=== PATIENT | female | born 1950 | race Caucasian/White ===

== ENCOUNTER → 2019-04-18 11:53 | Outpatient (BNVA) | payer MEDICARE, MEDICAID, SELFPAY | PROVIDERS: Family Provider Nurse Practitioner; PCP Nurse Practitioner; Visit Provider Anesthesiology | DX: M51.36 Other intervertebral disc degeneration, lumbar region (principal); M47.819 Spondylosis without myelopathy or radiculopathy, site unspecified; Z79.891 Long term (current) use of opiate analgesic | CPT/HCPCS: 99213; 99214 ==

== ENCOUNTER → 2019-05-02 08:37 | Outpatient (BNVA) | payer MEDICARE, MEDICAID, SELFPAY | PROVIDERS: Family Provider Nurse Practitioner; PCP Nurse Practitioner; Visit Provider Nurse Practitioner | DX: Z00.00 Encounter for general adult medical examination without abnormal findings (principal) | CPT/HCPCS: 80053; 80061; 82306; 84443; 85025 ==

== ENCOUNTER 2019-07-04 08:40 | Emergency (ER) | payer MEDICARE, MEDICAID, SELFPAY ==
[2019-07-04 08:55] VITALS: BP 110/71; PULSE 99; RESP 16; TEMP 36.7; O2SAT 100; BMI 30.5
[2019-07-04 09:08] VITALS: RESP 18; O2SAT 97
--- NOTE | 2019-07-04 09:09 | PC.NURSE ---
Pt states she wasn't able to get into her doctor's office, so they told her she needs to come into the ER or urgent care.
--- NOTE | 2019-07-04 09:22 | ED_ITS ---
HPI - Neuro Symptoms/Deficit General: Chief Complaint: Neuro Symptoms/Deficit Stated Complaint: HANDS/LEGS NUMB Time Seen by Provider: 07/04/19 08:57 History of Present Illness: HPI Narrative: 68 yo female presents emergency room with bilateral arm numbness that began this morning she is complaining of not being able to feel her arms her feet are having a numb tingling sensation in them. She states repeatedly she has to have ice on her forehead at all times or she will pass out. She is very focused on this. She denies nausea vomiting diarrhea no recent head injury or falls denies any other illness. Review of systems is negative she not had any recent febrile illness cough or shortness of breath. She specifically denies any urinary retention or fecal incontinence. She does mention she has had neck and low back problems in the past. Associated symptoms: Deny chest pain, malaise, nausea or vomiting Review of Systems Const: Denies: fever, chills, body aches, change in appetite, fatigue or malaise ENMT: Denies: throat pain, ear pain, nasal discharge or nasal congestion Card: Denies: chest pain, edema, shortness of breath on exertion or shortness of breath when lying down Resp: Denies: shortness of breath, productive cough or non-productive cough GI: Denies: abdominal pain, nausea, vomiting, vomiting blood, coffee grounds in vomit, diarrhea, constipation, bloating, blood in stool or black tarry stool : Denies: flank pain, difficulty urinating, painful urination, urinary frequency or urinary urgency Skin/Breast: Denies: rash or itching Psych: Reports: anxiety PFSH ED PFSH: Medical History (Updated 07/04/19 @ 11:14 by Faheem Rodríguez DO) Acute pain of left knee Anxiety Chronic sinusitis COPD (chronic obstructive pulmonary disease) DDD (degenerative disc disease), lumbar Dementia Depression Encounter for long-term opiate analgesic use Facet joint disease GERD (gastroesophageal reflux disease) Hyperlipidemia Hypertension Hypothyroidism Insomnia Lumbar foraminal stenosis Other intervertebral disc degeneration, lumbar region Pain in right hip Social History Smoking and tobacco status: never smoked Second hand smoke exposure: No Alcohol intake: never History of recent travel: No Physical Exam Const: GENERAL APPEARANCE: cooperative ORIENTATION/CONSCIOUSNESS: Yes awake, Yes oriented to person, Yes oriented to place and Yes oriented to time HENMT: COMMON NORMALS: normocephalic, head/scalp atraumatic, hearing grossly normal bilaterally, external ears normal, EAC's normal, TM's normal bilaterally, nasal mucous membranes and turbinates normal, moist oral mucous membranes and oropharynx normal HEAD & SCALP: normocephalic and atraumatic NOSE: nasal mucous membranes and turbinates normal EXTERNAL EAR: Yes external ears normal EXTERNAL AUDITORY CANAL: EAC's normal TYMPANIC MEMBRANE: TM's normal bilaterally Eye: COMMON NORMALS: PERRL, EOMs intact bilaterally, conjunctivae normal and no scleral icterus CONJUNCTIVA: Yes conjunctivae normal PUPIL: Yes PERRL Neck/C-Spine: COMMON NORMALS: full ROM, no lymphadenopathy, supple and no JVD Lymph: LYMPHATIC: no lymphadenopathy noted and no lymphedema noted Resp: COMMON NORMALS: normal respiratory effort, no retractions, no use of accessory muscles and clear to auscultation bilaterally AUSCULTATION: clear to auscultation bilaterally Cardio: COMMON NORMALS: no JVD, regular rate, regular rhythm and no murmurs RATE: regular rate RHYTHM: regular rhythm GI: COMMON NORMALS: soft to palpation and no hepatosplenomegaly AUSCULTATION: Yes normoactive bowel sounds PALPATION: Yes soft, No tender, No guarding and Yes no hepatosplenomegaly Extremity: COMMON NORMALS: normal to inspection, normal capillary refill, no clubbing, cyanosis or edema, no calf tenderness and no pedal edema Neuro: SENSORIUM/ORIENTATION: Yes oriented to person, Yes oriented to place and Yes oriented to time Psych: COMMON NORMALS: mental status grossly normal ATTITUDE: Yes other (Anxious) MOOD & AFFECT: Yes anxious Skin: COMMON NORMALS: no rashes or lesions noted GENERAL SKIN EXAM: no rashes or lesions noted Course Vital Signs: Vital signs: Vital Signs Temperature 98.0 F 07/04/19 08:55 Pulse Rate 84 07/04/19 11:43 Respiratory Rate 16 07/04/19 11:43 Blood Pressure 130/76 07/04/19 11:43 Pulse Oximetry 95 07/04/19 11:43 MDM - Neuro Symptoms/Deficit MDM Narrative: Medical decision making narrative: CT neck and low back are unremarkable there is no evidence of nerve impingement. ABG show hyperventilation. At the time we completed this imaging patient was much better all of her symptoms had revolved resolved reviewed the findings with her. Lab Data: Labs: Lab Results 07/04/19 07/04/19 07/04/19 Range/Units 10:02 10:49 10:49 WBC 5.9 (4.0-10.0) 10^3/ uL RBC 2.49 L (4.1-5.3) 10^6/u L Hgb 10.4 L (11.5-15.3) g/dL Hct 30.5 L (37.0-47.0) % MCV 122.5 H (81-99) fL MCH 41.8 H (28.0-34.0) pg MCHC 34.1 (30.0-36.0) g/dL RDW 13.4 (12.1-15.1) % Plt Count 166 (130-400) 10^3/c mm MPV 10.6 H (7.4-10.4) fL Neut % (Auto) 63.6 % Lymph % (Auto) 30.4 % Harper % (Auto) 4.4 % Eos % (Auto) 1.0 % Baso % (Auto) 0.3 % Neut # (Auto) 3.7 (1.8-7.7) 10^3/u L Lymph # (Auto) 1.8 (0.8-4.8) 10^3/u L Harper # (Auto) 0.3 (0.2-0.9) 10^3/u L Eos # (Auto) 0.1 (0.0-0.8) 10^3/u L Baso # (Auto) 0.0 (0.0-0.1) 10^3/u L Nucleated RBC % (a uto) 0 % Nucleated RBCs # 0.0 /100WBC Specimen Type Art Sample Site Lr ABG pH 7.51 H (7.35-7.45) ABG pCO2 30.7 L (35-45) mmHg ABG pO2 90.9 (80.0-100.0) mmH g ABG HCO3 24.2 (22-26) mmol/L ABG O2 Saturation 96.7 ABG Base Excess 1.6 (-2.0-2.0) mmol/ L Shade Test Yes A-a O2 Gradient 18.3 H (5-10) mmHg Hematocrit 34.7 L (37-47) % Hgb O2 Saturation 96.3 (95-100) % Carboxyhemoglobin 0.1 L (0.4-20.1) %THgb Methemoglobin 0.3 L (0.4-1.5) % Total Hemoglobin 11.3 L (12-16) g/dL Sodium 143.0 141 (131-143) mmol/L Potassium 3.7 3.9 (3.5-5.0) mmol/L Glucose 121.0 H 126 H (70-115) mg/dL Ionized Calcium 1.2 (1.1-1.4) mmol/L O2 Delivery Device Ra FiO2 21.0 % Specimen Drawn By Nabde [employer] Technical Assistant ID Nabde Chloride 105 (98-107) mmol/L Carbon Dioxide 26 (22-29) mmol/L Anion Gap 13.9 (5-19) BUN 21 (8-23) mg/dL Creatinine 1.0 H (0.5-0.9) mg/dL GFR Calculation 55.5 L (90-130) mL/min Calculated Osmolal ity 290 (285-295) mOsm/k g Calcium 8.8 (8.5-10.5) mg/dL Total Bilirubin 1.6 H (0.15-1.2) mg/dL AST 24 (0-32) U/L ALT 28 (0-33) U/L Alkaline Phosphata se 71 (35-105) IU/L Total Protein 7.2 (6.6-8.7) g/dL Albumin 4.0 (3.5-5.2) g/dL Globulin 3.2 (1.3-4.6) g/dL Urine Color (Yellow) Urine Appearance (CLEAR) Urine pH (5-7) Ur Specific Gravit y (1.005-1.030) Urine Protein (Negative) Urine Glucose (UA) (Normal) Urine Ketones (Negative) Urine Blood (Negative) Urine Nitrate (Negative) Urine Bilirubin (NEGATIVE) Urine Urobilinogen (Negative) mg/dL Ur Leukocyte Bethany ase (Negative) Urine RBC (0-2) /hpf Urine WBC (0-5) /hpf Ur Squamous Epith Cells (0-5) Amorphous Sediment Urine Bacteria (NONE) Urine Mucus Salicylates < 0.3 L (3-10) mg/dL Urine Opiates Scre en (Negative) ng/mL Acetaminophen < 5.0 L (10-30) ug/mL Ur Barbiturates Sc reen (Negative) ng/mL Ur Phencyclidine S crn (Negative) ng/mL Ur Amphetamines Sc reen (Negative) ng/mL U Benzodiazepines Scrn (Negative) ng/mL Urine Cocaine Scre en (Negative) ng/mL U Marijuana (THC) Screen (Negative) ng/mL Ethyl Alcohol < 10 (0-10) mg/dL 07/04/19 07/04/19 Range/Units 11:03 11:03 WBC (4.0-10.0) 10^3/ uL RBC (4.1-5.3) 10^6/u L Hgb (11.5-15.3) g/dL Hct (37.0-47.0) % MCV (81-99) fL MCH (28.0-34.0) pg MCHC (30.0-36.0) g/dL RDW (12.1-15.1) % Plt Count (130-400) 10^3/c mm MPV (7.4-10.4) fL Neut % (Auto) % Lymph % (Auto) % Harper % (Auto) % Eos % (Auto) % Baso % (Auto) % Neut # (Auto) (1.8-7.7) 10^3/u L Lymph # (Auto) (0.8-4.8) 10^3/u L Harper # (Auto) (0.2-0.9) 10^3/u L Eos # (Auto) (0.0-0.8) 10^3/u L Baso # (Auto) (0.0-0.1) 10^3/u L Nucleated RBC % (a uto) % Nucleated RBCs # /100WBC Specimen Type Sample Site ABG pH (7.35-7.45) ABG pCO2 (35-45) mmHg ABG pO2 (80.0-100.0) mmH g ABG HCO3 (22-26) mmol/L ABG O2 Saturation ABG Base Excess (-2.0-2.0) mmol/ L Shade Test A-a O2 Gradient (5-10) mmHg Hematocrit (37-47) % Hgb O2 Saturation (95-100) % Carboxyhemoglobin (0.4-20.1) %THgb Methemoglobin (0.4-1.5) % Total Hemoglobin (12-16) g/dL Sodium (131-143) mmol/L Potassium (3.5-5.0) mmol/L Glucose (70-115) mg/dL Ionized Calcium (1.1-1.4) mmol/L O2 Delivery Device FiO2 % Specimen Drawn By [employer] Technical Assistant ID Chloride (98-107) mmol/L Carbon Dioxide (22-29) mmol/L Anion Gap (5-19) BUN (8-23) mg/dL Creatinine (0.5-0.9) mg/dL GFR Calculation (90-130) mL/min Calculated Osmolal ity (285-295) mOsm/k g Calcium (8.5-10.5) mg/dL Total Bilirubin (0.15-1.2) mg/dL AST (0-32) U/L ALT (0-33) U/L Alkaline Phosphata se (35-105) IU/L Total Protein (6.6-8.7) g/dL Albumin (3.5-5.2) g/dL Globulin (1.3-4.6) g/dL Urine Color Yellow (Yellow) Urine Appearance Cloudy (CLEAR) Urine pH 5 (5-7) Ur Specific Gravit y 1.025 (1.005-1.030) Urine Protein 1+ H (Negative) Urine Glucose (UA) Norm (Normal) Urine Ketones 1+ H (Negative) Urine Blood Neg (Negative) Urine Nitrate Negative (Negative) Urine Bilirubin 1+ H (NEGATIVE) Urine Urobilinogen 4 H (Negative) mg/dL Ur Leukocyte Bethany ase 2+ H (Negative) Urine RBC None (0-2) /hpf Urine WBC 15-25 H (0-5) /hpf Ur Squamous Epith Cells 0-4 H (0-5) Amorphous Sediment 1+ Urine Bacteria 2+ H (NONE) Urine Mucus Trace Salicylates (3-10) mg/dL Urine Opiates Scre en Negative (Negative) ng/mL Acetaminophen (10-30) ug/mL Ur Barbiturates Sc reen Negative (Negative) ng/mL Ur Phencyclidine S crn Negative (Negative) ng/mL Ur Amphetamines Sc reen Negative (Negative) ng/mL U Benzodiazepines Scrn Negative (Negative) ng/mL Urine Cocaine Scre en Negative (Negative) ng/mL U Marijuana (THC) Screen Negative (Negative) ng/mL Ethyl Alcohol (0-10) mg/dL Discharge Plan Discharge Patient Disposition: Home, Self-Care Clinical Impression: Acute hyperventilation, Anxiety Condition: Stable Prescriptions: New hydroxyzine HCl 10 mg tablet 10 mg PO Q6H PRN (Reason: anxiety) Qty: 10 RF: 0 No Action levothyroxine 50 mcg capsule 50 mcg PO DAILY Qty: 30 RF: 11 fluticasone propionate [Allergy Relief (fluticasone)] 50 mcg/actuation s pray,suspension 2 spray INTRANASAL DAILY RF: 0 buspirone 7.5 mg tablet 7.5 mg PO BID PRN (Reason: Anxiety) RF: 0 cetirizine [Allergy Relief (cetirizine)] 10 mg tablet 10 mg PO DAILY PRN (Reason: Allergy Symptoms) RF: 0 hydrochlorothiazide 25 mg tablet 25 mg PO DAILY RF: 0 naproxen 500 mg tablet 500 mg PO BID PRN (Reason: Pain) RF: 0 Symbicort 160-4.5 mcg/actuation HFA aerosol inhaler 2 puff INHALATION Q12H RF: 0 nystatin 100,000 unit/gram cream 1 applic TOPICAL BID RF: 0 albuterol sulfate [Ventolin HFA] 90 mcg/actuation HFA aerosol inhaler 1 inh INHALATION QID PRN (Reason: Shortness Of Breath) RF: 0 albuterol sulfate 2.5 mg /3 mL (0.083 %) solution for nebulization 2.5 mg INHALATION BID RF: 0 oxycodone-acetaminophen [Percocet] 5-325 mg tablet 1 tab PO TID PRN (Reason: pain) 30 Days Qty: 90 RF: 0 triamcinolone acetonide 0.1 % cream 1 applic TOPICAL DAILY Qty: 30 RF: 0 atorvastatin 20 mg tablet 20 mg PO DAILY RF: 0 ergocalciferol (vitamin D2) 1,250 mcg (50,000 unit) capsule 1,250 mcg PO Q7D RF: 0 lactulose 20 gram/30 mL solution 20 gm PO BID PRN (Reason: Constipation) RF: 0 meclizine 12.5 mg Tablet 12.5 mg PO BID PRN (Reason: Dizziness) RF: 0 Referrals: Boswell,Kristie, RESPITE PROVIDER [Primary Care Provider] - Discharge Diet: Usual diet Discharge Activity: Increase activity as tolerated Patient Instructions: Hyperventilation (ED) Discharge Date/Time: 07/04/19 11:44 Coding Level of Care Code ED Grain Oilseed Or Pasture Grower for Ashia Vega
--- NOTE | 2019-07-04 10:12 | CT_ITS ---
WS: [id number] CT cervical spin wo con* [id number] REASON FOR EXAM: neck pain IV CONTRAST ADMINISTERED: None. TOTAL EXAM DLP: 684.[address] scans at [facility] use at least one of these dose optimization techniques: automat ed exposure control; mA and/or kV adjustment per patient size (includes targeted exams where dose is matched to clinical indication); or iterative reconstruction. FINDINGS: Craniocervical junction anatomy normal no bulging changes or stenosis. C1-C2: Normal vertebral alignment exiting foramina normal no disc bulge or herniation. C2-C3. Exiting foramina normal. No disc bulge or herniation. No central spinal stenosis. C3-C4: Normal vertebral alignment. Exiting foramina normal. No disc bulge or herniation. No spinal st enosis. C4-C5: Normal vertebral alignment. Exiting foramina normal. No disc bulge or herniation. No spinal st enosis. C5-C6: Normal vertebral alignment. Exiting foramina normal. No disc bulge or herniation. No spinal st enosis. C6-C7: Central disc bulge findings. Left-sided mild to moderate exiting foraminal stenosis. No centra l spinal canal stenosis. C7-T1: Normal vertebral alignment. Exiting foramina normal. No disc bulge or herniation. Small ossicles off the vertebral bodies C4-5, C5-[address]/CT cervical spin wo con* [id number] IMPRESSION: Normal CT cervical spine
--- NOTE | 2019-07-04 10:12 | CT_ITS ---
WS: [id number] CT lumbar spine wo con* [id number] REASON FOR EXAM: lumbar back pain IV CONTRAST ADMINISTERED: none TOTAL EXAM DLP: 2291.[address] scans at [facility] use at least one of these dose optimization techniques: automat ed exposure control; mA and/or kV adjustment per patient size (includes targeted exams where dose is matched to clinical indication); or iterative reconstruction. FINDINGS: Lumbar curve convex to the left side. No definite compression changes. Retrolisthesis L1-L2 L2-3, L3-4. T12-L1: Comparison to previous exam the protrusion of the disc is not well seen today at this level. Mild narrowing of the exiting foramina on the left. L1-L2: Exiting foramina on the left narrowed moderate mild retrolisthesis. Schmorl's node present. L2-L3: Disc herniation through the foraminal area laterally. Exiting foramina on the right appear to be normal. L3-L4: Right sided hard disc material paracentral extends to the foraminal area but not through the f oramen. Retrolisthesis is seen with spurring off the posterior body of L3. L4-L5: Mild central disc bulge. Exiting foramina normal. No spinal stenosis. L5-S1: Normal vertebral alignment. Exiting foramina normal. No disc bulge or herniation. No spinal st enosis. Visualized bony pelvis appear to be normal. T12-L1: There is mild disc bulge changes no compressibility today. L2-L3 lateral disc herniation to the left. CT/CT lumbar spine wo con* [id number] IMPRESSION: Mild lumbar scoliosis convex to the left L3-L4 mild central disc bulge or disc material extends. There is again noted ef facement of the subarticular recesses bilaterally. Retrolisthesis with spurring off the posterior body of L3.
[2019-07-04 10:17] LABS: ABG PCO2 30.7 mmHg (35-45); ABG PH Result 7.51 (7.35-7.45); HCO3 ABG 24.2 mmol/L (22-26); PO2 ABG 90.9 mmHg (80.0-100.0)
[2019-07-04 10:18] LABS: Base Excess ABG 1.6 mmol/L (-2.0-2.0); Oxygen Saturation ABG 96.7
[2019-07-04 10:19] LABS: Blood Gas Allen Test YES; Blood Gas Sample Site LR; Oxygen Device RA; Potassium Level - ABG 3.7 mmol/L (3.5-5.0)
[2019-07-04 10:20] LABS: Alveolar-Arterial Oxygen Gradi 18.3 mmHg (5-10); Ionized Calcium Level - ABG 1.2 mmol/L (1.1-1.4)
[2019-07-04 10:21] LABS: Arterial Blood Gas Hematocrit 34.7 % (37-47); Blood Gas Sample Type ART; Carboxyhemoglobin 0.1 %THgb (0.4-20.1); HGB O2 Sat 96.3 % (95-100); Methemoglobin 0.3 % (0.4-1.5); Total Hemoglobin 11.3 g/dL (12-16)
[2019-07-04 10:51] VITALS: O2SAT 96
[2019-07-04 10:58] LABS: Basophils % 0.3 %; Eosinophils # 0.1 10^3/uL (0.0-0.8); Hematocrit 30.5 % (37.0-47.0); Hemoglobin 10.4 g/dL (11.5-15.3); Lymphocytes # 1.8 10^3/uL (0.8-4.8); Lymphocytes % 30.4 %; Mean Corpuscular HGB Conc 34.1 g/dL (30.0-36.0); Mean Corpuscular Hemoglobin 41.8 pg (28.0-34.0); Mean Corpuscular Volume 122.5 fL (81-99); Mean Platelet Volume 10.6 fL (7.4-10.4); Monocytes # 0.3 10^3/uL (0.2-0.9); Monocytes % 4.4 %; Neutrophils # 3.7 10^3/uL (1.8-7.7); Neutrophils % 63.6 %; Nucleated Red Blood Cells % 0 %; Platelet Count 166 10^3/cmm (130-400); Red Blood Count 2.49 10^6/uL (4.1-5.3); Red Cell Distribution Width 13.4 % (12.1-15.1); White Blood Count 5.9 10^3/uL (4.0-10.0)
[2019-07-04 11:16] LABS: Alanine Aminotransferase 28 U/L (0-33); Alkaline Phosphatase 71 IU/L (35-105); Anion Gap 13.9 (5-19); Aspartate Amino Transferase 24 U/L (0-32); Blood Urea Nitrogen 21 mg/dL (8-23); Calcium 8.8 mg/dL (8.5-10.5); Carbon Dioxide 26 mmol/L (22-29); Chloride 105 mmol/L (98-107); Creatinine Clr Calc Pharmacy 63.1974; Globulin 3.2 g/dL (1.3-4.6); Glomerular Filtration Rate 55.5 mL/min (90-130); Glucose 126 mg/dL (65-115); Osmolality Calculated 290 mOsm/kg (285-295); Potassium 3.9 mmol/L (3.5-5.1); Sodium 141 mmol/L (136-145); Total Bilirubin 1.6 mg/dL (0.15-1.2); Total Protein 7.2 g/dL (6.6-8.7)
[2019-07-04] MEDS: LORazepam 2 mg/mL INJ 1 mL 1 MG IVP (11:24)
[2019-07-04 11:41] LABS: Blood Urine Neg (Negative); Glucose Urine UA Norm (Normal); Ketones Urine 1+ (Negative); Protein Urine 1+ (Negative); Specific Gravity, Urine 1.025 (1.005-1.030); Urine Appearance Cloudy (CLEAR); Urine Color Yellow (Yellow); pH Urine 5 (5-7)
[2019-07-04 11:42] LABS: Add Urine Microscopic? YES; Bilirubin Urine 1+ (NEGATIVE); Leukocyte Esterase Urine 2+ (Negative); Nitrate Urine Negative (Negative); Urobilinogen Urine 4 mg/dL (Negative)
[2019-07-04 11:43] VITALS: BP 130/76; PULSE 84; RESP 16; O2SAT 95
[2019-07-04 11:44] LABS: Acetaminophen < 5.0 ug/mL (10-30); Alcohol Level < 10 mg/dL (0-10); Salicylate < 0.3 mg/dL (3-10)
[2019-07-04 11:46] LABS: Amphetamines Screen Urine Negative (Negative); Barbiturates Screen Urine Negative (Negative); Benzodiazepines Screen Urine Negative (Negative); Cocaine Screen Urine Negative (Negative); Opiate Screen Urine Negative (Negative); PCP Screen Urine Negative (Negative); THC Screen Urine Negative (Negative)
[2019-07-04 11:47] LABS: Squamous Epithelial Cell Urine 0-4 (0-5); WBC Urine 15-25 /hpf (0-5)
[2019-07-04 11:49] LABS: Add Urine Culture? Yes; Amorphous Sediment Urine 1+; Bacteria Urine 2+; Mucus Urine TRACE
== END 2019-07-04 11:44 | disposition home or self-care (01) ==
PROVIDERS: Emergency Provider Family Medicine; PCP Nurse Practitioner
DX: R06.4 Hyperventilation (principal); F41.9 Anxiety disorder, unspecified; J44.9 Chronic obstructive pulmonary disease, unspecified; F03.90 Unspecified dementia, unspecified severity, without behavioral disturbance, psychotic disturbance, mood disturbance, and anxiety; E78.5 Hyperlipidemia, unspecified; I10 Essential (primary) hypertension; E03.9 Hypothyroidism, unspecified; Z79.899 Other long term (current) drug therapy
CPT/HCPCS: 12345; 36600; 72125; 72131; 80051; 80053; 80306; 80307; 81001; 82810; 83986; 85025; 87086; 96374; 96375; 99283; A9270; J2060

== ENCOUNTER 2019-07-25 19:45 | Emergency (ER) | payer MEDICARE, MEDICAID, SELFPAY ==
[2019-07-25 19:47] VITALS: BP 146/91; PULSE 82; RESP 18; TEMP 36.6; O2SAT 99; BMI 32.8
--- NOTE | 2019-07-25 19:56 | XRR_ITS ---
PROCEDURE INFORMATION: Exam: XR Chest, 1 View Exam date and time: 07/25/2019 8:51 PM Age: 68 years old Clinical indication: Injury or trauma; Initial encounter; Blunt trauma (contusions or hematomas); Patient HX: Fall 3 days ago; Additional info: Cp TECHNIQUE: Imaging protocol: XR of the chest Views: 1 view. COMPARISON: [place] Chest 1 [place] [id number] 04/02/2018 7:43 PM FINDINGS: Lungs: Evaluation of the lung graham is limited by overpenetration. Chronic granulomatous disease. Pleural space: No pleural effusion. Heart/Mediastinum: No cardiomegaly. Bones/joints: Degenerative change. XR/XR chest 1V portable [id number] IMPRESSION: Evaluation of the lung graham is limited by overpenetration. No gross evidence for acute airspace or pleural disease.
--- NOTE | 2019-07-25 20:01 | W.ED.CHESTPA ---
HPI - Chest Pain General: Chief Complaint: Chest Pain Stated Complaint: HYPOTENSION Time Seen by Provider: 07/25/19 19:59 Source: patient Mode of arrival: ambulatory Limitations: no limitations History of Present Illness: HPI narrative: Patient comes in today with complaints of inability to stand without low back pain and right hip pain. Patient reports about 3 days ago she was getting up from the toilet and fell. Patient reports that occasionally she falls and this is not abnormal for her over the last 3 days she has been unable to stand without the assistance of a walker which is new for her and she has had increase in her back and right hip pain. Patient appears well. Patient appears in no pain at rest. Review of Systems General: Reports: 10 or more systems reviewed and unremarkable except in HPI and below Musc: Reports: back pain and joint pain (rt hip) [facility] PFSH: Medical History (Updated 07/25/19 @ 21:13 by DEYVI Garcia) Acute pain of left knee Anxiety Chronic sinusitis COPD (chronic obstructive pulmonary disease) DDD (degenerative disc disease), lumbar Dementia Depression Encounter for long-term opiate analgesic use Facet joint disease GERD (gastroesophageal reflux disease) Hyperlipidemia Hypertension Hypothyroidism Insomnia Lumbar foraminal stenosis Other intervertebral disc degeneration, lumbar region Pain in right hip Surgical History History of surgery on upper extremity Family History Mother Hypertension Father Hypertension Social History Smoking and tobacco status: never smoked Second hand smoke exposure: No Alcohol intake: never History of recent travel: No Physical Exam Const: COMMON NORMALS: no acute distress and patient oriented x3 GENERAL APPEARANCE: cooperative HENMT: COMMON NORMALS: normocephalic, TM's normal bilaterally and Normal external nose present HEAD & SCALP: normal to inspection and normocephalic NOSE: Normal external nose present TYMPANIC MEMBRANE: TM's normal bilaterally MOUTH: Normal oral and palatal mucosa present THROAT: posterior oropharynx normal Eye: GENERAL EYE: appearance normal, both eyes and all related structures Neck/C-Spine: COMMON NORMALS: full ROM Lymph: LYMPHATIC: no lymphadenopathy noted Chest: COMMONS NORMALS: normal inspection of the chest Resp: COMMON NORMALS: normal respiratory effort EFFORT & INSPECTION: Yes able to speak in complete sentences Cardio: COMMON NORMALS: regular rate and regular rhythm RATE: regular rate RHYTHM: regular rhythm GI: COMMON NORMALS: non-tender : COMMON NORMALS: Yes no CVA tenderness BLADDER/KIDNEY EXAM: Yes no CVA tenderness Back/Pelvis: COMMON NORMALS: no CVA tenderness and thoracic and lumbar spine normal to inspection Extremity: NARRATIVE EXTREMITY EXAM: Right anterior thigh and hip pain on palpation. Neuro: COMMON NORMALS: patient oriented x3 and moves all extremities Psych: COMMON NORMALS: mental status grossly normal and cooperative Skin: COMMON NORMALS: no rashes or lesions noted GENERAL SKIN EXAM: no rashes or lesions noted Course Vital Signs: Vital signs: Vital Signs Temperature 97.8 F 07/25/19 19:47 Pulse Rate 84 07/25/19 20:34 Respiratory Rate 18 07/25/19 19:47 Blood Pressure 125/72 07/25/19 20:34 Pulse Oximetry 99 07/25/19 19:47 MDM - Chest Pain MDM Narrative: Medical decision making narrative: Patient comes in for a fall approximately 3 days ago and low back pain and right hip pain. Patient states that she is wait and get into a pain specialist due to the fall and increased back pain but did not think that she could wait, and was concerned for injury. On exam we note a contusion to the right thigh. Respirations are even lungs are clear to auscultation. Skin is warm and dry. X-ray of the pelvis and right hip noted no acute fracture. X-ray of the low back noted no acute fracture. Laboratory values noted a urinary tract infection with significant white blood cell count. Hemoglobin hematocrit was down on 10.4-8.7 but seems to been declining over the last year. Reviewed with Dr. Nicholas who thought that it was probably due to the contusion on the patient's thigh. Remainder of the labs were unremarkable. Patient does appear to have some macrocytic anemia that is chronic for her. Patient has been unable to see her primary care due to her clinicians illness. I reviewed the anemia with patient recommended that she follow-up with hematology for further evaluation she agreed to the plan and case management will assist with the appointment. Patient will take antibiotics for urinary tract infection and follow-up with urgent care or other primary care provider for recheck of urine in 1 week. Patient reports understanding of care plan and need for follow-up or return to the ER for worsening symptoms. Lab Data: Labs: Lab Results 07/25/19 07/25/19 07/25/19 Range/Units 20:03 20:03 20:03 WBC 3.7 L (4.0-10.0) 10^3/ uL RBC 2.04 L (4.1-5.3) 10^6/u L Hgb 8.7 L (11.5-15.3) g/dL Hct 25.0 L (37.0-47.0) % MCV 122.5 H (81-99) fL MCH 42.6 H (28.0-34.0) pg MCHC 34.8 (30.0-36.0) g/dL RDW 13.2 (12.1-15.1) % Plt Count 114 L (130-400) 10^3/c mm MPV 12.1 H (7.4-10.4) fL Neut % (Auto) 47.9 % Lymph % (Auto) 46.0 % Potter % (Auto) 4.1 % Eos % (Auto) 1.4 % Baso % (Auto) 0.3 % Neut # (Auto) 1.8 (1.8-7.7) 10^3/u L Lymph # (Auto) 1.7 (0.8-4.8) 10^3/u L Potter # (Auto) 0.2 (0.2-0.9) 10^3/u L Eos # (Auto) 0.1 (0.0-0.8) 10^3/u L Baso # (Auto) 0.0 (0.0-0.1) 10^3/u L Nucleated RBC % (a uto) 0 % Nucleated RBCs # 0.0 /100WBC Sodium 140 (136-145) mmol/L Potassium 3.8 (3.5-5.1) mmol/L Chloride 106 (98-107) mmol/L Carbon Dioxide 24 (22-29) mmol/L Anion Gap 13.8 (5-19) BUN 18 (8-23) mg/dL Creatinine 0.9 (0.5-0.9) mg/dL GFR Calculation 62.6 L (90-130) mL/min Glucose 116 H (65-115) mg/dL Calculated Osmolal ity 287 (285-295) mOsm/k g Calcium 8.6 (8.5-10.5) mg/dL Total Bilirubin 1.6 H (0.15-1.2) mg/dL AST 23 (0-32) U/L ALT 23 (0-33) U/L Alkaline Phosphata se 55 (35-105) IU/L Troponin T Baselin e 8 (0-10) ng/mL Total Protein 6.2 L (6.6-8.7) g/dL Albumin 3.9 (3.5-5.2) g/dL Globulin 2.3 (1.3-4.6) g/dL Urine Color (Yellow) Urine Appearance (CLEAR) Urine pH (5-7) Ur Specific Gravit y (1.005-1.030) Urine Protein (Negative) Urine Glucose (UA) (Normal) Urine Ketones (Negative) Urine Blood (Negative) Urine Nitrate (Negative) Urine Bilirubin (NEGATIVE) Urine Urobilinogen (Negative) mg/dL Ur Leukocyte Bethany ase (Negative) Urine RBC (0-2) /hpf Urine WBC (0-5) /hpf Ur Squamous Epith Cells (0-5) Urine Bacteria (NONE) Urine Mucus 07/25/19 Range/Units 20:40 WBC (4.0-10.0) 10^3/ uL RBC (4.1-5.3) 10^6/u L Hgb (11.5-15.3) g/dL Hct (37.0-47.0) % MCV (81-99) fL MCH (28.0-34.0) pg MCHC (30.0-36.0) g/dL RDW (12.1-15.1) % Plt Count (130-400) 10^3/c mm MPV (7.4-10.4) fL Neut % (Auto) % Lymph % (Auto) % Potter % (Auto) % Eos % (Auto) % Baso % (Auto) % Neut # (Auto) (1.8-7.7) 10^3/u L Lymph # (Auto) (0.8-4.8) 10^3/u L Potter # (Auto) (0.2-0.9) 10^3/u L Eos # (Auto) (0.0-0.8) 10^3/u L Baso # (Auto) (0.0-0.1) 10^3/u L Nucleated RBC % (a uto) % Nucleated RBCs # /100WBC Sodium (136-145) mmol/L Potassium (3.5-5.1) mmol/L Chloride (98-107) mmol/L Carbon Dioxide (22-29) mmol/L Anion Gap (5-19) BUN (8-23) mg/dL Creatinine (0.5-0.9) mg/dL GFR Calculation (90-130) mL/min Glucose (65-115) mg/dL Calculated Osmolal ity (285-295) mOsm/k g Calcium (8.5-10.5) mg/dL Total Bilirubin (0.15-1.2) mg/dL AST (0-32) U/L ALT (0-33) U/L Alkaline Phosphata se (35-105) IU/L Troponin T Baselin e (0-10) ng/mL Total Protein (6.6-8.7) g/dL Albumin (3.5-5.2) g/dL Globulin (1.3-4.6) g/dL Urine Color Dark yellow (Yellow) Urine Appearance Sl cloudy A (CLEAR) Urine pH 5 (5-7) Ur Specific Gravit y 1.025 (1.005-1.030) Urine Protein Neg (Negative) Urine Glucose (UA) Norm (Normal) Urine Ketones 1+ H (Negative) Urine Blood Neg (Negative) Urine Nitrate Negative (Negative) Urine Bilirubin 1+ H (NEGATIVE) Urine Urobilinogen 4 H (Negative) mg/dL Ur Leukocyte Bethany ase 2+ H (Negative) Urine RBC 0-4 H (0-2) /hpf Urine WBC 55-80 H (0-5) /hpf Ur Squamous Epith Cells 0-4 H (0-5) Urine Bacteria 2+ H (NONE) Urine Mucus 2+ EKG Data^: EKG 1: Attestation: I personally reviewed and interpreted this EKG as follows: (2013, sinus rhythm 77 bpm regular, no ectopy, no ST elevation) Discharge Plan Discharge Patient Disposition: Home, Self-Care Clinical Impression: Acute UTI Contusion of right anterior thigh Qualifiers: Encounter type: initial encounter Qualified Code(s): S70.11XA - Contusion of right thigh, initial encounter Anemia Qualifiers: Anemia type: unspecified type Qualified Code(s): D64.9 - Anemia, unspecified Condition: Stable Prescriptions: New cephalexin 500 mg capsule 500 mg PO BID 7 Days Qty: 14 RF: 0 vitamin B complex Tablet 1 tab PO DAILY Qty: 30 RF: 0 No Action levothyroxine 50 mcg capsule 50 mcg PO DAILY Qty: 30 RF: 11 fluticasone propionate [Allergy Relief (fluticasone)] 50 mcg/actuation spray,suspension 2 spray INTRANASAL DAILY RF: 0 buspirone 7.5 mg tablet 7.5 mg PO BID PRN (Reason: Anxiety) RF: 0 cetirizine [Allergy Relief (cetirizine)] 10 mg tablet 10 mg PO DAILY PRN (Reason: Allergy Symptoms) RF: 0 hydrochlorothiazide 25 mg tablet 25 mg PO DAILY RF: 0 naproxen 500 mg tablet 500 mg PO BID PRN (Reason: Pain) RF: 0 Symbicort 160-4.5 mcg/actuation HFA aerosol inhaler 2 puff INHALATION Q12H RF: 0 nystatin 100,000 unit/gram cream 1 applic TOPICAL BID RF: 0 albuterol sulfate [Ventolin HFA] 90 mcg/actuation HFA aerosol inhaler 1 inh INHALATION QID PRN (Reason: Shortness Of Breath) RF: 0 albuterol sulfate 2.5 mg /3 mL (0.083 %) solution for nebulization 2.5 mg INHALATION BID RF: 0 ibuprofen 600 mg tablet 600 mg PO TID RF: 0 oxycodone-acetaminophen [Percocet] 5-325 mg tablet 1 tab PO TID PRN (Reason: pain) 30 Days Qty: 90 RF: 0 oxycodone-acetaminophen [Percocet] 5-325 mg tablet 1 tab PO TID PRN (Reason: pain) 30 Days Qty: 90 RF: 0 triamcinolone acetonide 0.1 % cream 1 applic TOPICAL DAILY Qty: 30 RF: 0 hydroxyzine HCl 10 mg tablet 10 mg PO Q6H PRN (Reason: anxiety) 15 Days Qty: 30 RF: 0 atorvastatin 20 mg tablet 20 mg PO DAILY RF: 0 ergocalciferol (vitamin D2) 1,250 mcg (50,000 unit) capsule 1,250 mcg PO Q7D RF: 0 lactulose 20 gram/30 mL solution 20 gm PO BID PRN (Reason: Constipation) RF: 0 meclizine 12.5 mg Tablet 12.5 mg PO BID PRN (Reason: Dizziness) RF: 0 Discharge Orders: Discharge Order (Routine); Ordered 07/25/19 Ordered By: Boni Sanchez Referrals: Kristie Boswell FNP [Primary Care Provider] - Discharge Diet: Usual diet Discharge Activity: Increase activity as tolerated Patient Instructions: Urinary Tract Infection in Women (ED) Activity Restrictions/Additional Instructions: Drink plenty of fluids. Healthy diet and activity as tolerated. Take medications as directed. Follow-up with primary care in 1 week. Case management will contact you in regards to follow-up with [facility] for further evaluation of anemia. Return to the ER for worsening symptoms or new concerns. Coding Level of Care Code ED Tax Compliance Representative for [facility]ia Fwd Exam Comprehensive
[2019-07-25 20:07] LABS: Basophils % 0.3 %; Eosinophils # 0.1 10^3/uL (0.0-0.8); Eosinophils % 1.4 %; Hemoglobin 8.7 g/dL (11.5-15.3); Lymphocytes # 1.7 10^3/uL (0.8-4.8); Mean Corpuscular HGB Conc 34.8 g/dL (30.0-36.0); Mean Corpuscular Hemoglobin 42.6 pg (28.0-34.0); Mean Corpuscular Volume 122.5 fL (81-99); Mean Platelet Volume 12.1 fL (7.4-10.4); Monocytes # 0.2 10^3/uL (0.2-0.9); Monocytes % 4.1 %; Neutrophils # 1.8 10^3/uL (1.8-7.7); Neutrophils % 47.9 %; Nucleated Red Blood Cells % 0 %; Platelet Count 114 10^3/cmm (130-400); Red Blood Count 2.04 10^6/uL (4.1-5.3); Red Cell Distribution Width 13.2 % (12.1-15.1); White Blood Count 3.7 10^3/uL (4.0-10.0)
--- NOTE | 2019-07-25 20:09 | XRR_ITS ---
PROCEDURE INFORMATION: Exam: XR Right Hip with Pelvis when Performed Exam date and time: 07/25/2019 8:51 PM Age: 68 years old Clinical indication: Injury or trauma; Fall; Initial encounter; Blunt trauma (contusions or hematomas); Right; Hip TECHNIQUE: Imaging protocol: XR Right hip with pelvis when performed. Views: 1 view. COMPARISON: CR Hip 2-3v RIGHT wwo Pelv* [id number] 10/10/2016 7:37 PM FINDINGS: Bones/joints: No acute bony injury or malalignment. Degenerative change and osteitis pubis. Soft tissues: Skin folds. Vasculature: Subcentimeter pelvic calcifications, presumably vascular in etiology. XR/XR hip RT 2-3V wo/w pel* [id number] IMPRESSION: No acute bony injury or malalignment.
--- NOTE | 2019-07-25 20:10 | XRR_ITS ---
PROCEDURE INFORMATION: Exam: XR Lumbosacral Spine, 2 or 3 Views Exam date and time: 07/25/2019 8:51 PM Age: 68 years old Clinical indication: Injury or trauma; Initial encounter; Blunt trauma (contusions or hematomas); Patient HX: Fall 3 days ago TECHNIQUE: Imaging protocol: XR of the lumbosacral spine, 2 or 3 views. COMPARISON: CR Myelogram Lumbar Spine [id number] 03/23/2017 8:46 AM FINDINGS: Vertebrae: No acute bony injury in the lumbar spine. Mild retrolisthesis of L3 on L4. Degenerative change. Gastrointestinal tract: Nondilated air-filled loops of small bowel and prominent stool. Soft tissues: Unremarkable as visualized. XR/XR lumbar spine 2-3V* [id number] IMPRESSION: No acute bony injury in the lumbar spine.
[2019-07-25 20:26] LABS: Alanine Aminotransferase 23 U/L (0-33); Albumin Level 3.9 g/dL (3.5-5.2); Alkaline Phosphatase 55 IU/L (35-105); Anion Gap 13.8 (5-19); Aspartate Amino Transferase 23 U/L (0-32); Blood Urea Nitrogen 18 mg/dL (8-23); Calcium 8.6 mg/dL (8.5-10.5); Carbon Dioxide 24 mmol/L (22-29); Chloride 106 mmol/L (98-107); Globulin 2.3 g/dL (1.3-4.6); Glomerular Filtration Rate 62.6 mL/min (90-130); Glucose 116 mg/dL (65-115); Osmolality Calculated 287 mOsm/kg (285-295); Potassium 3.8 mmol/L (3.5-5.1); Sodium 140 mmol/L (136-145); Total Bilirubin 1.6 mg/dL (0.15-1.2); Total Protein 6.2 g/dL (6.6-8.7)
[2019-07-25 20:28] LABS: Troponin(5th) Baseline 8 ng/mL (0-10)
[2019-07-25 20:32] LABS: Slide Review Slide Review Perform
[2019-07-25 20:34] VITALS: BP 124/87; BP 125/72; BP 127/95; PULSE 84; PULSE 85; PULSE 86
[2019-07-25] MEDS: sodium chloride 0.9% 500 ML IV (20:46)
[2019-07-25 20:51] LABS: Add Urine Microscopic? YES; Bilirubin Urine 1+ (NEGATIVE); Blood Urine Neg (Negative); Glucose Urine UA Norm (Normal); Ketones Urine 1+ (Negative); Leukocyte Esterase Urine 2+ (Negative); Nitrate Urine Negative (Negative); Protein Urine Neg (Negative); Specific Gravity, Urine 1.025 (1.005-1.030); Urine Color Dark Yellow (Yellow); Urobilinogen Urine 4 mg/dL (Negative); pH Urine 5 (5-7)
[2019-07-25 20:57] LABS: Add Urine Culture? Yes; Bacteria Urine 2+; Mucus Urine 2+; RBC Urine 0-4 /hpf (0-2); Squamous Epithelial Cell Urine 0-4 (0-5); WBC Urine 55-80 /hpf (0-5)
[2019-07-25] MEDS: cefTRIAXone 1,000 MG in sodium chloride 0.9% (plus) 50 ML 100 MG IV (21:28)
[2019-07-25] MEDS: cyanocobalamin 1,000 mcg/mL SDV 1000 MCG IM (21:36)
[2019-07-25 21:45] VITALS: BP 142/74; PULSE 72; RESP 18; O2SAT 98
--- NOTE | 2019-07-25 21:56 | ECG_ITS ---
Measurements Intervals [place] Rate: 77 P: -23 OK: 146 QRS: 8 QRSD: 75 T: 5 QT: 370 QTc: 420 SINUS RHYTHM LOW QRS VOLTAGE IN PRECORDIAL LEADS [QRS DEFLECTION < 1.0 mV IN CHEST LEADS] NONSPECIFIC T-WAVE ABNORMALITY Compared to ECG 04/22/2017 06:39:50 Low QRS voltage now present T-wave abnormality still present Electronically Signed On 07-26-2019 8:17:01 CDT by Renard Liang M.D. [email or web address]
--- NOTE | 2019-07-29 15:25 | DCPLANNER ---
litigation manager had message to refer patient to hematology for a follow up appointment. litigation manager called the assessment coordinator at the [facility], Robina Roach, and gave clinic patients information. litigation manager was told that patients information would be printed and reviewed.
--- NOTE | 2019-08-13 15:42 | DCPLANNER ---
Patient had a follow up appointment scheduled for 08.08.[address] Ware, patient did attend the appointment.
== END 2019-07-25 21:47 | disposition home or self-care (01) ==
PROVIDERS: Emergency Medicine; Emergency Provider Nurse Practitioner Family; PCP Nurse Practitioner
DX: N39.0 Urinary tract infection, site not specified (principal); D64.9 Anemia, unspecified; S70.11XA Contusion of right thigh, initial encounter; W18.39XA Other fall on same level, initial encounter; J44.9 Chronic obstructive pulmonary disease, unspecified; F03.90 Unspecified dementia, unspecified severity, without behavioral disturbance, psychotic disturbance, mood disturbance, and anxiety; E78.5 Hyperlipidemia, unspecified; I10 Essential (primary) hypertension
CPT/HCPCS: 12345; 71045; 72100; 73502; 80053; 81001; 84484; 85025; 87077; 87086; 87186; 93005; 96365; 96372; 99283; 99284; J0696; J3411; J3420; J7040

== ENCOUNTER 2019-08-01 15:26 | Emergency (ER) | payer MEDICARE, MEDICAID, SELFPAY ==
[2019-08-01] VITALS (7 sets, daily range): BP systolic 137–172; BP diastolic 65–102; PULSE 64–77; RESP 16–18; TEMP 36.5–36.8; O2SAT 96–99; BMI 31.3
[2019-08-01 16:15] LABS: Add Urine Microscopic? NO
[2019-08-01 16:18] LABS: Bilirubin Urine Neg (NEGATIVE); Blood Urine Neg (Negative); Glucose Urine UA Norm (Normal); Ketones Urine Negative (Negative); Leukocyte Esterase Urine Negative (Negative); Nitrate Urine Negative (Negative); Protein Urine Neg (Negative); Urine Appearance Clear (CLEAR); Urine Color Amber (Yellow); Urobilinogen Urine 4 mg/dL (Negative); pH Urine 5 (5-7)
--- NOTE | 2019-08-01 16:18 | ECG_ITS ---
Measurements Intervals [place] Rate: 65 P: 7 LA: 156 QRS: 9 QRSD: 84 T: 21 QT: 401 QTc: 417 SINUS RHYTHM WITH SINUS ARRHYTHMIA ST DEVIATION AND MODERATE T-WAVE ABNORMALITY, CONSIDER LATERAL ISCHEMIA [-0.1+ mV mV T WAVE IN I/aVL/V5/V6] Compared to ECG 07/25/2019 20:13:52 Possible ischemia now present T-wave abnormality still present Electronically Signed On 08-02-2019 8:05:24 CDT by Jemma Aldrich M.D. [email or web address]
--- NOTE | 2019-08-01 16:18 | XRR_ITS ---
PROCEDURE INFORMATION: Exam: XR Chest, 1 View Exam date and time: 08/01/2019 4:48 PM Age: 68 years old Clinical indication: Pain; Other: Epigastric; Additional info: Epigastric pain TECHNIQUE: Imaging protocol: XR of the chest Views: 1 view. COMPARISON: CR XR chest 1V portable [id number] 07/25/2019 8:40 PM FINDINGS: Lungs: Unremarkable. No consolidation. Calcified granulomas are noted. Pleural space: Unremarkable. No pleural effusion. No pneumothorax. Heart/Mediastinum: Unremarkable. No cardiomegaly. Bones/joints: No acute abnormality. XR/XR chest 1V portable [id number] IMPRESSION: No acute findings. Unchanged exam.
--- NOTE | 2019-08-01 16:19 | ED_ITS ---
Documented by User: Georgiana Holloway MD 08/02/19 06:29 HPI - Abdominal Pain General: Chief Complaint: Abdominal Pain Stated Complaint: ABDOMINAL PAIN Time Seen by Provider: 08/01/19 15:58 History of Present Illness: HPI narrative: This patient is a 68-year-old female presenting with sudden onset of epigastric pain and pressure about 2 hours ago. She and her were riding in the car when the pain started. She says it tightens up and she is afraid that it might be her heart. She denies shortness of breath, vomiting, cough, constipation or diarrhea. She is currently being treated for a urinary tract infection and is feeling better from that. She tells me that about 8 days ago she was here and seen for a syncopal episode where she collapsed and injured her right leg. She states she cannot walk because of the bruise on her leg. She denies any history of prior episodes of pain similar to this. She has never had a heart attack. She has had CHF. She sees the pain clinic for chronic back pain and describes numbness in both legs which is chronic. MD elicited complaint: abdominal pain Pertinent past history: other (CHF, morbid obesity) Onset (ago): hour(s) (2) Severity: severe Quality: fullness and sharp Radiation: epigastric Associated Symptoms: Reports syncope (Last week, was seen here for that); Denies chills, fever(s), nausea and vomiting Review of Systems General: Reports: 10 or more systems reviewed and unremarkable except in HPI and below Const: Denies: fever(s), chills, fatigue or malaise Eyes: Denies: change in vision ENMT: Denies: odynophagia Card: Reports: syncope (Last week, was seen here for that); Denies: chest pain or swelling of feet/ankles Resp: Denies: dyspnea, productive cough or non-productive cough GI: Reports: abdominal pain; Denies: nausea or vomiting : Denies: flank pain or difficulty voiding Musc: Reports: back pain (Chronic); Denies: neck pain Skin/Breast: Denies: rash Neuro: Reports: numbness in extremities and difficulty walking; Denies: headache(s) or weakness in extremities Crow/Lymph: Denies: easy bruising or easy bleeding PFS ED PFSH: Medical History Acute pain of left knee Anxiety Chronic sinusitis COPD (chronic obstructive pulmonary disease) DDD (degenerative disc disease), lumbar Dementia Depression Encounter for long-term opiate analgesic use Facet joint disease GERD (gastroesophageal reflux disease) Hyperlipidemia Hypertension Hypothyroidism Insomnia Lumbar foraminal stenosis Other intervertebral disc degeneration, lumbar region Pain in right hip Surgical History History of surgery on upper extremity Family History Mother Hypertension Father Hypertension Social History Smoking and tobacco status: never smoked Second hand smoke exposure: No Alcohol intake: never History of recent travel: No Physical Exam Const: COMMON NORMALS: no acute distress, patient oriented x3, no limitations and alert GENERAL APPEARANCE: cooperative and comfortable NUTRITIONAL APPEARANCE: obese morbidly obese HENMT: HEAD & SCALP: normal to inspection FACE & SINUS: normal facial exam Eye: GENERAL EYE: appearance normal, both eyes and all related structures Neck/C-Spine: COMMON NORMALS: supple, no meningeal signs and no JVD Chest: COMMONS NORMALS: normal inspection of the chest Resp: COMMON NORMALS: normal respiratory effort, No use of accessory muscles and clear to auscultation bilaterally AUSCULTATION: clear to auscultation bilaterally Cardio: COMMON NORMALS: no JVD, regular rate, regular rhythm and No murmurs present (Cardio) RATE: regular rate RHYTHM: regular rhythm GI: COMMON NORMALS: Normal to inspection, nondistended, normoactive bowel sounds present and Soft to palpation INSPECTION: Yes normal to inspection AUSCULTATION: Yes normoactive bowel sounds PALPATION: Yes Soft to palpation and Yes Tenderness to palpation present (GI) Details: other (Epigastric) Back/Pelvis: COMMON NORMALS: thoracic and lumbar spine normal to inspection Extremity: RIGHT LOWER EXTREMITY: Yes upper leg (Ecchymosis right medial thigh) Neuro: COMMON NORMALS: patient oriented x3, moves all extremities, no focal motor deficits and no sensory deficits noted SENSORIUM/ORIENTATION: Yes alert MENINGEAL SIGNS: Yes no meningeal signs SENSORY EXAM: Yes extremities (Patient says she chronically has no feeling in either leg. Related to her back pain) Psych: COMMON NORMALS: mental status grossly normal, cooperative and normal affect Skin: COMMON NORMALS: no rashes or lesions noted and turgor normal GENERAL SKIN EXAM: no rashes or lesions noted and turgor normal Course Vital Signs: Vital signs: Vital Signs Temperature 97.7 F 08/01/19 20:49 Pulse Rate 77 08/01/19 20:59 Respiratory Rate 18 08/01/19 20:59 Blood Pressure 137/65 08/01/19 20:59 Pulse Oximetry 99 08/01/19 20:59 MDM - Abdominal Pain Lab Data: Labs: Lab Results 08/01/19 08/01/19 08/01/19 Range/Units 15:48 16:35 16:35 WBC 7.5 (4.0-10.0) 10^3/ uL RBC 2.40 L (4.1-5.3) 10^6/u L Hgb 9.4 L (11.5-15.3) g/dL Hct 28.3 L (37.0-47.0) % MCV 117.9 H (81-99) fL MCH 39.2 H (28.0-34.0) pg MCHC 33.2 (30.0-36.0) g/dL RDW 14.8 (12.1-15.1) % Plt Count 274 (130-400) 10^3/c mm MPV 10.2 (7.4-10.4) fL Neut % (Auto) 62.6 % Lymph % (Auto) 25.5 % Branch % (Auto) 9.8 % Eos % (Auto) 1.7 % Baso % (Auto) 0.1 % Neut # (Auto) 4.7 (1.8-7.7) 10^3/u L Lymph # (Auto) 1.9 (0.8-4.8) 10^3/u L Branch # (Auto) 0.7 (0.2-0.9) 10^3/u L Eos # (Auto) 0.1 (0.0-0.8) 10^3/u L Baso # (Auto) 0.0 (0.0-0.1) 10^3/u L Nucleated RBC % (a uto) 0 % Nucleated RBCs # 0.0 /100WBC Sodium 141 (136-145) mmol/L Potassium 3.3 L (3.5-5.1) mmol/L Chloride 107 (98-107) mmol/L Carbon Dioxide 21 L (22-29) mmol/L Anion Gap 16.3 (5-19) BUN 10 (8-23) mg/dL Creatinine 1.0 H (0.5-0.9) mg/dL GFR Calculation 55.5 L (90-130) mL/min Glucose 136 H (65-115) mg/dL Calculated Osmolal ity 290 (285-295) mOsm/k g Lactate (0.5-2.2) mmol/L Calcium 8.2 L (8.5-10.5) mg/dL Total Bilirubin 0.9 (0.15-1.2) mg/dL AST 13 (0-32) U/L ALT 12 (0-33) U/L Alkaline Phosphata se 61 (35-105) IU/L Troponin T Baselin e (0-10) ng/L Troponin T 120 Min [place] (0-10) ng/L Delta Troponin T (0-10) ABS# Total Protein 5.8 L (6.6-8.7) g/dL Albumin 3.9 (3.5-5.2) g/dL Globulin 1.9 (1.3-4.6) g/dL Lipase 16 (13-60) U/L Urine Color Marilynn (Yellow) Urine Appearance Clear (CLEAR) Urine pH 5 (5-7) Ur Specific Gravit y 1.020 (1.005-1.030) Urine Protein Neg (Negative) Urine Glucose (UA) Norm (Normal) Urine Ketones Negative (Negative) Urine Blood Neg (Negative) Urine Nitrate Negative (Negative) Urine Bilirubin Neg (NEGATIVE) Urine Urobilinogen 4 H (Negative) mg/dL Ur Leukocyte Bethany ase Negative (Negative) 08/01/19 08/01/19 08/01/19 Range/Units 16:35 16:35 19:08 WBC (4.0-10.0) 10^3/ uL RBC (4.1-5.3) 10^6/u L Hgb (11.5-15.3) g/dL Hct (37.0-47.0) % MCV (81-99) fL MCH (28.0-34.0) pg MCHC (30.0-36.0) g/dL RDW (12.1-15.1) % Plt Count (130-400) 10^3/c mm MPV (7.4-10.4) fL Neut % (Auto) % Lymph % (Auto) % Branch % (Auto) % Eos % (Auto) % Baso % (Auto) % Neut # (Auto) (1.8-7.7) 10^3/u L Lymph # (Auto) (0.8-4.8) 10^3/u L Branch # (Auto) (0.2-0.9) 10^3/u L Eos # (Auto) (0.0-0.8) 10^3/u L Baso # (Auto) (0.0-0.1) 10^3/u L Nucleated RBC % (a uto) % Nucleated RBCs # /100WBC Sodium (136-145) mmol/L Potassium (3.5-5.1) mmol/L Chloride (98-107) mmol/L Carbon Dioxide (22-29) mmol/L Anion Gap (5-19) BUN (8-23) mg/dL Creatinine (0.5-0.9) mg/dL GFR Calculation (90-130) mL/min Glucose (65-115) mg/dL Calculated Osmolal ity (285-295) mOsm/k g Lactate 2.6 H (0.5-2.2) mmol/L Calcium (8.5-10.5) mg/dL Total Bilirubin (0.15-1.2) mg/dL AST (0-32) U/L ALT (0-33) U/L Alkaline Phosphata se (35-105) IU/L Troponin T Baselin e 8 (0-10) ng/L Troponin T 120 Min [place] 9.16 (0-10) ng/L Delta Troponin T 1.16 (0-10) ABS# Total Protein (6.6-8.7) g/dL Albumin (3.5-5.2) g/dL Globulin (1.3-4.6) g/dL Lipase (13-60) U/L Urine Color (Yellow) Urine Appearance (CLEAR) Urine pH (5-7) Ur Specific Gravit y (1.005-1.030) Urine Protein (Negative) Urine Glucose (UA) (Normal) Urine Ketones (Negative) Urine Blood (Negative) Urine Nitrate (Negative) Urine Bilirubin (NEGATIVE) Urine Urobilinogen (Negative) mg/dL Ur Leukocyte Bethany ase (Negative) Discharge Plan Discharge Patient Disposition: Home, Self-Care Clinical Impression: Left kidney mass Abdominal pain Qualifiers: Abdominal location: left upper quadrant Qualified Code(s): R10.12 - Left upper quadrant pain Condition: Stable Prescriptions: New tramadol 50 mg tablet 50 mg PO Q8H PRN (Reason: pain) Qty: 20 RF: 0 No Action levothyroxine 50 mcg capsule 50 mcg PO DAILY Qty: 30 RF: 11 fluticasone propionate [Allergy Relief (fluticasone)] 50 mcg/actuation spray,suspension 2 spray INTRANASAL DAILY RF: 0 buspirone 7.5 mg tablet 7.5 mg PO BID PRN (Reason: Anxiety) RF: 0 cetirizine [Allergy Relief (cetirizine)] 10 mg tablet 10 mg PO DAILY PRN (Reason: Allergy Symptoms) RF: 0 hydrochlorothiazide 25 mg tablet 25 mg PO DAILY RF: 0 naproxen 500 mg tablet 500 mg PO BID PRN (Reason: Pain) RF: 0 Symbicort 160-4.5 mcg/actuation HFA aerosol inhaler 2 puff INHALATION Q12H RF: 0 nystatin 100,000 unit/gram cream 1 applic TOPICAL BID RF: 0 albuterol sulfate 2.5 mg /3 mL (0.083 %) solution for nebulization 2.5 mg INHALATION BID RF: 0 ibuprofen 600 mg tablet 600 mg PO TID RF: 0 oxycodone-acetaminophen [Percocet] 5-325 mg tablet 1 tab PO TID PRN (Reason: pain) 30 Days Qty: 90 RF: 0 oxycodone-acetaminophen [Percocet] 5-325 mg tablet 1 tab PO TID PRN (Reason: pain) 30 Days Qty: 90 RF: 0 triamcinolone acetonide 0.1 % cream 1 applic TOPICAL DAILY Qty: 30 RF: 0 hydroxyzine HCl 10 mg tablet 10 mg PO Q6H PRN (Reason: anxiety) 15 Days Qty: 30 RF: 0 albuterol sulfate [Ventolin HFA] 90 mcg/actuation HFA aerosol inhaler See Rx Instructions .ROUTE .COMPLEX Qty: 36 RF: 0 atorvastatin 20 mg tablet 20 mg PO DAILY RF: 0 ergocalciferol (vitamin D2) 1,250 mcg (50,000 unit) capsule 1,250 mcg PO Q7D RF: 0 lactulose 20 gram/30 mL solution 20 gm PO BID PRN (Reason: Constipation) RF: 0 meclizine 12.5 mg Tablet 12.5 mg PO BID PRN (Reason: Dizziness) RF: 0 vitamin B complex Tablet 1 tab PO DAILY Qty: 30 RF: 0 Discharge Orders: Discharge Order (Routine); Ordered 08/01/19 Ordered By: Sri Nicholas Referrals: Kristie Boswell FNP [Primary Care Provider] - Rich Ware MD [Hospitalist] - 1-3 days Discharge Diet: Advance as tolerated Discharge Activity: Resume usual activity Patient Instructions: Abdominal Pain (ED) Discharge Date/Time: 08/01/19 21:24 Coding Level of Care Code ED [facility] Attendant for Chg Fwd Exam Comprehensive Documented by User: Sri Nicholas MD 08/01/19 21:29 HPI - Abdominal Pain General: Chief Complaint: Abdominal Pain Stated Complaint: ABDOMINAL PAIN Time Seen by Provider: 08/01/19 15:58 [facility] ED PFSH: Medical History Acute pain of left knee Anxiety Chronic sinusitis COPD (chronic obstructive pulmonary disease) DDD (degenerative disc disease), lumbar Dementia Depression Encounter for long-term opiate analgesic use Facet joint disease GERD (gastroesophageal reflux disease) Hyperlipidemia Hypertension Hypothyroidism Insomnia Lumbar foraminal stenosis Other intervertebral disc degeneration, lumbar region Pain in right hip Surgical History History of surgery on upper extremity Family History Mother Hypertension Father Hypertension Social History Smoking and tobacco status: never smoked Second hand smoke exposure: No Alcohol intake: never History of recent travel: No Course Vital Signs: Vital signs: Vital Signs Temperature 97.7 F 08/01/19 20:49 Pulse Rate 77 08/01/19 20:59 Respiratory Rate 18 08/01/19 20:59 Blood Pressure 137/65 08/01/19 20:59 Pulse Oximetry 99 08/01/19 20:59 MDM - Abdominal Pain MDM Narrative: Medical decision making narrative: Patient presents here with abdominal chest pain. Patient did find a kidney mass on CT scan no other acute findings were found. Patient has no pulmonary embolism and troponins are normal. Patient is stable for discharge will place her on pain meds and she is to follow-up with Dr. Ware. She is return if worsening. Lab Data: Labs: Lab Results 08/01/19 08/01/19 08/01/19 Range/Units 15:48 16:35 16:35 WBC 7.5 (4.0-10.0) 10^3/ uL RBC 2.40 L (4.1-5.3) 10^6/u L Hgb 9.4 L (11.5-15.3) g/dL Hct 28.3 L (37.0-47.0) % MCV 117.9 H (81-99) fL MCH 39.2 H (28.0-34.0) pg MCHC 33.2 (30.0-36.0) g/dL RDW 14.8 (12.1-15.1) % Plt Count 274 (130-400) 10^3/c mm MPV 10.2 (7.4-10.4) fL Neut % (Auto) 62.6 % Lymph % (Auto) 25.5 % Branch % (Auto) 9.8 % Eos % (Auto) 1.7 % Baso % (Auto) 0.1 % Neut # (Auto) 4.7 (1.8-7.7) 10^3/u L Lymph # (Auto) 1.9 (0.8-4.8) 10^3/u L Branch # (Auto) 0.7 (0.2-0.9) 10^3/u L Eos # (Auto) 0.1 (0.0-0.8) 10^3/u L Baso # (Auto) 0.0 (0.0-0.1) 10^3/u L Nucleated RBC % (a uto) 0 % Nucleated RBCs # 0.0 /100WBC Sodium 141 (136-145) mmol/L Potassium 3.3 L (3.5-5.1) mmol/L Chloride 107 (98-107) mmol/L Carbon Dioxide 21 L (22-29) mmol/L Anion Gap 16.3 (5-19) BUN 10 (8-23) mg/dL Creatinine 1.0 H (0.5-0.9) mg/dL GFR Calculation 55.5 L (90-130) mL/min Glucose 136 H (65-115) mg/dL Calculated Osmolal ity 290 (285-295) mOsm/k g Lactate (0.5-2.2) mmol/L Calcium 8.2 L (8.5-10.5) mg/dL Total Bilirubin 0.9 (0.15-1.2) mg/dL AST 13 (0-32) U/L ALT 12 (0-33) U/L Alkaline Phosphata se 61 (35-105) IU/L Troponin T Baselin e (0-10) ng/L Troponin T 120 Min [place] (0-10) ng/L Delta Troponin T (0-10) ABS# Total Protein 5.8 L (6.6-8.7) g/dL Albumin 3.9 (3.5-5.2) g/dL Globulin 1.9 (1.3-4.6) g/dL Lipase 16 (13-60) U/L Urine Color Marilynn (Yellow) Urine Appearance Clear (CLEAR) Urine pH 5 (5-7) Ur Specific Gravit y 1.020 (1.005-1.030) Urine Protein Neg (Negative) Urine Glucose (UA) Norm (Normal) Urine Ketones Negative (Negative) Urine Blood Neg (Negative) Urine Nitrate Negative (Negative) Urine Bilirubin Neg (NEGATIVE) Urine Urobilinogen 4 H (Negative) mg/dL Ur Leukocyte Bethany ase Negative (Negative) 08/01/19 08/01/19 08/01/19 Range/Units 16:35 16:35 19:08 WBC (4.0-10.0) 10^3/ uL RBC (4.1-5.3) 10^6/u L Hgb (11.5-15.3) g/dL Hct (37.0-47.0) % MCV (81-99) fL MCH (28.0-34.0) pg MCHC (30.0-36.0) g/dL RDW (12.1-15.1) % Plt Count (130-400) 10^3/c mm MPV (7.4-10.4) fL Neut % (Auto) % Lymph % (Auto) % Branch % (Auto) % Eos % (Auto) % Baso % (Auto) % Neut # (Auto) (1.8-7.7) 10^3/u L Lymph # (Auto) (0.8-4.8) 10^3/u L Branch # (Auto) (0.2-0.9) 10^3/u L Eos # (Auto) (0.0-0.8) 10^3/u L Baso # (Auto) (0.0-0.1) 10^3/u L Nucleated RBC % (a uto) % Nucleated RBCs # /100WBC Sodium (136-145) mmol/L Potassium (3.5-5.1) mmol/L Chloride (98-107) mmol/L Carbon Dioxide (22-29) mmol/L Anion Gap (5-19) BUN (8-23) mg/dL Creatinine (0.5-0.9) mg/dL GFR Calculation (90-130) mL/min Glucose (65-115) mg/dL Calculated Osmolal ity (285-295) mOsm/k g Lactate 2.6 H (0.5-2.2) mmol/L Calcium (8.5-10.5) mg/dL Total Bilirubin (0.15-1.2) mg/dL AST (0-32) U/L ALT (0-33) U/L Alkaline Phosphata se (35-105) IU/L Troponin T Baselin e 8 (0-10) ng/L Troponin T 120 Min [place] 9.16 (0-10) ng/L Delta Troponin T 1.16 (0-10) ABS# Total Protein (6.6-8.7) g/dL Albumin (3.5-5.2) g/dL Globulin (1.3-4.6) g/dL Lipase (13-60) U/L Urine Color (Yellow) Urine Appearance (CLEAR) Urine pH (5-7) Ur Specific Gravit y (1.005-1.030) Urine Protein (Negative) Urine Glucose (UA) (Normal) Urine Ketones (Negative) Urine Blood (Negative) Urine Nitrate (Negative) Urine Bilirubin (NEGATIVE) Urine Urobilinogen (Negative) mg/dL Ur Leukocyte Bethany ase (Negative) Imaging Data ^: CT Chest: Radiologist's impression: [address] [address] [address] Scan Report Signed Patient: Georgiana Mayo Unit #: [id number] : 1950 Age/Sex: 68 / F ADM Date: 08/01/19 Loc: ER Room/Bed: Attending Dr: Ordering Provider/Ordering MD: Georgiana Holloway MD Date of Service: 08/01/19 Procedure(s): CT chest abd pel w con* Accession Number(s): [id number] Report Number: [id number] PROCEDURE INFORMATION: Exam: CT Chest With Contrast Exam date and time: 08/01/2019 6:15 PM Age: 68 years old Clinical indication: Abdominal pain; Epigastric; Prior surgery; Surgery type: Bladder; Additional info: Epigastric pain TECHNIQUE: Imaging protocol: Computed tomography of the chest with intravenous contrast. Radiation optimization: All CT scans at this facility use at least one of these dose optimization techniques: automated exposure control; mA and/or kV adjustment per patient size (includes targeted exams where dose is matched to clinical indication); or iterative reconstruction. Contrast material: VISI; Contrast volume: 95 ml; Contrast route: LT FOREARM; COMPARISON: CT chest wo con [id number] 03/28/2013 8:52 AM RADIATION DOSE METRICS: Total DLP: 2142.74 mGy-cm FINDINGS: Thyroid: The thyroid gland is heterogeneous with several calcifications. There is a 1.3 cm heterogeneous nodule lower right thyroid lobe. This is not definitely visualized on the prior exam mostly due to technique. Lungs: There is subpleural atelectasis of the dependent portions of the lungs. There are soft tissue density pulmonary nodules including a 7.5 mm nodule right lower lobe image 49 that previously measured 6 mm. There is a subpleural 7 mm nodule right lower lobe image 51. Previously this nodule measured 5 mm. Pleural space: Unremarkable. No pneumothorax. No pleural effusion. Heart: Unremarkable. No cardiomegaly. No pericardial effusion. Mediastinum: A small hiatal hernia is present. Aorta: Unremarkable. No aortic aneurysm. Lymph nodes: Unremarkable. No enlarged lymph nodes. Bones/joints: Unremarkable. No acute fracture. Soft tissues: Unremarkable. Other findings: There are calcified granulomas. No new pulmonary nodule. Old granulomatous changes. IMPRESSION: 1. 1.3 cm heterogeneous nodule lower right thyroid lobe. No follow-up is necessary. 2. Enlarging right basilar pulmonary nodules. These of increased compared to the prior exam of March 28, 2013. No new pulmonary nodules. The lungs are otherwise clear. COMMENTS: Consistent with the [employer]'s Incidental Findings Committee white paper (J Am Padmini Radiol 2015): In patients aged 35 years and older with an incidental thyroid nodule equal to or greater than 1.[address], MRI or extrathyroidal US, further evaluation with dedicated thyroid US is recommended for patients with normal life expectancy and without comorbidities. For smaller nodules without suspicious features, no further evaluation or follow up is recommended. PROCEDURE INFORMATION: Exam: CT Abdomen And Pelvis With Contrast Exam date and time: 08/01/2019 6:15 PM Age: 68 years old Clinical indication: Abdominal pain; Epigastric; Prior surgery; Surgery type: Bladder; Additional info: Epigastric pain TECHNIQUE: Imaging protocol: Computed tomography of the abdomen and pelvis with intravenous contrast. Radiation optimization: All CT scans at this facility use at least one of these dose optimization techniques: automated exposure control; mA and/or kV adjustment per patient size (includes targeted exams where dose is matched to clinical indication); or iterative reconstruction. Contrast material: VISI; Contrast volume: 95 ml; Contrast route: LT FOREARM; COMPARISON: CT chest con [id number] 03/28/2013 8:52 AM RADIATION DOSE METRICS: Total DLP: 2142.74 mGy-cm FINDINGS: Liver: Unremarkable.No mass. Gallbladder and bile ducts: Normal. No calcified stones. No ductal dilation. Pancreas: Normal. No ductal dilation. Spleen: There is a probable subcentimeter hemangioma in the spleen. Adrenals: Normal. No mass. Kidneys and ureters: There is a 1.5 cm mildly hyperdense exophytic nodule upper pole left kidney this increase in the prior exam where it measured 1 cm. Hounsfield unit measurement is 39 and this is not a cyst by CT criteria. There is no evidence of hydronephrosis. There is no evidence of renal calcifications. There is an exophytic simple cyst lower pole left kidney measuring 1.5 cm in size Stomach and bowel: There is no evidence of intestinal perforation or obstruction. Mild diverticulosis is present in the distal colon. There is no evidence of colitis/diverticulitis. The stomach is collapsed but otherwise unremarkable in appearance. Appendix: A normal appendix is identified. Intraperitoneal space: Unremarkable. No free air. No significant fluid collection. Vasculature: Unremarkable.No abdominal aortic aneurysm. Lymph nodes: Unremarkable.No enlarged lymph nodes. Bladder: Unremarkable as visualized. Reproductive: Unremarkable as visualized. Bones/joints: Osteopenia and moderate degenerative changes in the spine are noted. Soft tissues: There is a fat-containing umbilical hernia. CT/CT chest abd pel w con* IMPRESSION: 1. Enlarging indeterminate lesion upper pole left kidney.Recommend MR without and with contrast or CT without and with contrast. MR is preferred for masses under 1.5 cm. Also identified is a complex cyst lower pole left kidney. 2. No bowel thickening or inflammatory changes. No obstructing calculi or hydronephrosis. No acute abnormality in the abdomen or pelvis. EKG Data ^: EKG 1: Attestation: I personally reviewed and interpreted this EKG as follows: EKG interpretation date: 08/01/19 EKG interpretation time: 18:21 Interpretation: nsr hr [address] changes qrs 76 qtc 415 Discharge Plan Discharge Patient Disposition: Home, Self-Care Clinical Impression: Left kidney mass Abdominal pain Qualifiers: Abdominal location: left upper quadrant Qualified Code(s): R10.12 - Left upper quadrant pain Condition: Stable Prescriptions: New tramadol 50 mg tablet 50 mg PO Q8H PRN (Reason: pain) Qty: 20 RF: 0 No Action levothyroxine 50 mcg capsule 50 mcg PO DAILY Qty: 30 RF: 11 fluticasone propionate [Allergy Relief (fluticasone)] 50 mcg/actuation spray,suspension 2 spray INTRANASAL DAILY RF: 0 buspirone 7.5 mg tablet 7.5 mg PO BID PRN (Reason: Anxiety) RF: 0 cetirizine [Allergy Relief (cetirizine)] 10 mg tablet 10 mg PO DAILY PRN (Reason: Allergy Symptoms) RF: 0 hydrochlorothiazide 25 mg tablet 25 mg PO DAILY RF: 0 naproxen 500 mg tablet 500 mg PO BID PRN (Reason: Pain) RF: 0 Symbicort 160-4.5 mcg/actuation HFA aerosol inhaler 2 puff INHALATION Q12H RF: 0 nystatin 100,000 unit/gram cream 1 applic TOPICAL BID RF: 0 albuterol sulfate 2.5 mg /3 mL (0.083 %) solution for nebulization 2.5 mg INHALATION BID RF: 0 ibuprofen 600 mg tablet 600 mg PO TID RF: 0 oxycodone-acetaminophen [Percocet] 5-325 mg tablet 1 tab PO TID PRN (Reason: pain) 30 Days Qty: 90 RF: 0 oxycodone-acetaminophen [Percocet] 5-325 mg tablet 1 tab PO TID PRN (Reason: pain) 30 Days Qty: 90 RF: 0 triamcinolone acetonide 0.1 % cream 1 applic TOPICAL DAILY Qty: 30 RF: 0 hydroxyzine HCl 10 mg tablet 10 mg PO Q6H PRN (Reason: anxiety) 15 Days Qty: 30 RF: 0 albuterol sulfate [Ventolin HFA] 90 mcg/actuation HFA aerosol inhaler See Rx Instructions .ROUTE .COMPLEX Qty: 36 RF: 0 atorvastatin 20 mg tablet 20 mg PO DAILY RF: 0 ergocalciferol (vitamin D2) 1,250 mcg (50,000 unit) capsule 1,250 mcg PO Q7D RF: 0 lactulose 20 gram/30 mL solution 20 gm PO BID PRN (Reason: Constipation) RF: 0 meclizine 12.5 mg Tablet 12.5 mg PO BID PRN (Reason: Dizziness) RF: 0 vitamin B complex Tablet 1 tab PO DAILY Qty: 30 RF: 0 Discharge Orders: Discharge Order (Routine); Ordered 08/01/19 Ordered By: Sri Nicholas Referrals: Kristie Boswell FNP [Primary Care Provider] - Rich Ware MD [Hospitalist] - 1-3 days Discharge Diet: Advance as tolerated Discharge Activity: Resume usual activity Patient Instructions: Abdominal Pain (ED) Discharge Date/Time: 08/01/19 21:24 Coding Level of Care Code ED [facility] Attendant for Chg Fwd Exam Comprehensive
[2019-08-01 16:46] LABS: Basophils % 0.1 %; Eosinophils # 0.1 10^3/uL (0.0-0.8); Eosinophils % 1.7 %; Hematocrit 28.3 % (37.0-47.0); Hemoglobin 9.4 g/dL (11.5-15.3); Lymphocytes # 1.9 10^3/uL (0.8-4.8); Lymphocytes % 25.5 %; Mean Corpuscular HGB Conc 33.2 g/dL (30.0-36.0); Mean Corpuscular Hemoglobin 39.2 pg (28.0-34.0); Mean Corpuscular Volume 117.9 fL (81-99); Mean Platelet Volume 10.2 fL (7.4-10.4); Monocytes # 0.7 10^3/uL (0.2-0.9); Monocytes % 9.8 %; Neutrophils # 4.7 10^3/uL (1.8-7.7); Neutrophils % 62.6 %; Nucleated Red Blood Cells % 0 %; Platelet Count 274 10^3/cmm (130-400); Red Cell Distribution Width 14.8 % (12.1-15.1); White Blood Count 7.5 10^3/uL (4.0-10.0)
[2019-08-01 17:47] LABS: Lactate (Lactic Acid level) 2.6 mmol/L (0.5-2.2); Troponin(5th) Baseline 8 ng/L (0-10)
[2019-08-01 17:48] LABS: Alanine Aminotransferase 12 U/L (0-33); Albumin Level 3.9 g/dL (3.5-5.2); Alkaline Phosphatase 61 IU/L (35-105); Anion Gap 16.3 (5-19); Aspartate Amino Transferase 13 U/L (0-32); Blood Urea Nitrogen 10 mg/dL (8-23); Calcium 8.2 mg/dL (8.5-10.5); Carbon Dioxide 21 mmol/L (22-29); Chloride 107 mmol/L (98-107); Globulin 1.9 g/dL (1.3-4.6); Glomerular Filtration Rate 55.5 mL/min (90-130); Glucose 136 mg/dL (65-115); Lipase 16 U/L (13-60); Osmolality Calculated 290 mOsm/kg (285-295); Potassium 3.3 mmol/L (3.5-5.1); Sodium 141 mmol/L (136-145); Total Bilirubin 0.9 mg/dL (0.15-1.2); Total Protein 5.8 g/dL (6.6-8.7)
--- NOTE | 2019-08-01 17:56 | CTR_ITS ---
PROCEDURE INFORMATION: Exam: CT Chest With Contrast Exam date and time: 08/01/2019 6:15 PM Age: 68 years old Clinical indication: Abdominal pain; Epigastric; Prior surgery; Surgery type: Bladder; Additional info: Epigastric pain TECHNIQUE: Imaging protocol: Computed tomography of the chest with intravenous contrast. Radiation optimization: All CT scans at this facility use at least one of these dose optimization techniques: automated exposure control; mA and/or kV adjustment per patient size (includes targeted exams where dose is matched to clinical indication); or iterative reconstruction. Contrast material: VISI; Contrast volume: 95 ml; Contrast route: LT FOREARM; COMPARISON: CT chest wo con [id number] 03/28/2013 8:52 AM RADIATION DOSE METRICS: Total DLP: 2142.74 mGy-cm FINDINGS: Thyroid: The thyroid gland is heterogeneous with several calcifications. There is a 1.3 cm heterogeneous nodule lower right thyroid lobe. This is not definitely visualized on the prior exam mostly due to technique. Lungs: There is subpleural atelectasis of the dependent portions of the lungs. There are soft tissue density pulmonary nodules including a 7.5 mm nodule right lower lobe image 49 that previously measured 6 mm. There is a subpleural 7 mm nodule right lower lobe image 51. Previously this nodule measured 5 mm. Pleural space: Unremarkable. No pneumothorax. No pleural effusion. Heart: Unremarkable. No cardiomegaly. No pericardial effusion. Mediastinum: A small hiatal hernia is present. Aorta: Unremarkable. No aortic aneurysm. Lymph nodes: Unremarkable. No enlarged lymph nodes. Bones/joints: Unremarkable. No acute fracture. Soft tissues: Unremarkable. Other findings: There are calcified granulomas. No new pulmonary nodule. Old granulomatous changes. IMPRESSION: 1. 1.3 cm heterogeneous nodule lower right thyroid lobe. No follow-up is necessary. 2. Enlarging right basilar pulmonary nodules. These of increased compared to the prior exam of March 28, 2013. No new pulmonary nodules. The lungs are otherwise clear. COMMENTS: Consistent with the [employer]'s Incidental Findings Committee white paper (J Am Padmini Radiol 2015): In patients aged 35 years and older with an incidental thyroid nodule equal to or greater than 1.[address], MRI or extrathyroidal US, further evaluation with dedicated thyroid US is recommended for patients with normal life expectancy and without comorbidities. For smaller nodules without suspicious features, no further evaluation or follow up is recommended. PROCEDURE INFORMATION: Exam: CT Abdomen And Pelvis With Contrast Exam date and time: 08/01/2019 6:15 PM Age: 68 years old Clinical indication: Abdominal pain; Epigastric; Prior surgery; Surgery type: Bladder; Additional info: Epigastric pain TECHNIQUE: Imaging protocol: Computed tomography of the abdomen and pelvis with intravenous contrast. Radiation optimization: All CT scans at this facility use at least one of these dose optimization techniques: automated exposure control; mA and/or kV adjustment per patient size (includes targeted exams where dose is matched to clinical indication); or iterative reconstruction. Contrast material: VISI; Contrast volume: 95 ml; Contrast route: LT FOREARM; COMPARISON: CT chest wo con [id number] 03/28/2013 8:52 AM RADIATION DOSE METRICS: Total DLP: 2142.74 mGy-cm FINDINGS: Liver: Unremarkable.No mass. Gallbladder and bile ducts: Normal. No calcified stones. No ductal dilation. Pancreas: Normal. No ductal dilation. Spleen: There is a probable subcentimeter hemangioma in the spleen. Adrenals: Normal. No mass. Kidneys and ureters: There is a 1.5 cm mildly hyperdense exophytic nodule upper pole left kidney this increase in the prior exam where it measured 1 cm. Hounsfield unit measurement is 39 and this is not a cyst by CT criteria. There is no evidence of hydronephrosis. There is no evidence of renal calcifications. There is an exophytic simple cyst lower pole left kidney measuring 1.5 cm in size Stomach and bowel: There is no evidence of intestinal perforation or obstruction. Mild diverticulosis is present in the distal colon. There is no evidence of colitis/diverticulitis. The stomach is collapsed but otherwise unremarkable in appearance. Appendix: A normal appendix is identified. Intraperitoneal space: Unremarkable. No free air. No significant fluid collection. Vasculature: Unremarkable.No abdominal aortic aneurysm. Lymph nodes: Unremarkable.No enlarged lymph nodes. Bladder: Unremarkable as visualized. Reproductive: Unremarkable as visualized. Bones/joints: Osteopenia and moderate degenerative changes in the spine are noted. Soft tissues: There is a fat-containing umbilical hernia. CT/CT chest abd pel w con* IMPRESSION: 1. Enlarging indeterminate lesion upper pole left kidney.Recommend MR without and with contrast or CT without and with contrast. MR is preferred for masses under 1.5 cm. Also identified is a complex cyst lower pole left kidney. 2. No bowel thickening or inflammatory changes. No obstructing calculi or hydronephrosis. No acute abnormality in the abdomen or pelvis. Radiation Dose CTDIVOL = (mGy): DLP = 2142.74~2142.74 (mGy-cm)
[2019-08-01] MEDS: cefTRIAXone 2,000 MG in sodium chloride 0.9% (plus) 50 ML 100 MG IV (18:11)
--- NOTE | 2019-08-01 18:18 | ECG_ITS ---
Measurements Intervals [place] Rate: 62 P: -10 [place]: 162 QRS: 11 QRSD: 76 T: -48 QT: 409 QTc: [address] DEVIATION AND MODERATE T-WAVE ABNORMALITY, CONSIDER LATERAL ISCHEMIA [-0.1+ mV T WAVE IN I/aVL/V5/V6] ST DEVIATION AND MODERATE T-WAVE ABNORMALITY, CONSIDER INFERIOR ISCHEMIA [-0.1+ mV T WAVE IN II/aVF] Compared to ECG 07/25/2019 20:13:52 Possible ischemia now present T-wave abnormality still present Electronically Signed On 08-02-2019 8:09:34 CDT by Jemma Aldrich M.D. [email or web address]
--- NOTE | 2019-08-01 18:18 | PC.NURSE ---
EKG done at 1815 and shown to ER doctor
[2019-08-01] MEDS: iodixanol 320 mg/mL 100mL Btl 95 ML IV (18:42)
[2019-08-01] MEDS: azithromycin 500 MG in sodium chloride 0.9% 250 ML 250 MG IV (19:12)
[2019-08-01 19:43] LABS: Troponin 5 2HR 9.16 ng/L (0-10); Troponin 5 2HR Delta 1.16 ABS# (0-10)
[2019-08-01] MEDS: HYDROmorphone 1 mg/mL INJ 1 mL IVP (20:28)
--- NOTE | 2019-08-04 11:09 | DCPLANNER ---
vascular manager had message to schedule a follow up appointment for patient with Dr. Ware for a kidney mass. vascular manager called Robina Roach documentation coordinator for oncology. Referral was given and follow up will be scheduled.
--- NOTE | 2019-08-13 15:43 | DCPLANNER ---
Patient had a follow up appointment scheduled for 08.08.[address] Ware, patient did attend the appointment.
== END 2019-08-01 21:24 | disposition home or self-care (01) ==
PROVIDERS: Emergency Medicine; Emergency Provider Emergency Medicine; PCP Nurse Practitioner
DX: N28.89 Other specified disorders of kidney and ureter (principal); R10.12 Left upper quadrant pain; J44.9 Chronic obstructive pulmonary disease, unspecified; F03.90 Unspecified dementia, unspecified severity, without behavioral disturbance, psychotic disturbance, mood disturbance, and anxiety; E78.5 Hyperlipidemia, unspecified; I10 Essential (primary) hypertension
CPT/HCPCS: 12345; 36415; 71045; 71260; 74177; 80053; 81003; 83605; 83690; 84484; 85025; 93005; 96365; 96367; 96375; 99283; 99284; J0456; J0696; J1170; J7050; Q9967

== ENCOUNTER 2019-08-08 09:11 | Outpatient (CLI) | payer MEDICARE, MEDICAID, SELFPAY ==
[2019-08-08 11:51] LABS: Basophils # 0.1 10^3/uL (0.0-0.1); Basophils % 0.8 %; Eosinophils # 0.1 10^3/uL (0.0-0.8); Eosinophils % 1.5 %; Hematocrit 34.1 % (37.0-47.0); Lymphocytes # 1.8 10^3/uL (0.8-4.8); Lymphocytes % 21.1 %; Mean Corpuscular HGB Conc 32.3 g/dL (30.0-36.0); Mean Corpuscular Hemoglobin 35.4 pg (28.0-34.0); Mean Corpuscular Volume 109.6 fL (81-99); Monocytes # 0.5 10^3/uL (0.2-0.9); Monocytes % 6.2 %; Nucleated Red Blood Cells % 0 %; Platelet Count 513 10^3/cmm (130-400); Red Blood Count 3.11 10^6/uL (4.1-5.3); Red Cell Distribution Width 18.2 % (12.1-15.1); White Blood Count 8.6 10^3/uL (4.0-10.0)
[2019-08-08 11:53] LABS: LAB Peripheral Smear Sent for Review
[2019-08-08 12:29] LABS: Folate Level 7.1 ng/mL (4.8-37.3)
[2019-08-08 12:36] LABS: Erythrocyte Sedimentation Rate 26 mm/hr (0-15); Homocysteine 41.09
[2019-08-08 12:37] LABS: Alanine Aminotransferase 13 U/L (0-33); Albumin Level 3.6 g/dL (3.5-5.2); Alkaline Phosphatase 69 IU/L (35-105); Anion Gap 16.2 (5-19); Aspartate Amino Transferase 16 U/L (0-32); Blood Urea Nitrogen 5 mg/dL (8-23); Carbon Dioxide 25 mmol/L (22-29); Chloride 101 mmol/L (98-107); Ferritin 165 ng/mL (15-150); Globulin 3.3 g/dL (1.3-4.6); Glomerular Filtration Rate 83.7 mL/min (90-130); Glucose 136 mg/dL (65-115); Iron 62 ug/dL (37-145); Lactate Dehydrogenase 236 U/L (135-214); Osmolality Calculated 286 mOsm/kg (285-295); Potassium 3.2 mmol/L (3.5-5.1); Sodium 139 mmol/L (136-145); Total Bilirubin 1.4 mg/dL (0.15-1.2); Total Iron Binding Capacity 206 mcg/dl; Total Protein 6.9 g/dL (6.6-8.7); Unsaturated Iron Binding 144 ug/dL (112-347)
[2019-08-08 12:52] LABS: Vitamin B12 613 pg/mL (232-1245)
[2019-08-09 08:16] LABS: PROTEIN, TOTAL 6.3 g/dL (6.1-8.1)
--- NOTE | 2019-08-09 14:00 | ONC CON_ITS ---
Dr. Ware New Patient Note Patient: Georgiana Mayo Unit #: [id number]: 1950 Dicatated By: Rich Ware M.D.Date of Visit: Aug 08, 2019 Onc MED New Patient/Consult Referring Physician: Marlena Blankenship Chief Complaint: Anemia. History of Present Illness: This is a 68 year-old woman with moderately severe anemia. 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 She also carries a diagnosis of COPD, though she is a non-smoker and in the past she has had normal pulmonary function studies. Her records also indicate a history of congestive heart failure, though there does not appear to be any supporting documentation of it. On 07/04/2019 she was seen in the emergency room with numbness/tingling in both arms and feet. She was given a diagnosis of anxiety with acute hyperventilation. Her laboratory studies at that time showed a mild anemia with hemoglobin 10.4 g and hematocrit 30.5%. The red cell indices were significantly macrocytic with MCV 122 and MCH 41. The white blood cell count was normal at 5900 and the platelet count was normal at 166,000. Her CT of the cervical spine was unrevealing. CT of the lumbar spine showed mild to moderate degenerative changes with a mild central disc bulge at L3-L4. There was retrolisthesis with spurring off the the posterior body of L3. There was no spnal canal stenosis reported. She was then seen in the emergency room again on 07/25/2019 complaining that she was unable to stand without having pain in the low back and right hip. Xrays of the lumbar spine and right hip were unrevealing. CBC showed further decline in the hemoglobin to 8.7 g with hematocrit 25%. The WBC was mildly decreased at 3,700. Platelet count was also mildly decreased at 114,000. She had further evaluation with contrast-enhanced CT scans of the chest, abdomen, and pelvis on 08/01/2019. The chest reported a 1.3 cm heterogeneous nodule in the lower right thyroid lobe. Also noted was a 7.5 mm right lower lobe pulmonary nodule, increased from 6 mm on the previous study from 2013. A subpleural 7 mm right lower lobe nodule had previously measured 5 mm. There were no new pulmonary nodules noted and there was no mediastinal or hilar adenopathy noted. The abdomen/pelvis showed a 1.5 cm mildly hyperdense exophytic nodule involving the upper pole of the left kidney, increased from 1 cm on the prior study. A simple cyst in the lower pole left kidney measured 1.5 cm. There was evidence of osteopenia with moderate degenerative changes in the spine. There were no other significant findings in the abdomen or pelvis. Her repeat CBC at that time showed hemoglobin 9.4 g with white blood cell count 7500 and platelet count 274,000. Comprehensive metabolic profile was unremarkable except for slightly low potassium at 3.3 mmol/L. She indicates that she is not doing well. She continues to have weakness in her legs and she has not been able to walk without being assisted. She is having to use walker or wheelchair at home. She reports having numbness/tingling in her arms and legs. Her ECOG score is 3. She has good appetite, but she has had significant weight loss, in the range of 25 pounds. She does not have fever or night sweats. She sometimes has a cough up old phlegm, but that has been going on for a long time. She has had episodes when she has trouble breathing. She complains of having a discomfort in her upper abdomen which puts pressure on her chest. She does not complain of nausea, she says she is not having heartburn or acid reflux. She has chronic constipation. She has frequent urination. She has chronic back pain, but that these seem to be managed adequately with her medication. She does not complain of headache. She has some orthostatic lightheadedness. She sometimes feels like passing out. She has chronic anxiety. She denies having depression. She also has chronic insomnia. Past Medical History: Her medical history includes chronic anxiety, chronic insomnia, chronic obstructive pulmonary disease, congestive heart failure, degenerative disease of the spine, depression, gastroesophageal reflux disease, hyperlipidemia, hypertension, and hypothyroidism. Past Surgical History: Her surgical/procedural history includes lipoma excision in 2016 and D&C with anterior colporrhaphy and bladder tie up in 2004. Medications: B Complex 1 Tablet Oral daily, Budesonide-Formoterol Fumarate 2 Puff(s) (of 160-4.5 mcg/act) Aerosol Inhalation b.i.d., Fluticasone Propionate 2 Tempe(s) (of 50 mcg/act) Suspension Nasal daily, hydroCHLOROthiazide 1 Tablet (of 25 mg) Oral daily, Ibuprofen 1 Tablet (of 600 mg) Oral t.i.d. PRN, Levothyroxine Sodium 1 Tablet (of 50 mcg) Oral daily, oxyCODONE-Acetaminophen 1 Tablet (of 5-325 mg) Oral t.i.d. PRN, traMADol HCl 1 Tablet (of 50 mg) Oral q 8 hours PRN, Triamcinolone Acetonide 1 (0.1 %) Cream Topical daily, Ventolin HFA 1 Puff(s) (of 108 (90 base) mcg/act) Aerosol, solution Inhalation q 4 hours PRN, Vitamin D3 1 Tablet ([place] [address]46 Units) Oral q 7 days Allergies: HYDROcodone-Acetaminophen Social History: Ms. Mayo is . She is a non-smoker. She does not drink alcohol. Family History: Ms. De La Rosas mother at age 43: myocardial infarction. Ms. De La Rosas father at age 75: myocardial infarction. Mother of heart attack at age 43. Father age 75 with atherosclerotic cardiovascular disease. One brother has coronary artery disease. Another brother in a motor vehicle accident. One sister is in good health. Review Of Symptoms: Constitutional - She is generally not feeling good. Her energy was good prior to having a fall. She does not ambulate independently now. She has been using a walker for approximately 1 month. She also uses a wheelchair. Prior to her fall she was independent. Her appetite is poor and weight down significantly. Her normal weight is 240 pounds. No fever, night sweats, or hot flashes. ECOG score is 3, Eyes - She has cataracts in both eyes, ENMT - No sinus congestion/drainage. No mouth sores. No sore throat. She has difficulty swallowing larger pills, Hematologic/Lymphatic - She bruises easily, Respiratory - She has shortness of breath. She has an occasional productive cough. No pleuritic pain or hemoptysis. She is having pressure in her diaphragm, Cardiovascular - No angina pain. No palpitations, Gastrointestinal - No nausea or vomiting. She has discomfort in her upper abdomen that puts pressure on her chest. She does not complain of heartburn or acid reflux. She has chronic constipation. She is using suppositories for it. No blood in the stool or black stools, Genitourinary (F) - No dysuria or hematuria. She has urinary frequency. No urgency or incontinence, Musculoskeletal - She has chronic back that is being managed by , Integumentary - No skin complications, Neurologic - No headaches. She gets dizzy with positional changes. She has numbness and tingling in her hands and feet. She lost sensation in her hands and her feet after her fall, Psychiatric - She has anxiety. No depression. She does not sleep well. Vital Signs: Performed on Aug 08, 2019 09:42: 10, 33.52 (HIGH), 2.08 sq.m, 67.00 in, 97 %, 74 /min, 24 /min, 140/89 mm(hg), 97.6 F (LOW), and 214.0 lbs (HIGH). Physical Examination: Constitutional - She appears generally weak, but not acutely ill, Eyes - Sclerae nonicteric. Conjunctivae clear, ENMT - No lesions noted in the oral cavity, Neck - No mass or thyromegaly, Hematologic/Lymphatic - No cervical, clavicular, or axillary adenopathy, Respiratory - Lungs show slightly coarse breath sounds bilaterally, Cardiovascular - Heart rhythm is regular. There is no murmur, gallop, or rub noted, Breasts - There are no breast masses noted. There is no axillary adenopathy, Abdomen - Soft. There is tenderness in the upper abdomen. Liver and spleen are not enlarged. There is no abdominal mass or ascites noted and there is no inguinal adenopathy, Back/Spine - No spine or CVA tenderness noted, Extremities - No edema. Pedal pulses are palpable bilaterally, Integumentary - No rashes. No suspicious skin lesions noted, Neurologic - No focal neurologic deficits noted. DTR's are 2+ in the upper extremities and not elicited in the lower extremities. Impression: 1. Patient with moderately severe, macrocytic anemia. B12 and/or folate deficiency need to be excluded. The other likely cause would be myelodysplasia. 2. She reports having lower extremity weakness and numbness/tingling in upper and lower extremities. This also could be explained by B12 deficiency. Her other medical illnesses include: 3. Hypertension. 4. Hyperlipidemia. 5. Hypothyroidism. 6. GERD. 7. Degenerative disease of the spine with chronic back pain. 8. She has a history of congestive heart failure, though it does not appear to be well documented. 9. There is also a history of COPD, though she is a non-smoker and her pulmonary function studies in 2014 were essentially normal. 10. Chronic anxiety and history of depression. 11. Chronic insomnia. Plan: The laboratory findings were reviewed with the patient, and I discussed the clinical implications. She will have additional laboratory studies today to include CBC, comprehensive metabolic profile, reticulocyte count, haptoglobin level, LDH level, serum iron studies, B12 and folate levels, and methylmalonic acid and homocystine levels. I also will check sed rate, serum protein electrophoresis, and free light chain assay, I will review the blood smear. She will have further evaluation as indicated. Signed By: Rich Ware M.D. <<Signature on File>>
[2019-08-11 14:17] LABS: KAPPA LIGHT CHAIN, FREE, SERUM 19.2 mg/L (3.3-19.4); KAPPA/LAMBDA LIGHT CHAINS FREE 0.81 (0.26-1.65); LAMBDA LIGHT CHAIN, FREE, SERU 23.7 mg/L (5.7-26.3)
[2019-08-11 15:41] LABS: ALBUMIN 3.3 g/dL (3.8-4.8); ALPHA 1 GLOBULIN 0.4 g/dL (0.2-0.3); ALPHA 2 GLOBULIN 0.8 g/dL (0.5-0.9); BETA 1 GLOBULIN 0.4 g/dL (0.4-0.6); BETA 2 GLOBULIN 0.5 g/dL (0.2-0.5)
[2019-08-13 20:20] LABS: Methylmalonic Acid 3460 nmol/L (87-318)
== END 2019-08-08 09:12 | disposition home or self-care (01) ==
PROVIDERS: PCP Nurse Practitioner; Visit Provider Internal Medicine Medical Oncology
DX: D50.9 Iron deficiency anemia, unspecified (principal); D51.9 Vitamin B12 deficiency anemia, unspecified; D46.9 Myelodysplastic syndrome, unspecified; I10 Essential (primary) hypertension; E78.5 Hyperlipidemia, unspecified; E03.9 Hypothyroidism, unspecified; K21.9 Gastro-esophageal reflux disease without esophagitis; M19.90 Unspecified osteoarthritis, unspecified site; I50.9 Heart failure, unspecified; J44.9 Chronic obstructive pulmonary disease, unspecified; F41.9 Anxiety disorder, unspecified; F32.9 Major depressive disorder, single episode, unspecified; F51.04 Psychophysiologic insomnia; E53.8 Deficiency of other specified B group vitamins
CPT/HCPCS: 80053; 82607; 82728; 82746; 83010; 83090; 83540; 83550; 83615; 83883; 83921; 84155; 84165; 85025; 85045; 85651; 99205

== ENCOUNTER 2019-08-22 12:52 | Emergency (ER) | payer MEDICARE, MEDICAID, SELFPAY ==
[2019-08-22 13:13] VITALS: BP 141/98; PULSE 73; RESP 14; TEMP 36.3; O2SAT 97; BMI 29.7
[2019-08-22 14:49] VITALS: BP 159/95; PULSE 71; RESP 18; O2SAT 99
[2019-08-22 14:52] VITALS: BP 159/95; RESP 17; O2SAT 99
--- NOTE | 2019-08-22 15:13 | CTR_ITS ---
PROCEDURE INFORMATION: Exam: CT Abdomen And Pelvis With Contrast Exam date and time: 08/22/2019 3:22 PM Age: 68 years old Clinical indication: Abdominal pain; Prior surgery; Surgery date: 6+ months; Surgery type: Bladder; Patient HX: C/O epigastric and L sided abd pain w constipation TECHNIQUE: Imaging protocol: Computed tomography of the abdomen and pelvis with intravenous contrast. Radiation optimization: All CT scans at this facility use at least one of these dose optimization techniques: automated exposure control; mA and/or kV adjustment per patient size (includes targeted exams where dose is matched to clinical indication); or iterative reconstruction. Contrast material: OMNI 300; Contrast volume: 95 ml; Contrast route: INTRAVENOUS (IV); COMPARISON: CT chest abd pel w con* 08/01/2019 6:35 PM RADIATION DOSE METRICS: Total DLP (mGy-cm): 1291.13 FINDINGS: Liver: Normal. No mass. Gallbladder and bile ducts: Normal. No calcified stones. No ductal dilation. Pancreas: Normal. No ductal dilation. Spleen: Normal. No splenomegaly. Adrenals: Normal. No mass. Kidneys and ureters: Multiple left renal simple cysts with the largest measuring > 1.0 cm. Stomach and bowel: Unremarkable. No obstruction. No mucosal thickening. Appendix: Normal appendix. Intraperitoneal space: Unremarkable. No free air. No significant fluid collection. Vasculature: Calcification of the abdominal aorta and/or iliac arteries consistent with atherosclerotic vessel disease. One or more calcified pelvic phleboliths. Lymph nodes: Unremarkable. No enlarged lymph nodes. Bladder: Unremarkable as visualized. Reproductive: Unremarkable as visualized. Bones/joints: Moderate L3-L4 central spinal stenosis. Moderate to severe multilevel spine degenerative changes including degenerative disc disease, spondylosis and facet degenerative changes. Soft tissues: Unremarkable. CT/CT abdomen pelvis w con* [id number] IMPRESSION: 1. Moderate L3-L4 central spinal stenosis. 2. No acute findings. COMMENTS: Consistent with the [employer]'s Incidental Findings Committee white paper (J Am Padmini Radiol 2018): Any incidental renal lesion less than 1.0 cm or classified as too small to characterize, or any incidental cystic renal lesion characterized as simple-appearing, is likely benign. No follow-up imaging is recommended for these lesions per consensus recommendations based on imaging criteria. Radiation Dose CTDIVOL = (mGy): DLP = 1291.13 (mGy-cm)
[2019-08-22 15:17] LABS: Basophils # 0.1 10^3/uL (0.0-0.1); Basophils % 0.8 %; Eosinophils # 0.1 10^3/uL (0.0-0.8); Eosinophils % 0.7 %; Hematocrit 39.2 % (37.0-47.0); Hemoglobin 12.4 g/dL (11.5-15.3); Lymphocytes # 2.4 10^3/uL (0.8-4.8); Lymphocytes % 26.7 %; Mean Corpuscular HGB Conc 31.6 g/dL (30.0-36.0); Mean Corpuscular Hemoglobin 30.5 pg (28.0-34.0); Mean Corpuscular Volume 96.3 fL (81-99); Mean Platelet Volume 10.2 fL (7.4-10.4); Monocytes # 0.6 10^3/uL (0.2-0.9); Monocytes % 6.9 %; Neutrophils # 5.8 10^3/uL (1.8-7.7); Neutrophils % 64.8 %; Nucleated Red Blood Cells % 0 %; Platelet Count 315 10^3/cmm (130-400); Red Blood Count 4.07 10^6/uL (4.1-5.3); Red Cell Distribution Width 18.7 % (12.1-15.1); White Blood Count 8.9 10^3/uL (4.0-10.0)
[2019-08-22] MEDS: iodixanol 320 mg/mL 100mL Btl IV (15:36)
[2019-08-22 15:39] LABS: Alanine Aminotransferase 21 U/L (0-33); Albumin Level 4.2 g/dL (3.5-5.2); Alkaline Phosphatase 70 IU/L (35-105); Anion Gap 17.7 (5-19); Aspartate Amino Transferase 22 U/L (0-32); Blood Urea Nitrogen 10 mg/dL (8-23); Calcium 9.9 mg/dL (8.5-10.5); Carbon Dioxide 23 mmol/L (22-29); Chloride 100 mmol/L (98-107); Globulin 2.7 g/dL (1.3-4.6); Glomerular Filtration Rate 83.7 mL/min (90-130); Glucose 118 mg/dL (65-115); Lipase 16 U/L (13-60); Osmolality Calculated 281 mOsm/kg (285-295); Potassium 3.7 mmol/L (3.5-5.1); Sodium 137 mmol/L (136-145); Total Protein 6.9 g/dL (6.6-8.7)
[2019-08-22 16:00] VITALS: RESP 17; O2SAT 98
--- NOTE | 2019-08-22 16:01 | W.ED.ABDPA2 ---
Documented by User: Carola Mcintyre 08/22/19 16:23 HPI - Abdominal Pain General: Chief Complaint: Abdominal Pain Stated Complaint: upper abd pressure Time Seen by Provider: 08/22/19 14:33 Source: patient Mode of arrival: ambulatory Limitations: no limitations History of Present Illness: HPI narrative: Sangita is a nice 68-year-old female who comes in complaining of left upper quadrant abdominal pain. Pain is been going on intermittently for the past several weeks. She is unaware of any aggravating or alleviating factors. She denies any nausea or vomiting. She denies any burning when she urinates. She has had no vaginal discharge or bleeding. Patient states that she is unaware of any eliciting factors. She states that she is tired of the pain just recurring as it is been intermittent throughout these past several weeks. Associated Symptoms: Denies chills, coffee ground emesis, constipation, GI cramping, diarrhea, dysuria, fever(s), heartburn, hematochezia, hematuria, hematemesis, melena, nausea, syncope and vomiting Review of Systems Const: Denies: fever(s), chills, body aches, fatigue, malaise or diaphoresis Eyes: Denies: change in vision, blurry vision, blind spots, photophobia, eye discharge or eye redness ENMT: Denies: throat pain, odynophagia, hoarseness, swelling of lips/tongue, oral sores, ear or mastoid pain, ear discharge, change in hearing or nasal discharge Card: Denies: chest pain, palpitations, irregular heart rhythm, edema, lightheadedness, syncope, pre-syncope, dyspnea on exertion or orthopnea Resp: Denies: dyspnea, productive cough, non-productive cough, wheezing, hemoptysis or chest congestion GI: Denies: nausea, vomiting, hematemesis, coffee ground emesis, heartburn, diarrhea, constipation, GI cramping, hematochezia or melena : Denies: flank pain, dysuria, urinary frequency, urinary urgency or hematuria Musc: Denies: neck pain, back pain, extremity pain, extremity swelling, joint pain, joint swelling, joint redness, joint warmth or joint stiffness Skin/Breast: Denies: rash, pruritus, erythema, skin tenderness or jaundice Neuro: Denies: headache(s), numbness in extremities, weakness in extremities, sensory changes, lack of coordination, difficulty walking, dizziness, vertigo, confusion, Slurred speech present or seizure-like activity Crow/Lymph: Denies: easy bruising, easy bleeding, petechiae, purpura or enlarged lymph nodes All/Imm: Denies: urticaria, throat swelling, tongue swelling, facial swelling or acute wheezing PFSH ED PFSH: Medical History Acute pain of left knee Anxiety Chronic sinusitis COPD (chronic obstructive pulmonary disease) DDD (degenerative disc disease), lumbar Dementia Depression Encounter for long-term opiate analgesic use Facet joint disease GERD (gastroesophageal reflux disease) Hyperlipidemia Hypertension Hypothyroidism Insomnia Lumbar foraminal stenosis Other intervertebral disc degeneration, lumbar region Pain in right hip Surgical History History of surgery on upper extremity Family History Mother Hypertension Father Hypertension Social History Smoking and tobacco status: never smoked Second hand smoke exposure: No Alcohol intake: never History of recent travel: No Physical Exam Const: COMMON NORMALS: no acute distress, patient oriented x3, no limitations, healthy appearing and well nourished GENERAL APPEARANCE: cooperative, well kempt and well developed HENMT: COMMON NORMALS: normocephalic, atraumatic, external ears normal, EAC's normal and Normal external nose present HEAD & SCALP: normal to inspection, normocephalic and atraumatic FACE & SINUS: normal facial exam and face symmetric NOSE: Normal external nose present and Normal nares present EXTERNAL EAR: Yes external ears normal EXTERNAL AUDITORY CANAL: EAC's normal MOUTH: Normal oral and palatal mucosa present, lip normal and tongue normal Eye: COMMON NORMALS: Equal, round and reactive pupils present and conjunctivae normal GENERAL EYE: appearance normal, both eyes and all related structures ALIGNMENT: Yes alignment normal PERIORBITAL: periorbital findings normal EYELID: eyelids normal CONJUNCTIVA: Yes conjunctivae normal SCLERA: sclerae normal PUPIL: Yes Equal, round and reactive pupils present Neck/C-Spine: COMMON NORMALS: full ROM, no lymphadenopathy, supple, no meningeal signs and no JVD GENERAL: Yes normal visual inspection and Yes trachea midline Chest: COMMONS NORMALS: normal inspection of the chest and normal palpation of entire chest wall Resp: COMMON NORMALS: normal respiratory effort, No retractions and No use of accessory muscles EFFORT & INSPECTION: Yes able to speak in complete sentences and Yes symmetric chest movement AUSCULTATION: no crackles, no rales, no rhonchi and no wheezes Cardio: COMMON NORMALS: no JVD, regular rate, regular rhythm, S1 normal heart sound present and S2 normal heart sound present RATE: regular rate RHYTHM: regular rhythm HEART SOUNDS: S1 normal heart sound present, S2 normal heart sound present, no click, no gallops, no murmurs, no rubs and abnormal split S2 GI: COMMON NORMALS: Soft to palpation and No hepatosplenomegaly present PALPATION: Yes Soft to palpation, Yes Tenderness to palpation present (GI) Details: LUQ, No Guarding due to palpation present (GI), No Rigid due to palpation, Yes No hepatosplenomegaly present, No Hernia present, No Palpable mass present and No Pulsatile mass present : COMMON NORMALS: Yes no CVA tenderness BLADDER/KIDNEY EXAM: Yes no CVA tenderness EXTERNAL FEMALE EXAM: No Hernia present Back/Pelvis: COMMON NORMALS: no CVA tenderness, thoracic and lumbar spine normal to inspection, no thoracic nor lumbar tenderness and thoraco-lumbar ROM normal Extremity: COMMON NORMALS: normal to inspection, full ROM, capillary refill normal, no joint enlargement, no clubbing, cyanosis or edema and no calf tenderness Neuro: COMMON NORMALS: patient oriented x3, CN's II-XII intact bilaterally, moves all extremities, no focal motor deficits and no sensory deficits noted MENINGEAL SIGNS: Yes no meningeal signs SPEECH: speech normal Psych: APPEARANCE: Yes well kempt Skin: COMMON NORMALS: no rashes or lesions noted, turgor normal, no jaundice, no petechiae and no mottling GENERAL SKIN EXAM: no rashes or lesions noted and turgor normal Course Vital Signs: Vital signs: Vital Signs Temperature 97.3 F L 08/22/19 13:13 Pulse Rate 65 08/22/19 19:15 Respiratory Rate 16 08/22/19 19:15 Blood Pressure 141/77 08/22/19 19:15 Pulse Oximetry 97 08/22/19 19:15 MDM - Abdominal Pain Lab Data: Attestation: I reviewed the patient's lab results. Labs: Lab Results 08/22/19 08/22/19 08/22/19 Range/Units 15:08 15:08 15:08 WBC 8.9 (4.0-10.0) 10^3/ uL RBC 4.07 L (4.1-5.3) 10^6/u L Hgb 12.4 (11.5-15.3) g/dL Hct 39.2 (37.0-47.0) % MCV 96.3 (81-99) fL MCH 30.5 (28.0-34.0) pg MCHC 31.6 (30.0-36.0) g/dL RDW 18.7 H (12.1-15.1) % Plt Count 315 (130-400) 10^3/c mm MPV 10.2 (7.4-10.4) fL Neut % (Auto) 64.8 % Lymph % (Auto) 26.7 % Callaway % (Auto) 6.9 % Eos % (Auto) 0.7 % Baso % (Auto) 0.8 % Neut # (Auto) 5.8 (1.8-7.7) 10^3/u L Lymph # (Auto) 2.4 (0.8-4.8) 10^3/u L [place]away # (Auto) 0.6 (0.2-0.9) 10^3/u L Eos # (Auto) 0.1 (0.0-0.8) 10^3/u L Baso # (Auto) 0.1 (0.0-0.1) 10^3/u L Nucleated RBC % (a uto) 0 % Nucleated RBCs # 0.0 /100WBC Sodium 137 (136-145) mmol/L Potassium 3.7 (3.5-5.1) mmol/L Chloride 100 (98-107) mmol/L Carbon Dioxide 23 (22-29) mmol/L Anion Gap 17.7 (5-19) BUN 10 (8-23) mg/dL Creatinine 0.7 (0.5-0.9) mg/dL GFR Calculation 83.7 L (90-130) mL/min Glucose 118 H (65-115) mg/dL Calculated Osmolal ity 281 L (285-295) mOsm/k g Calcium 9.9 (8.5-10.5) mg/dL Magnesium 2.0 (1.7-2.3) mg/dL Total Bilirubin 1.0 (0.15-1.2) mg/dL AST 22 (0-32) U/L ALT 21 (0-33) U/L Alkaline Phosphata se 70 (35-105) IU/L Troponin T Baselin e 9 (0-10) ng/L Troponin T 120 Min [place] (0-10) ng/L Delta Troponin T (0-10) ABS# Total Protein 6.9 (6.6-8.7) g/dL Albumin 4.2 (3.5-5.2) g/dL Globulin 2.7 (1.3-4.6) g/dL Lipase 16 (13-60) U/L Urine Color Urine Appearance Urine pH Ur Specific Gravit y Urine Protein Urine Glucose (UA) Urine Ketones Urine Blood Urine Nitrate Urine Bilirubin Prot Sulfosalicyli c Acd Urine Urobilinogen Ur Leukocyte Bethany ase Urine RBC (0-2) /hpf Urine WBC (0-5) /hpf Ur Squamous Epith Cells (0-5) Urine Bacteria (NONE) Urine Mucus 08/22/19 08/22/19 08/22/19 Range/Units 16:47 16:47 17:10 WBC (4.0-10.0) 10^3/ uL RBC (4.1-5.3) 10^6/u L Hgb (11.5-15.3) g/dL Hct (37.0-47.0) % MCV (81-99) fL MCH (28.0-34.0) pg MCHC (30.0-36.0) g/dL RDW (12.1-15.1) % Plt Count (130-400) 10^3/c mm MPV (7.4-10.4) fL Neut % (Auto) % Lymph % (Auto) % Callaway % (Auto) % Eos % (Auto) % Baso % (Auto) % Neut # (Auto) (1.8-7.7) 10^3/u L Lymph # (Auto) (0.8-4.8) 10^3/u L Callaway # (Auto) (0.2-0.9) 10^3/u L Eos # (Auto) (0.0-0.8) 10^3/u L Baso # (Auto) (0.0-0.1) 10^3/u L Nucleated RBC % (a uto) % Nucleated RBCs # /100WBC Sodium (136-145) mmol/L Potassium (3.5-5.1) mmol/L Chloride (98-107) mmol/L Carbon Dioxide (22-29) mmol/L Anion Gap (5-19) BUN (8-23) mg/dL Creatinine (0.5-0.9) mg/dL GFR Calculation (90-130) mL/min Glucose (65-115) mg/dL Calculated Osmolal ity (285-295) mOsm/k g Calcium (8.5-10.5) mg/dL Magnesium (1.7-2.3) mg/dL Total Bilirubin (0.15-1.2) mg/dL AST (0-32) U/L ALT (0-33) U/L Alkaline Phosphata se (35-105) IU/L Troponin T Baselin e (0-10) ng/L Troponin T 120 Min [place] 9.75 (0-10) ng/L Delta Troponin T 0.75 (0-10) ABS# Total Protein (6.6-8.7) g/dL Albumin (3.5-5.2) g/dL Globulin (1.3-4.6) g/dL Lipase (13-60) U/L Urine Color Cancelled Marilynn Urine Appearance Cancelled Sl cloudy A Urine pH Cancelled 6.5 Ur Specific Gravit y Cancelled 1.005 Urine Protein Cancelled Neg Urine Glucose (UA) Cancelled Norm Urine Ketones Cancelled Negative Urine Blood Cancelled Neg Urine Nitrate Cancelled Negative Urine Bilirubin Cancelled Neg Prot Sulfosalicyli c Acd Cancelled Urine Urobilinogen Cancelled 4 H Ur Leukocyte Bethany ase Cancelled 1+ H Urine RBC 10-15 H (0-2) /hpf Urine WBC 10-15 H (0-5) /hpf Ur Squamous Epith Cells 5-10 H (0-5) Urine Bacteria 1+ H (NONE) Urine Mucus 1+ Imaging Data ^: CT Abd/Pel: Radiologist's impression: [place] [address] [place] [address] CT Scan Report Signed Patient: Georgiana Mayo Unit #: [id number] : 1950 Age/Sex: 68 / F ADM Date: 08/22/19 Loc: ER Room/Bed: Attending Dr: Ordering Provider/Ordering MD: Carola Mcintyre DO Date of Service: 08/22/19 Procedure(s): CT abdomen pelvis w con* [id number] Accession Number(s): [id number] Report Number: [id number] PROCEDURE INFORMATION: Exam: CT Abdomen And Pelvis With Contrast Exam date and time: 08/22/2019 3:22 PM Age: 68 years old Clinical indication: Abdominal pain; Prior surgery; Surgery date: 6+ months; Surgery type: Bladder; Patient HX: C/O epigastric and L sided abd pain w constipation TECHNIQUE: Imaging protocol: Computed tomography of the abdomen and pelvis with intravenous contrast. Radiation optimization: All CT scans at this facility use at least one of these dose optimization techniques: automated exposure control; mA and/or kV adjustment per patient size (includes targeted exams where dose is matched to clinical indication); or iterative reconstruction. Contrast material: OMNI 300; Contrast volume: 95 ml; Contrast route: INTRAVENOUS (IV); COMPARISON: CT chest abd pel w con* 08/01/2019 6:35 PM RADIATION DOSE METRICS: Total DLP (mGy-cm): 1291.13 FINDINGS: Liver: Normal. No mass. Gallbladder and bile ducts: Normal. No calcified stones. No ductal dilation. Pancreas: Normal. No ductal dilation. Spleen: Normal. No splenomegaly. Adrenals: Normal. No mass. Kidneys and ureters: Multiple left renal simple cysts with the largest measuring > 1.0 cm. Stomach and bowel: Unremarkable. No obstruction. No mucosal thickening. Appendix: Normal appendix. Intraperitoneal space: Unremarkable. No free air. No significant fluid collection. Vasculature: Calcification of the abdominal aorta and/or iliac arteries consistent with atherosclerotic vessel disease. One or more calcified pelvic phleboliths. Lymph nodes: Unremarkable. No enlarged lymph nodes. Bladder: Unremarkable as visualized. Reproductive: Unremarkable as visualized. Bones/joints: Moderate L3-L4 central spinal stenosis. Moderate to severe multilevel spine degenerative changes including degenerative disc disease, spondylosis and facet degenerative changes. Soft tissues: Unremarkable. CT/CT abdomen pelvis w con* [id number] IMPRESSION: 1. Moderate L3-L4 central spinal stenosis. 2. No acute findings. COMMENTS: Consistent with the [employer]'s Incidental Findings Committee white paper (J Am Padmini Radiol 2018): Any incidental renal lesion less than 1.0 cm or classified as too small to characterize, or any incidental cystic renal lesion characterized as simple-appearing, is likely benign. No follow-up imaging is recommended for these lesions per consensus recommendations based on imaging criteria. Radiation Dose CTDIVOL = (mGy): DLP = 1291.13 (mGy-cm) Dictated By: Aston Laguerre MD Signed By: Aston Laguerre MD Signed Date/Time: 08/22/191615 DD/ 13 Discharge Plan Discharge Patient Disposition: Home, Self-Care Clinical Impression: Acute UTI Insomnia Qualifiers: Insomnia type: unspecified Qualified Code(s): G47.00 - Insomnia, unspecified Condition: Stable Prescriptions: New trazodone 50 mg tablet 50 mg PO BEDTIME PRN (Reason: sleep) Qty: 30 RF: 0 Continued levothyroxine 50 mcg capsule 50 mcg PO DAILY Qty: 30 RF: 11 buspirone 7.5 mg tablet 7.5 mg PO BID PRN (Reason: Anxiety) RF: 0 naproxen 500 mg tablet 500 mg PO BID PRN (Reason: Pain) RF: 0 nystatin 100,000 unit/gram cream 1 applic TOPICAL BID RF: 0 albuterol sulfate 2.5 mg /3 mL (0.083 %) solution for nebulization 2.5 mg INHALATION BID RF: 0 ibuprofen 600 mg tablet 600 mg PO TID PRN (Reason: Pain) RF: 0 oxycodone-acetaminophen [Percocet] 5-325 mg tablet 1 tab PO TID PRN (Reason: pain) 30 Days Qty: 90 RF: 0 hydroxyzine HCl 10 mg tablet 10 mg PO Q6H PRN (Reason: anxiety) 15 Days Qty: 30 RF: 0 albuterol sulfate [Ventolin HFA] 90 mcg/actuation HFA aerosol inhaler See Rx Instructions .ROUTE .COMPLEX Qty: 36 RF: 0 Symbicort 160-4.5 mcg/actuation HFA aerosol inhaler 2 puff INHALATION Q12H 30 Days Qty: 10.2 RF: 1 cetirizine [Allergy Relief (cetirizine)] 10 mg tablet 10 mg PO DAILY PRN (Reason: Allergy Symptoms) 30 Days Qty: 30 RF: 1 fluticasone propionate [Allergy Relief (fluticasone)] 50 mcg/actuation spray,suspension 2 spray INTRANASAL DAILY 30 Days Qty: 16 RF: 1 hydrochlorothiazide 25 mg tablet 25 mg PO DAILY 30 Days Qty: 30 RF: 1 triamcinolone acetonide 0.1 % cream 1 applic TOPICAL DAILY 30 Days Qty: 30 RF: 1 nystatin [Nystop] 100,000 unit/gram powder 1 applic TOPICAL QID 30 Days Qty: 60 RF: 1 atorvastatin 20 mg tablet 20 mg PO DAILY RF: 0 ergocalciferol (vitamin D2) 1,250 mcg (50,000 unit) capsule 1,250 mcg PO Q7D RF: 0 lactulose 20 gram/30 mL solution 20 gm PO BID PRN (Reason: Constipation) RF: 0 meclizine 12.5 mg Tablet 12.5 mg PO BID PRN (Reason: Dizziness) RF: 0 vitamin B complex Tablet 1 tab PO DAILY Qty: 30 RF: 0 Discharge Orders: Discharge Order (Routine); Ordered 08/22/19 Ordered By: Brendan De La Rosa Referrals: Kristie Boswell FNP [Primary Care Provider] - 4-7 days Patient Instructions: Urinary Tract Infection in Women (ED), Insomnia (ED) Activity Restrictions/Additional Instructions: Return for any new or worsening symptoms. Follow up with your primary care provider within one week. Take your medications as prescriptions. Discharge Date/Time: 08/22/19 19:17 Sign Out Sign Out Data: Patient Sign Out occurred on 08/22/19 at 17:14. Patient's care was discussed, and care was transferred from to Brendan De La Rosa MD, [facility] [place] Coding Level of Care Code ED Document Imaging Manager for Chg Fwd Exam Comprehensive Documented by User: Brendan De La Rosa MD, [facility] [place] 08/22/19 21:47 HPI - Abdominal Pain General: Chief Complaint: Abdominal Pain Stated Complaint: upper abd pressure Time Seen by Provider: 08/22/19 14:33 PFSH ED PFSH: Medical History Acute pain of left knee Anxiety Chronic sinusitis COPD (chronic obstructive pulmonary disease) DDD (degenerative disc disease), lumbar Dementia Depression Encounter for long-term opiate analgesic use Facet joint disease GERD (gastroesophageal reflux disease) Hyperlipidemia Hypertension Hypothyroidism Insomnia Lumbar foraminal stenosis Other intervertebral disc degeneration, lumbar region Pain in right hip Surgical History History of surgery on upper extremity Family History Mother Hypertension Father Hypertension Social History Smoking and tobacco status: never smoked Second hand smoke exposure: No Alcohol intake: never History of recent travel: No Course Reevaluation(s): Reevaluation #1: Discussed her lab and imaging findings with her. Negative other than possible UTI. Dr. Ware thought she might have a UTI and has written a prescription for antibiotics which her has failed, they state the prescriptions are in their car. We will give a dose of IV ceftriaxone and discharge her home. She also complains of insomnia and I will write her prescription for some trazodone. She voiced understanding and is in agreement with the plan. Time: 18:39 Vital Signs: Vital signs: Vital Signs Temperature 97.3 F L 08/22/19 13:13 Pulse Rate 65 08/22/19 19:15 Respiratory Rate 16 08/22/19 19:15 Blood Pressure 141/77 08/22/19 19:15 Pulse Oximetry 97 08/22/19 19:15 MDM - Abdominal Pain MDM Narrative: Medical decision making narrative: This patient was signed out to me by Dr. Keenan. See the history and physical for documentation. 68 year old female who fell about 4 weeks ago and presents today with abdominal pain. Evaluation, including an abdominopelvic CT is negative for acute findings other than possible UTI. Her PCP has given her a prescription for antibiotic, but she is given a dose of IV ceftriaxone. She is discharged home with no new orders. Lab Data: Labs: Lab Results 08/22/19 08/22/19 08/22/19 Range/Units 15:08 15:08 15:08 WBC 8.9 (4.0-10.0) 10^3/ uL RBC 4.07 L (4.1-5.3) 10^6/u L Hgb 12.4 (11.5-15.3) g/dL Hct 39.2 (37.0-47.0) % MCV 96.3 (81-99) fL MCH 30.5 (28.0-34.0) pg MCHC 31.6 (30.0-36.0) g/dL RDW 18.7 H (12.1-15.1) % Plt Count 315 (130-400) 10^3/c mm MPV 10.2 (7.4-10.4) fL Neut % (Auto) 64.8 % Lymph % (Auto) 26.7 % Callaway % (Auto) 6.9 % Eos % (Auto) 0.7 % Baso % (Auto) 0.8 % Neut # (Auto) 5.8 (1.8-7.7) 10^3/u L Lymph # (Auto) 2.4 (0.8-4.8) 10^3/u L [place]away # (Auto) 0.6 (0.2-0.9) 10^3/u L Eos # (Auto) 0.1 (0.0-0.8) 10^3/u L Baso # (Auto) 0.1 (0.0-0.1) 10^3/u L Nucleated RBC % (a uto) 0 % Nucleated RBCs # 0.0 /100WBC Sodium 137 (136-145) mmol/L Potassium 3.7 (3.5-5.1) mmol/L Chloride 100 (98-107) mmol/L Carbon Dioxide 23 (22-29) mmol/L Anion Gap 17.7 (5-19) BUN 10 (8-23) mg/dL Creatinine 0.7 (0.5-0.9) mg/dL GFR Calculation 83.7 L (90-130) mL/min Glucose 118 H (65-115) mg/dL Calculated Osmolal ity 281 L (285-295) mOsm/k g Calcium 9.9 (8.5-10.5) mg/dL Magnesium 2.0 (1.7-2.3) mg/dL Total Bilirubin 1.0 (0.15-1.2) mg/dL AST 22 (0-32) U/L ALT 21 (0-33) U/L Alkaline Phosphata se 70 (35-105) IU/L Troponin T Baselin e 9 (0-10) ng/L Troponin T 120 Min [place] (0-10) ng/L Delta Troponin T (0-10) ABS# Total Protein 6.9 (6.6-8.7) g/dL Albumin 4.2 (3.5-5.2) g/dL Globulin 2.7 (1.3-4.6) g/dL Lipase 16 (13-60) U/L Urine Color Urine Appearance Urine pH Ur Specific Gravit y Urine Protein Urine Glucose (UA) Urine Ketones Urine Blood Urine Nitrate Urine Bilirubin Prot Sulfosalicyli c Acd Urine Urobilinogen Ur Leukocyte Bethany ase Urine RBC (0-2) /hpf Urine WBC (0-5) /hpf Ur Squamous Epith Cells (0-5) Urine Bacteria (NONE) Urine Mucus 08/22/19 08/22/19 08/22/19 Range/Units 16:47 16:47 17:10 WBC (4.0-10.0) 10^3/ uL RBC (4.1-5.3) 10^6/u L Hgb (11.5-15.3) g/dL Hct (37.0-47.0) % MCV (81-99) fL MCH (28.0-34.0) pg MCHC (30.0-36.0) g/dL RDW (12.1-15.1) % Plt Count (130-400) 10^3/c mm MPV (7.4-10.4) fL Neut % (Auto) % Lymph % (Auto) % [place]away % (Auto) % Eos % (Auto) % Baso % (Auto) % Neut # (Auto) (1.8-7.7) 10^3/u L Lymph # (Auto) (0.8-4.8) 10^3/u L [place] # (Auto) (0.2-0.9) 10^3/u L Eos # (Auto) (0.0-0.8) 10^3/u L Baso # (Auto) (0.0-0.1) 10^3/u L Nucleated RBC % (a uto) % Nucleated RBCs # /100WBC Sodium (136-145) mmol/L Potassium (3.5-5.1) mmol/L Chloride (98-107) mmol/L Carbon Dioxide (22-29) mmol/L Anion Gap (5-19) BUN (8-23) mg/dL Creatinine (0.5-0.9) mg/dL GFR Calculation (90-130) mL/min Glucose (65-115) mg/dL Calculated Osmolal ity (285-295) mOsm/k g Calcium (8.5-10.5) mg/dL Magnesium (1.7-2.3) mg/dL Total Bilirubin (0.15-1.2) mg/dL AST (0-32) U/L ALT (0-33) U/L Alkaline Phosphata se (35-105) IU/L Troponin T Baselin e (0-10) ng/L Troponin T 120 Min [place] 9.75 (0-10) ng/L Delta Troponin T 0.75 (0-10) ABS# Total Protein (6.6-8.7) g/dL Albumin (3.5-5.2) g/dL Globulin (1.3-4.6) g/dL Lipase (13-60) U/L Urine Color Cancelled Marilynn Urine Appearance Cancelled Sl cloudy A Urine pH Cancelled 6.5 Ur Specific Gravit y Cancelled 1.005 Urine Protein Cancelled Neg Urine Glucose (UA) Cancelled Norm Urine Ketones Cancelled Negative Urine Blood Cancelled Neg Urine Nitrate Cancelled Negative Urine Bilirubin Cancelled Neg Prot Sulfosalicyli c Acd Cancelled Urine Urobilinogen Cancelled 4 H Ur Leukocyte Bethany ase Cancelled 1+ H Urine RBC 10-15 H (0-2) /hpf Urine WBC 10-15 H (0-5) /hpf Ur Squamous Epith Cells 5-10 H (0-5) Urine Bacteria 1+ H (NONE) Urine Mucus 1+ Discharge Plan Discharge Patient Disposition: Home, Self-Care Clinical Impression: Acute UTI Insomnia Qualifiers: Insomnia type: unspecified Qualified Code(s): G47.00 - Insomnia, unspecified Condition: Stable Prescriptions: New trazodone 50 mg tablet 50 mg PO BEDTIME PRN (Reason: sleep) Qty: 30 RF: 0 Continued levothyroxine 50 mcg capsule 50 mcg PO DAILY Qty: 30 RF: 11 buspirone 7.5 mg tablet 7.5 mg PO BID PRN (Reason: Anxiety) RF: 0 naproxen 500 mg tablet 500 mg PO BID PRN (Reason: Pain) RF: 0 nystatin 100,000 unit/gram cream 1 applic TOPICAL BID RF: 0 albuterol sulfate 2.5 mg /3 mL (0.083 %) solution for nebulization 2.5 mg INHALATION BID RF: 0 ibuprofen 600 mg tablet 600 mg PO TID PRN (Reason: Pain) RF: 0 oxycodone-acetaminophen [Percocet] 5-325 mg tablet 1 tab PO TID PRN (Reason: pain) 30 Days Qty: 90 RF: 0 hydroxyzine HCl 10 mg tablet 10 mg PO Q6H PRN (Reason: anxiety) 15 Days Qty: 30 RF: 0 albuterol sulfate [Ventolin HFA] 90 mcg/actuation HFA aerosol inhaler See Rx Instructions .ROUTE .COMPLEX Qty: 36 RF: 0 Symbicort 160-4.5 mcg/actuation HFA aerosol inhaler 2 puff INHALATION Q12H 30 Days Qty: 10.2 RF: 1 cetirizine [Allergy Relief (cetirizine)] 10 mg tablet 10 mg PO DAILY PRN (Reason: Allergy Symptoms) 30 Days Qty: 30 RF: 1 fluticasone propionate [Allergy Relief (fluticasone)] 50 mcg/actuation spray,suspension 2 spray INTRANASAL DAILY 30 Days Qty: 16 RF: 1 hydrochlorothiazide 25 mg tablet 25 mg PO DAILY 30 Days Qty: 30 RF: 1 triamcinolone acetonide 0.1 % cream 1 applic TOPICAL DAILY 30 Days Qty: 30 RF: 1 nystatin [Nystop] 100,000 unit/gram powder 1 applic TOPICAL QID 30 Days Qty: 60 RF: 1 atorvastatin 20 mg tablet 20 mg PO DAILY RF: 0 ergocalciferol (vitamin D2) 1,250 mcg (50,000 unit) capsule 1,250 mcg PO Q7D RF: 0 lactulose 20 gram/30 mL solution 20 gm PO BID PRN (Reason: Constipation) RF: 0 meclizine 12.5 mg Tablet 12.5 mg PO BID PRN (Reason: Dizziness) RF: 0 vitamin B complex Tablet 1 tab PO DAILY Qty: 30 RF: 0 Discharge Orders: Discharge Order (Routine); Ordered 08/22/19 Ordered By: Brendan De La Rosa Referrals: Kristie Boswell FNP [Primary Care Provider] - 4-7 days Patient Instructions: Urinary Tract Infection in Women (ED), Insomnia (ED) Activity Restrictions/Additional Instructions: Return for any new or worsening symptoms. Follow up with your primary care provider within one week. Take your medications as prescriptions. Discharge Date/Time: 08/22/19 19:17 Sign Out Sign Out Data: Patient Sign Out occurred on 08/22/19 at 17:14. Patient's care was discussed, and care was transferred from to Brendan De La Rosa MD, [facility] [place]. Coding Level of Care Code ED Document Imaging Manager for Chg Fwd Exam Comprehensive
[2019-08-22] MEDS: sodium chloride 0.9% 1,000 ML 100 ML IV (16:08)
[2019-08-22] MEDS: ondansetron 2 mg/ML SDV 2 mL 4 MG IVP (16:09)
[2019-08-22 16:10] VITALS: RESP 18
[2019-08-22] MEDS: morphine 4 mg/mL SDV 1 mL IVP (16:10)
[2019-08-22 16:56] LABS: Troponin(5th) Baseline 9 ng/L (0-10)
[2019-08-22 17:52] LABS: Specific Gravity, Urine 1.005 (1.005-1.030); Urine Color Amber (Yellow); pH Urine 6.5 (5-7)
[2019-08-22 17:53] LABS: Add Urine Culture? Yes; Bacteria Urine 1+; Bilirubin Urine Neg (NEGATIVE); Blood Urine Neg (Negative); Glucose Urine UA Norm (Normal); Ketones Urine Negative (Negative); Leukocyte Esterase Urine 1+ (Negative); Mucus Urine 1+; Nitrate Urine Negative (Negative); Protein Urine Neg (Negative); Urobilinogen Urine 4 mg/dL (Negative)
[2019-08-22] MEDS: cefTRIAXone 1,000 MG in sodium chloride 0.9% (plus) 50 ML 100 MG IV (18:40)
[2019-08-22 19:15] VITALS: BP 141/77; PULSE 65; RESP 16; O2SAT 97
[2019-08-22 20:43] LABS: Troponin 5 2HR 9.75 ng/L (0-10); Troponin 5 2HR Delta 0.75 ABS# (0-10)
== END 2019-08-22 19:17 | disposition home or self-care (01) ==
PROVIDERS: Emergency Medicine; Emergency Provider Family Medicine; PCP Nurse Practitioner
DX: N39.0 Urinary tract infection, site not specified (principal); G47.00 Insomnia, unspecified; J44.9 Chronic obstructive pulmonary disease, unspecified; F03.90 Unspecified dementia, unspecified severity, without behavioral disturbance, psychotic disturbance, mood disturbance, and anxiety; E78.5 Hyperlipidemia, unspecified; I10 Essential (primary) hypertension; E03.9 Hypothyroidism, unspecified
CPT/HCPCS: 12345; 36415; 74177; 80053; 81001; 81003; 83615; 83690; 83735; 84484; 85025; 85045; 87086; 96361; 96365; 96375; 99284; J0696; J2270; J2405; J7030; Q9967

== ENCOUNTER → 2019-09-05 12:29 | Outpatient (BNVA) | payer MEDICARE, MEDICAID, SELFPAY | PROVIDERS: PCP Family Medicine; Visit Provider Anesthesiology | DX: M54.42 Lumbago with sciatica, left side (principal); M48.061 Spinal stenosis, lumbar region without neurogenic claudication; M51.36 Other intervertebral disc degeneration, lumbar region; M47.819 Spondylosis without myelopathy or radiculopathy, site unspecified; M54.9 Dorsalgia, unspecified; Z79.891 Long term (current) use of opiate analgesic | CPT/HCPCS: 99214 ==

== ENCOUNTER → 2019-11-07 09:50 | Outpatient (BNVA) | payer MEDICARE, MEDICAID, SELFPAY | PROVIDERS: PCP Family Medicine; Visit Provider Anesthesiology | DX: M54.42 Lumbago with sciatica, left side (principal); M48.061 Spinal stenosis, lumbar region without neurogenic claudication; M51.36 Other intervertebral disc degeneration, lumbar region; M47.819 Spondylosis without myelopathy or radiculopathy, site unspecified; M54.9 Dorsalgia, unspecified; Z79.891 Long term (current) use of opiate analgesic | CPT/HCPCS: 99213; 99214 ==

== ENCOUNTER → 2020-01-09 07:56 | Outpatient (BNVA) | payer MEDICARE, MEDICAID, SELFPAY | PROVIDERS: PCP Family Medicine Adult Medicine; Visit Provider Anesthesiology | DX: M54.42 Lumbago with sciatica, left side (principal); M51.36 Other intervertebral disc degeneration, lumbar region; M47.819 Spondylosis without myelopathy or radiculopathy, site unspecified; M54.9 Dorsalgia, unspecified; D51.0 Vitamin B12 deficiency anemia due to intrinsic factor deficiency; N39.0 Urinary tract infection, site not specified; E03.9 Hypothyroidism, unspecified; E78.5 Hyperlipidemia, unspecified; I10 Essential (primary) hypertension; Z68.34 Body mass index [BMI] 34.0-34.9, adult; Z71.89 Other specified counseling; Z79.891 Long term (current) use of opiate analgesic | CPT/HCPCS: 80053; 80061; 81000; 83036; 84443; 85025; 99212; 99214 ==

== ENCOUNTER → 2020-03-12 08:57 | Outpatient (BNVA) | payer MEDICARE, MEDICAID, SELFPAY | PROVIDERS: PCP Family Medicine Adult Medicine; Visit Provider Nurse Practitioner | DX: M54.9 Dorsalgia, unspecified (principal); M47.819 Spondylosis without myelopathy or radiculopathy, site unspecified; M51.36 Other intervertebral disc degeneration, lumbar region; M79.2 Neuralgia and neuritis, unspecified; Z79.891 Long term (current) use of opiate analgesic; M54.2 Cervicalgia; M47.814 Spondylosis without myelopathy or radiculopathy, thoracic region; M81.0 Age-related osteoporosis without current pathological fracture; M47.816 Spondylosis without myelopathy or radiculopathy, lumbar region | CPT/HCPCS: 72050; 72070; 72114; 99214 ==

== ENCOUNTER 2020-03-12 10:28 | Outpatient (CLI) | payer MEDICARE, MEDICAID, SELFPAY ==
--- NOTE | 2020-03-12 10:44 | XR_ITS ---
WS: [id number] Thoracic spine, 4 views, 03/12/2020 Clinical Data: R52 - Pain, unspecified Comparison: None. Findings: No compression fractures are seen. The disc heights are normal. There is minimal osteoarthritic spurr ing involving the mid and lower thoracic vertebral bodies. Osteoporosis is present. The paravertebral areas are unremarkable. XR/XR thoracic spine 2V 14403 Impression: 1. Mild osteoarthritis. 2. Osteoporosis
--- NOTE | 2020-03-12 10:44 | XR_ITS ---
WS: [id number] Cervical spine, AP, AP odontoid and lateral with neutral, flexion and extension, 03/12/2020 Clinical Data: R52 - Pain, unspecified Comparison: None. Findings: No compression fractures are seen. There is a minimal dextroscoliosis. The disc heights are normal. There is no prevertebral soft tissue swelling. The odontoid is unremarkable. The lung apices are normal. There is minimal calcification on the right side of the neck which may be in carotid bif urcation. XR/XR cervical spine 4-5V 62276 Impression: 1. Negative for limitation of motion or subluxation on flexion or extension. 2. Minimal calcification in right carotid bifurcation.
--- NOTE | 2020-03-12 10:44 | XR_ITS ---
WS: [id number] Lumbar spine, AP, lateral with flexion, extension and neutral views, L5-S1 spot, 03/12/2020 Clinical Data: R52 - Pain, unspecified Comparison: Lumbar spine, 07/25/2019. Findings: No compression fractures or subluxation is seen. There is degenerative disc narrowing at T12-L1, L2-L 3 and L3-L4. Moderate osteoarthritic spurring of the lumbar vertebral bodies from L1 through L4 is se en. There is a retrolisthesis of L3 on L4 of 0.5 cm and a retrolisthesis of 0.3 cm at L1-L2. Subluxat ion of L3 on L4 of 0.5 cm and 0.3 cm a L1-L2. Osteoporosis is present. The transverse processes and S I joints are normal. On flexion and extension there is no limitation of motion or change in the subluxation. XR/XR lumbar spine min 4V 33640 Impression: 1. On flexion and extension there is no limitation of motion or change in sublu xation. 2. Osteoarthritis and osteoporosis. 3. Retrolisthesis of 0.5 cm of L3 on L4 and 0.3 cm of L1 on L2.
== END 2020-03-12 10:29 | disposition home or self-care (01) ==
PROVIDERS: PCP Family Medicine Adult Medicine; Visit Provider Nurse Practitioner
DX: M54.2 Cervicalgia (principal); M47.814 Spondylosis without myelopathy or radiculopathy, thoracic region; M81.0 Age-related osteoporosis without current pathological fracture; M47.816 Spondylosis without myelopathy or radiculopathy, lumbar region
CPT/HCPCS: 72050; 72070; 72114

== ENCOUNTER → 2020-05-07 08:44 | Outpatient (BNVA) | payer MEDICARE, MEDICAID, SELFPAY | PROVIDERS: PCP Family Medicine Adult Medicine; Visit Provider Nurse Practitioner | DX: M51.36 Other intervertebral disc degeneration, lumbar region (principal); M47.819 Spondylosis without myelopathy or radiculopathy, site unspecified; M54.9 Dorsalgia, unspecified; Z79.891 Long term (current) use of opiate analgesic | CPT/HCPCS: 99213 ==

== ENCOUNTER → 2020-07-02 13:46 | Outpatient (BNVA) | payer MEDICARE, MEDICAID, SELFPAY | PROVIDERS: PCP Family Medicine Adult Medicine; Visit Provider Family Medicine Adult Medicine | DX: R73.03 Prediabetes (principal); D51.0 Vitamin B12 deficiency anemia due to intrinsic factor deficiency; I10 Essential (primary) hypertension; G62.9 Polyneuropathy, unspecified; J44.9 Chronic obstructive pulmonary disease, unspecified; J30.9 Allergic rhinitis, unspecified; J32.4 Chronic pansinusitis; T63.441A Toxic effect of venom of bees, accidental (unintentional), initial encounter; E78.5 Hyperlipidemia, unspecified; E03.9 Hypothyroidism, unspecified; K21.9 Gastro-esophageal reflux disease without esophagitis; K59.00 Constipation, unspecified; F32.9 Major depressive disorder, single episode, unspecified; Z79.891 Long term (current) use of opiate analgesic | CPT/HCPCS: 80053; 83036; 85025 ==

== ENCOUNTER → 2020-07-09 08:18 | Outpatient (BNVA) | payer MEDICARE, MEDICAID, SELFPAY | PROVIDERS: PCP Family Medicine Adult Medicine; Visit Provider Anesthesiology | DX: G89.29 Other chronic pain (principal); M51.36 Other intervertebral disc degeneration, lumbar region; M47.819 Spondylosis without myelopathy or radiculopathy, site unspecified; M54.9 Dorsalgia, unspecified; Z79.891 Long term (current) use of opiate analgesic | CPT/HCPCS: 99213 ==

== ENCOUNTER → 2020-09-03 08:39 | Outpatient (BNVA) | payer MEDICARE, MEDICAID, SELFPAY | PROVIDERS: PCP Family Medicine Adult Medicine; Visit Provider Nurse Practitioner | DX: G89.29 Other chronic pain (principal); M51.36 Other intervertebral disc degeneration, lumbar region; M48.061 Spinal stenosis, lumbar region without neurogenic claudication; M47.819 Spondylosis without myelopathy or radiculopathy, site unspecified; G62.9 Polyneuropathy, unspecified; Z79.891 Long term (current) use of opiate analgesic | CPT/HCPCS: 99213 ==

== ENCOUNTER → 2020-09-22 08:47 | Outpatient (BNVA) | payer MEDICARE, MEDICAID, SELFPAY | PROVIDERS: PCP Family Medicine Adult Medicine; Visit Provider Orthopaedic Surgery | DX: Z01.812 Encounter for preprocedural laboratory examination (principal); Z20.822 Contact with and (suspected) exposure to COVID-19 | CPT/HCPCS: 87635 ==

== ENCOUNTER 2020-09-24 06:53 | Day surgery (SDC) | payer MEDICARE, MEDICAID, SELFPAY ==
[2020-09-23 09:20] VITALS: BMI 31.3
[2020-09-24] VITALS (8 sets, daily range): BP systolic 144–183; BP diastolic 56–87; PULSE 65–97; RESP 12–18; TEMP 36.3–36.7; O2SAT 92–97
--- NOTE | 2020-09-24 | SCC_ITS ---
Procedure Done: 1. L3/4 bilateral laminectomy with partial facetecomies 10.5 seconds of fluoroscopic guidance, for a cumulative dose of 10.77 mGy, was provided to Dr. Menjivar by the radiology department. C-arm images of the lumbar spine were saved for the patient's permanent record. [facility]
[2020-09-24] MEDS: sodium chloride 0.9% 1,000 ML 30 ML IV (08:27)
--- NOTE | 2020-09-24 08:51 | ANES.PREANE2 ---
Pre-Anesthetic Assessment Pre-Anesthetic Assessment: Height/Weight: Height 1.7 m Weight 90.718 kg Temp Pulse Resp BP Pulse Ox 97.7 F 66 18 165/87 96 09/24/20 07:35 09/24/20 07:35 09/24/20 07:35 09/24/20 07:35 09/24/20 07:35 Preop Diagnosis: lumbar stenosis Proposed Procedure: Operation Date: 09/24/20 08:40 Proposed Procedures p MIS lumbar spine decompression stenosis L3/4 53102 M48.061(Not Applicable) - Doug Menjivar, DO Was Beta Carol taken within 24 hours: N/A Was Clonidine taken within 24 hours: N/A Last intake: Intake Last Liquid Date 09/24/20 Last Liquid Time 03:00 Last Solid Date 09/23/20 Last Solid Time 22:00 Social: Social History: No alcohol and No tobacco Exam: Pre-Anes Outpt Exam: alert, oriented x 3, clear to auscultation bilaterally and regular rate & rhythm Airway: Submandibular: WNL Cervical ROM: WNL MP: 2 Dentition: False Pulmonary: Pulmonary: COPD CV/HEM: CV/HEM: Anemia and HTN Comments: ??angioedema--patient describes tongue swelling randomly (plan to pretreat with benadryl and steroids) GI: GI: GERD Metabolic: Metabolic: Hyperlipidemia, Morbid obesity and Thyroid Musc/skel: Musc/skel: Lower Back Pain and OA/DJD Neuropsych: Neuropsych: Anxiety and Depression Anesthetic Plan: ASA status: 3 Anesthesia: General Risk of > 500 ml blood loss (7ml/kg in children): No Meds/Allergies Current Medications: Current Medications Generic Name Dose Route Start Last Admin Trade Name Freq PRN Reason Stop Dose Admin Sodium Chloride 1,000 mls @ 30 ml s/hr 09/24/20 08:15 09/24/20 08:27 Sodium Chloride 0.9% IV 09/25/20 08:14 30 mls/hr .Q24H LYNNE Administration PFSH Anesthesia PFSH: Medical History Allergic reaction to bee sting Allergic rhinitis due to allergen Anxiety Chronic low back pain Chronic sinusitis Constipation COPD (chronic obstructive pulmonary disease) DDD (degenerative disc disease), lumbar Dementia Depression Encounter for long-term opiate analgesic use Facet joint disease GERD (gastroesophageal reflux disease) She has acid reflux and is taking pantoprazole 40 mg daily this is controlling her symptoms well. Hyperlipidemia Hypertension Hypothyroidism She has hypothyroidism and her last TSH was 2.3 and 02/03/2020 and she is on levothyroxine 50 MCG's daily and will recheck her TSH at least yearly. Insomnia Left acute otitis media Lumbar foraminal stenosis Pain in right hip Peripheral neuralgia Peripheral neuropathy Pernicious anemia Prediabetes Surgical History History of surgery on upper extremity Family History Mother Hypertension Father Hypertension Social History Second hand smoke exposure: No Alcohol intake: never History of recent travel: No Data Anesthesia Cardiac Studies: No Data to Display
--- NOTE | 2020-09-24 09:43 | W.PM.OPSUD ---
Surgery/Procedure H&P Update DATE OF PROCEDURE: September 24, 2020 DATE H&P PERFORMED: 09/14/20 H&P UPDATE INFORMATION: I have reviewed H&P completed within last 30 days, I have examined patient prior to procedure and No changes to prior documentation PREOP DIAGNOSIS: lumbar stenosis PLANNED PROCEDURE: Operation Date: 09/24/20 08:40 Proposed Procedures p MIS lumbar spine decompression stenosis L3/4 11099 M48.061(Not Applicable) - Doug Menjivar DO
--- NOTE | 2020-09-24 11:06 | PM.OP ---
Operative Report Date of procedure: September 24, 2020 Pre-op Diagnosis: lumbar stenosis Post-op diagnosis: same Procedure Done: 1. L3/4 bilateral laminectomy with partial facetecomies Surgeon: Doug Menjivar Anesthesia: General Estimated blood loss (mL): 10 Condition: stable Disposition: PACU Procedure: 1. L3/4 bilateral laminectomy with partial facetecomies Patient is brought to the operative suite. After undergoing anesthesia they are placed in the supine position. All areas of impingement are well padded. Patient is then prepped and draped in the normal sterile fashion. A skin incision is made over the L3/4 level. This is confirmed under c-arm guidance. A series of dilators are passed and the tubular retractor is docked on the L3 lamina. A bovie is used to clear the soft tissue off the lamina and the L 3/4 facet joint. A high speed vasiliy is then used to perform the laminectomy and take down the medial aspect of the L 3/4 facet joint. A kerrison rongeure was then used to take down the remaining lamina and smooth the edged of the laminectomy up to the point where the ligamentum flavum attaches. Attention was then brought to the medial aspect of the facet joint. The remaining medial aspect of the superior and inferior aspect of the facet joint were taken down with the kerrison from the pedicle of L3 to L 4. The facet joint had significant hypertrophy. Attention was then brought to the Ligamentum Flavum. The ligament was taken down from the lamina of L3 to L4 and out medially to the remaining facet joint. The ligament was thick. The dura was then exposed. The dura was in good repair. The L3 nerve was then traced with a curette out the L3/4 foramen and found to be adequately decompressed. The L4 nerve was traced with a curette around the L4 pedicle. The lateral recess was opened with a kerrison helping to further decompress the L4 nerve. The tubular retractor was then tilted to the contralateral side. The bovie was used to take down the soft tissue on the spinous process. The high speed vasiliy was used to take down the spinous process and then the contralateral lamina of L3. The kerrison rongeur was used to take down the remaining lamina to the point where the ligamentum flavum attached and the ligamentum flavum was taken down from L3 to L4. The kerrison rongeur was then used to reach across and take down the medial aspect of the contralateral L3/4 facet joint.The currete was used to trace the contralateral L3 nerve out the L3/4 foramen to make sure it was decompressed adequatesly and the L4 was traced around the L4 pedicle. The lateral recess was opened further with the kerrison to ensure the L[] is adequately decompressed. Wound is then irrigated copiously with saline and surgiflo is used to stop any bleeding. The tubular retractor is removed and the wound is closed with vicryl and monocryl suture. Glue is then used to protect the wound. A sterile dressing is then placed. Patient was then placed in the supine position and transferred to the PACU in stable condition.
--- NOTE | 2020-09-24 11:07 | XR_ITS ---
WS: [id number] XR lumbar spine 2-3V* [id number] REASON FOR EXAM: lumbar stenosis FINDINGS: Surgical device overlying the right side of the L3-L4 interspace posteriorly. XR/XR lumbar spine 2-3V* [id number] IMPRESSION: Intraoperative localization of the L3-L4 interspace.
--- NOTE | 2020-09-24 11:19 | P.PCN_ITS ---
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
--- NOTE | 2020-09-24 11:19 | PM.PACU ---
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
--- NOTE | 2020-09-24 11:38 | ANE.PACU2 ---
Inpatient post-anesthesia follow up: Airway intact: Yes Vital signs: Temperature 97.4 F Pulse Rate 66 Respiratory Rate 18 Blood Pressure 157/73 Pulse Oximetry 95 Oxygen Delivery Me thod Room Air Oxygen Flow Rate Fraction of Inspir ed Oxygen Hydration adequate: Yes Nausea and vomiting: No Pain level: 3 Mental status: Baseline
[2020-09-24] MEDS: oxyCODONE-APAP 10-325 mg Tablet 1 TAB PO (11:58)
== END 2020-09-24 12:45 | disposition home or self-care (01) ==
PROVIDERS: PCP Family Medicine Adult Medicine; Visit Provider Orthopaedic Surgery
PROC: (CPT 63005; principal; 2020-09-24 08:30)
DX: M48.061 Spinal stenosis, lumbar region without neurogenic claudication (principal); J44.9 Chronic obstructive pulmonary disease, unspecified; I10 Essential (primary) hypertension; R78.5 Finding of other psychotropic drug in blood; E66.01 Morbid (severe) obesity due to excess calories; Z68.31 Body mass index [BMI] 31.0-31.9, adult; E78.5 Hyperlipidemia, unspecified; F41.9 Anxiety disorder, unspecified; F03.90 Unspecified dementia, unspecified severity, without behavioral disturbance, psychotic disturbance, mood disturbance, and anxiety; E03.9 Hypothyroidism, unspecified; Z82.49 Family history of ischemic heart disease and other diseases of the circulatory system
CPT/HCPCS: 63047; 72100; 76000; J0690; J1100; J1200; J2370; J2704; J2710; J3010; J3490; J7030

== ENCOUNTER → 2020-11-30 08:54 | Outpatient (BNVA) | payer MEDICARE, MEDICAID, SELFPAY | PROVIDERS: PCP Family Medicine Adult Medicine; Visit Provider Nurse Practitioner | DX: G89.29 Other chronic pain (principal); M51.36 Other intervertebral disc degeneration, lumbar region; M48.061 Spinal stenosis, lumbar region without neurogenic claudication; M47.819 Spondylosis without myelopathy or radiculopathy, site unspecified; M79.2 Neuralgia and neuritis, unspecified; Z79.891 Long term (current) use of opiate analgesic | CPT/HCPCS: 99213 ==

== ENCOUNTER → 2021-01-28 08:49 | Outpatient (BNVA) | payer MEDICARE, MEDICAID, SELFPAY | PROVIDERS: PCP Family Medicine Adult Medicine; Visit Provider Anesthesiology | DX: G89.29 Other chronic pain (principal); M51.36 Other intervertebral disc degeneration, lumbar region; M48.061 Spinal stenosis, lumbar region without neurogenic claudication; M47.819 Spondylosis without myelopathy or radiculopathy, site unspecified; Z79.891 Long term (current) use of opiate analgesic | CPT/HCPCS: 99213 ==

== ENCOUNTER → 2021-03-25 09:02 | Outpatient (BNVA) | payer MEDICARE, MEDICAID, SELFPAY | PROVIDERS: PCP Family Medicine Adult Medicine; Visit Provider Anesthesiology | DX: E03.9 Hypothyroidism, unspecified (principal); G89.29 Other chronic pain; M54.50 Low back pain, unspecified; R73.03 Prediabetes; D51.0 Vitamin B12 deficiency anemia due to intrinsic factor deficiency; M47.819 Spondylosis without myelopathy or radiculopathy, site unspecified; E78.5 Hyperlipidemia, unspecified; Z79.891 Long term (current) use of opiate analgesic; M54.59 Other low back pain; I10 Essential (primary) hypertension; Z68.38 Body mass index [BMI] 38.0-38.9, adult; Z71.89 Other specified counseling | CPT/HCPCS: 80053; 83036; 84443; 85025; 99213 ==

== ENCOUNTER → 2021-09-23 09:03 | Outpatient (BNVA) | payer MEDICARE, MEDICAID, SELFPAY | PROVIDERS: PCP Family Medicine Adult Medicine; Visit Provider Family Medicine Adult Medicine | DX: I10 Essential (primary) hypertension (principal); E78.5 Hyperlipidemia, unspecified; R73.03 Prediabetes; D51.0 Vitamin B12 deficiency anemia due to intrinsic factor deficiency; E03.9 Hypothyroidism, unspecified; Z98.890 Other specified postprocedural states; G89.29 Other chronic pain; M51.36 Other intervertebral disc degeneration, lumbar region; M48.061 Spinal stenosis, lumbar region without neurogenic claudication; M47.818 Spondylosis without myelopathy or radiculopathy, sacral and sacrococcygeal region; J44.9 Chronic obstructive pulmonary disease, unspecified; K21.9 Gastro-esophageal reflux disease without esophagitis | CPT/HCPCS: 80053; 83036; 84443; 85025 ==

== ENCOUNTER 2021-09-26 06:00 | Outpatient (RCR) | payer MEDICARE, MEDICAID, SELFPAY | END 2021-10-26 23:59 | disposition home or self-care (01) | LOC: GPT 06:00 | PROVIDERS: PCP Family Medicine Adult Medicine; Referring Provider Orthopaedic Surgery; Visit Provider Orthopaedic Surgery | DX: M54.9 Dorsalgia, unspecified (principal) | CPT/HCPCS: 97110; 97112; 97163; 97535 ==

== ENCOUNTER → 2021-09-29 08:26 | Outpatient (BNVA) | payer MEDICARE, MEDICAID, SELFPAY | PROVIDERS: PCP Family Medicine Adult Medicine; Visit Provider Orthopaedic Surgery | DX: M54.50 Low back pain, unspecified (principal) | CPT/HCPCS: 99213; 99214 ==

== ENCOUNTER 2021-10-27 06:00 | Outpatient (RCR) | payer MEDICARE, MEDICAID, SELFPAY | END 2021-11-25 23:59 | disposition home or self-care (01) | LOC: GPT 06:00 | PROVIDERS: PCP Family Medicine Adult Medicine; Visit Provider Orthopaedic Surgery | DX: M48.062 Spinal stenosis, lumbar region with neurogenic claudication (principal); M54.50 Low back pain, unspecified; G89.29 Other chronic pain | CPT/HCPCS: 97110; 97112; 97116; 97140; 97164 ==

== ENCOUNTER 2021-11-26 06:00 | Outpatient (RCR) | payer MEDICARE, MEDICAID, SELFPAY | END 2021-12-26 23:59 | disposition home or self-care (01) | LOC: GPT 06:00 | PROVIDERS: PCP Family Medicine Adult Medicine; Visit Provider Orthopaedic Surgery | DX: M54.9 Dorsalgia, unspecified (principal) | CPT/HCPCS: 97110; 97112; 97116; 97140; 97535 ==

== ENCOUNTER 2021-12-06 12:45 | Emergency (ER) | payer MEDICARE, MEDICAID, SELFPAY ==
[2021-12-06 12:50] VITALS: BP 183/90; PULSE 81; RESP 18; TEMP 36.7; O2SAT 96; BMI 35.2
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
== END 2021-12-06 14:52 | disposition home or self-care (01) ==
PROVIDERS: Emergency Provider Physician Assistant; PCP Family Medicine Adult Medicine
DX: S13.4XXA Sprain of ligaments of cervical spine, initial encounter (principal); I12.9 Hypertensive chronic kidney disease with stage 1 through stage 4 chronic kidney disease, or unspecified chronic kidney disease; N18.2 Chronic kidney disease, stage 2 (mild); J44.9 Chronic obstructive pulmonary disease, unspecified; F03.90 Unspecified dementia, unspecified severity, without behavioral disturbance, psychotic disturbance, mood disturbance, and anxiety; E78.5 Hyperlipidemia, unspecified; V89.2XXA Person injured in unspecified motor-vehicle accident, traffic, initial encounter
CPT/HCPCS: 72040; 99283

== ENCOUNTER → 2021-12-15 12:05 | Outpatient (BNVA) | payer MEDICARE, MEDICAID, SELFPAY | PROVIDERS: PCP Family Medicine Adult Medicine; Visit Provider Emergency Medicine | DX: M79.621 Pain in right upper arm (principal) | CPT/HCPCS: 73060 ==

== ENCOUNTER → 2022-01-12 07:32 | Outpatient (BNVA) | payer MEDICARE, MEDICAID, SELFPAY | PROVIDERS: PCP Family Medicine Adult Medicine; Visit Provider Orthopaedic Surgery | DX: M54.9 Dorsalgia, unspecified (principal); Z98.890 Other specified postprocedural states | CPT/HCPCS: 99214 ==

== ENCOUNTER 2022-08-16 21:17 | Emergency (ER) | payer MEDICARE, MEDICAID, SELFPAY ==
[2022-08-16 21:25] VITALS: BP 177/98; PULSE 71; RESP 18; TEMP 36.6; O2SAT 96; BMI 36.0
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
--- NOTE | 2022-08-16 21:39 | XRR_ITS ---
PROCEDURE INFORMATION: Exam: XR Left Tibia and Fibula Exam date and time: 08/16/2022 8:49 PM Age: 71 years old Clinical indication: Injury or trauma; Fall TECHNIQUE: Imaging protocol: Radiologic exam of the left tibia and fibula. Views: 2 views. COMPARISON: No relevant prior studies available. FINDINGS: Bones/joints: Osseous structures are intact. No fracture or malalignment. Visualized joint surfaces are preserved. Soft tissues: Unremarkable. XR/XR tibia fibula LT 2V [id number] IMPRESSION: Negative exam. No acute bony abnormalities.
--- NOTE | 2022-08-16 21:39 | XRR_ITS ---
PROCEDURE INFORMATION: Exam: XR Right Tibia and Fibula Exam date and time: 08/16/2022 8:54 PM Age: 71 years old Clinical indication: Injury or trauma; Fall TECHNIQUE: Imaging protocol: Radiologic exam of the right tibia and fibula. Views: 2 views. COMPARISON: No relevant prior studies available. FINDINGS: Bones/joints: Osseous structures are intact. No fracture or malalignment. Visualized joint surfaces are preserved. Soft tissues: Unremarkable. XR/XR tibia fibula RT 2V [id number] IMPRESSION: Negative exam. No acute bony abnormalities.
[2022-08-16] MEDS: naproxen 500 mg Tablet PO (21:46)
== END 2022-08-16 22:15 | disposition home or self-care (01) ==
PROVIDERS: Emergency Provider Nurse Practitioner Family; PCP Family Medicine Adult Medicine
DX: S80.12XA Contusion of left lower leg, initial encounter (principal); S80.11XA Contusion of right lower leg, initial encounter; V09.00XA Pedestrian injured in nontraffic accident involving unspecified motor vehicles, initial encounter
CPT/HCPCS: 73590; 99283

== ENCOUNTER → 2023-01-11 09:51 | Outpatient (BNVA) | payer MEDICARE, MEDICAID, SELFPAY | PROVIDERS: PCP Family Medicine Adult Medicine; Visit Provider Obstetrics & Gynecology | DX: N81.10 Cystocele, unspecified (principal); N81.6 Rectocele; R10.2 Pelvic and perineal pain | CPT/HCPCS: 76830; 76856 ==

== ENCOUNTER → 2023-02-22 13:58 | Outpatient (BNVA) | payer MEDICARE, MEDICAID, SELFPAY | PROVIDERS: PCP Family Medicine Adult Medicine; Visit Provider Family Medicine Adult Medicine | DX: R07.89 Other chest pain (principal) | CPT/HCPCS: 71046 ==

== ENCOUNTER → 2023-03-15 09:50 | Outpatient (BNVA) | payer MEDICARE, MEDICAID, SELFPAY | PROVIDERS: PCP Family Medicine Adult Medicine; Visit Provider Family Medicine Adult Medicine | DX: M19.021 Primary osteoarthritis, right elbow (principal); M19.011 Primary osteoarthritis, right shoulder; M25.511 Pain in right shoulder; M25.521 Pain in right elbow | CPT/HCPCS: 73030; 73070 ==

== ENCOUNTER → 2023-04-06 10:00 | Outpatient (BNVA) | payer MEDICARE, MEDICAID, SELFPAY | PROVIDERS: PCP Family Medicine Adult Medicine; Visit Provider Family Medicine Adult Medicine | DX: E78.5 Hyperlipidemia, unspecified (principal); I10 Essential (primary) hypertension; N18.2 Chronic kidney disease, stage 2 (mild); R73.03 Prediabetes; E03.9 Hypothyroidism, unspecified; E66.9 Obesity, unspecified | CPT/HCPCS: 80053; 80061; 83036; 84443; 85025 ==

== ENCOUNTER 2023-04-17 11:53 | Observation (INO) | payer MEDICARE, MEDICAID, SELFPAY ==
--- NOTE | 2023-04-12 12:06 | ECG_ITS ---
[facility] Test Date: 2023-04-12 Pat Name: Georgiana Mayo Department: Room: Gender: Female Bolter Helper: : 1950 Requested By: Felix Ellsworth Order Number: [id number] Rudy MD: Max Sagastume M.D. Measurements Intervals Goodell Rate: 70 P: -56 LA: 123 QRS: 2 QRSD: 74 T: 16 QT: 385 QTc: 417 Interpretive Statements SINUS RHYTHM WITH SINUS ARRHYTHMIA LOW QRS VOLTAGE IN PRECORDIAL LEADS [QRS DEFLECTION < 1.0 mV IN CHEST LEADS] Compared to ECG 08/01/2019 18:21:58 Low QRS voltage now present T-wave abnormality no longer present Possible ischemia no longer present Electronically Signed On 04-12-2023 17:53:43 WATERSHED ENGINEER by Max Sagastume M.D. [email or web address]
[2023-04-12 12:45] LABS: Add Urine Microscopic? NO; Charge for UA Resulting for Rev
[2023-04-12 12:53] LABS: Blood Urine Neg (Negative); Glucose Urine UA Norm (Normal); Ketones Urine Negative (Negative); Leukocyte Esterase Urine Negative (Negative); Nitrate Urine Negative (Negative); Protein Urine Neg (Negative); Specific Gravity, Urine 1.025 (1.005-1.030); Sulfosalicylic Acid Urine Negative (Negative); Urine Appearance Clear (CLEAR); Urine Color Yellow (Yellow); Urobilinogen Urine 1 mg/dL (Negative); pH Urine 5 (5-7)
[2023-04-12 13:29] LABS: Bilirubin Urine Neg (Negative)
--- NOTE | 2023-04-12 14:07 | P.ANESASSM_ITS ---
Pre-Anesthetic Assessment Height/Weight: Height 1.7 m Operation Date: 04/17/23 09:15 Proposed Procedures p Anterior and posterior colporrhaphy 86374, Single incision sling 07278 N81.10,N81.6(Not Applicable) - Nickolas Marquez MD s Posterior Repair Posterior Colporrhaphy(Not Applicable) - Nickolas Marquez MD s Sling Single Incision Sling(Not Applicable) - Nickolas Marquez MD Familial anesthetic complications: none Was Beta Carol taken within 24 hours: N/A Was Clonidine taken within 24 hours: N/A Social No alcohol and No tobacco Exam alert, oriented x 3, clear to auscultation bilaterally and regular rate & rhythm Airway Submandibular: within normal limits Cervical ROM: within normal limits Mallampati: Class II Dentition: false Pulmonary Asthma CV/HEM Anemia and Hypertension Chronic Renal Insufficiency GI Gastroesophageal Reflux Disease Metabolic Morbid Obesity and Thyroid Disease chronic steroid Musc/skel Lower Back Pain and Osteoarthritis/DJD Neuropsych Anxiety, Depression and Neuropathy Anesthetic Plan ASA status: 3 Anesthesia: General Medications/Allergies Home Medications Medication Instructions Recorded Confirmed Last Taken Type trazodone 50 mg tablet 50 mg PO BEDTIME PRN sleep 90 days 07/02/20 04/12/23 1 Day Ago Rx #90 tabs ~04/11/23 Compression Stockings #2 ea 12/24/21 04/09/23 Unknown Rx albuterol sulfate 2.5 mg/3 mL 2.5 mg (3 mL) inhalation BID PRN 06/30/22 04/12/23 Unknown Rx (0.083 %) solution for nebulization shortness of breath or wheezing 30 days #180 mL ferrous sulfate 142 mg (45 mg 142 mg PO DAILY #30 tabs 06/30/22 04/12/23 1 Day Ago Rx iron) tablet,extended release ~04/11/23 pantoprazole 40 mg tablet,delayed See Rx Instructions .Route 06/30/22 04/12/23 1 Day Ago Rx release .COMPLEX #90 tabs ~04/11/23 hydrochlorothiazide 25 mg tablet See Rx Instructions .Route 08/25/22 04/12/23 1 Day Ago Rx .COMPLEX #90 tabs ~04/11/23 atorvastatin 20 mg tablet 20 mg PO DAILY fats & cholesterol 10/25/22 04/12/23 1 Day Ago Rx #90 tabs ~04/11/23 oxybutynin chloride 10 mg 10 mg PO DAILY urine leaking #30 11/10/22 04/12/23 1 D ay Ago Rx tablet,extended release 24 hr tabs ~04/11/23 polyethylene glycol 3350 17 17 g PO DAILY #119 grams 11/10/22 04/12/23 Unknown Rx gram/dose oral powder (Miralax) albuterol sulfate 90 mcg/actuation 2 inh inhalation Q6H PRN shortness 12/21/22 04/12/23 Unknown Rx aerosol inhaler of breath or wheezing #18 grams budesonide-formoterol HFA 160 2 inh inhalation BID breathing 30 12/21/22 04/12/23 1 Day Ago Rx mcg-4.5 mcg/actuation aerosol days #10.2 grams ~04/11/23 inhaler (Symbicort) citalopram 10 mg tablet (Celexa) 10 mg PO DAILY anxiety #30 tabs 12/21/2204/12 1 Day Ago Rx ~04/11/23 levothyroxine 50 mcg tablet See Rx Instructions .Route 12/21/22 04/12/23 1 Day Ago Rx .COMPLEX #90 tabs ~04/11/23 ergocalciferol (vitamin D2) 1,250 1,250 mcg PO Q7D 90 days #13 caps 01/31/23 04/12/23 1 Day Ago Rx mcg (50,000 unit) capsule ~04/11/23 meloxicam 15 mg tablet 15 mg PO DAILY PRN pain #30 tabs 02/22/23 04/12/23 1 Day Ago Rx ~04/11/23 triamcinolone acetonide 0.1 % 1 applic topical BID PRN rash #80 03/13/23 04/12/23 Unknown Rx topical cream grams guaifenesin 600 mg tablet, 600 mg PO BID cough #60 tabs 03/15/23 04/12/23 Unk nown Rx extended release 12 hr oxycodone-acetaminophen 5 mg-325 1 tab PO TID PRN pain 30 days #90 03/22/23 04/12/23 1 Day Ago Rx mg tablet (Percocet) tabs ~04/11/23 azelastine 137 mcg (0.1 %) nasal 2 spray intranasal BID #30 mL 04/03/23 04/12/23 Unknown Rx spray aerosol cetirizine 10 mg tablet (Allergy 10 mg PO DAILY PRN Allergy 04/06/23 04/12/23 1 Day Ago Rx Relief (cetirizine)) Symptoms 30 days #90 tabs ~04/11/23 doxycycline hyclate 100 mg capsule 100 mg PO BID 30 days #60 caps 04/06/23 04/12/23 1 Day Ago Rx ~04/11/23 fluticasone propionate 50 2 spray intranasal BID cough #16 04/06/23 04/12/23 Unknown Rx mcg/actuation nasal grams spray,suspension (Flonase Allergy Relief) hydroxyzine pamoate 25 mg capsule 25 mg PO Q6H PRN anxiety #30 caps 04/06/23 04/12/23 Unknown Rx prednisone 20 mg tablet 60 mg (3 x 20 mg) PO DAILY #15 tabs 04/06/23 04/12/23 1 Day Ago Rx ~04/11/23 clotrimazole 1 % topical cream See Rx Instructions .Route 04/12/23 Unknown Rx (Antifungal (clotrimazole)) .COMPLEX #3 ea Allergies Allergy/AdvReac Type Severity Reaction Status Date / Time codeine Allergy Intermediate ALGY-Rash Verified 04/12/23 11:30 hydrocodone Allergy Intermediate ALGY-Rash Verified 04/12/23 11:30 gabapentin Allergy dizzy Verified 04/12/23 11:30 PFSH Anesthesia Medical History Chronic bronchitis with acute exacerbation Injury of right shoulder and upper arm Left-sided chest wall pain Obesity (BMI 30-39.9) Urinary incontinence, mixed CKD (chronic kidney disease) stage 2, GFR 60-89 ml/min Dementia Spinal stenosis of lumbar region [facility] SIJ joint inflammation, peripheral neuropathy, Rt hip pain Allergic rhinitis due to allergen Peripheral neuropathy Prediabetes Allergic reaction to bee sting GERD (gastroesophageal reflux disease) She has acid reflux and is taking pantoprazole 40 mg daily this is controlling her symptoms well. Insomnia COPD (chronic obstructive pulmonary disease) Hyperlipidemia Hypothyroidism She has hypothyroidism and her last TSH was 2.3 and 02/03/2020 and she is on levothyroxine 50 MCG's daily and will recheck her TSH at least yearly. Depression Anxiety Hypertension Encounter for long-term opiate analgesic use Surgical History History of lumbar surgery p MIS lumbar spine decompression stenosis L3/[address] Menjivar 09/24/20 History of surgery on upper extremity Family History Mother Hypertension Father Hypertension Denies family history of Colon cancer Ovarian cancer Diabetes Heart disease Hypercholesteremia Breast cancer Uterine cancer Thyroid disease Stroke Social History Substance/Drug Use: never Data Anesthesia Urine 04/12/23 Range/Units 11:50 Urine Color Yellow (Yellow) Urine Appearance Clear (CLEAR) Urine pH 5 (5-7) Ur Specific [place] 1.025 (1.005-1.030) Urine Protein Neg (Negative) Urine Glucose (UA) Norm (Normal) Urine Ketones Negative (Negative) Urine Nitrate Negative (Negative) Urine Bilirubin Neg (Negative) Ur Leukocyte Esterase Negative (Negative) Cardiac Studies: No Data to Display
[2023-04-17] VITALS (14 sets, daily range): BP systolic 132–176; BP diastolic 71–98; PULSE 58–77; RESP 16–17; TEMP 36.2–36.6; O2SAT 95–100; BMI 36.9
[2023-04-17] MEDS: sodium chloride 0.9% 1,000 ML 30 ML IV (08:38)
[2023-04-17] MEDS: scopolamine 1.5 Patch 1 PATCH TRANSDERMA (08:43)
[2023-04-17] MEDS: enoxaparin 30 mg/0.3 mL Syringe SUBCUT (08:44)
--- NOTE | 2023-04-17 09:30 | W.PM.OPSUD ---
Surgery/Procedure H&P Update DATE OF PROCEDURE: April 17, 2023 DATE H&P PERFORMED: 04/09/23 H&P UPDATE INFORMATION: I have reviewed H&P completed within last 30 days, I have examined patient prior to procedure and No changes to prior documentation PREOP DIAGNOSIS: Cystocele, rectocele, mixed incontinence PLANNED PROCEDURE: Operation Date: 04/17/23 10:15 Proposed Procedures p Anterior and posterior colporrhaphy 21770, Single incision sling 42519 N81.10,N81.6(Not Applicable) - Nickolas Marquez MD s Posterior Repair Posterior Colporrhaphy(Not Applicable) - Nickolas Marquez MD s Sling Single Incision Sling(Not Applicable) - Nickolas Marquez MD
--- NOTE | 2023-04-17 09:37 | P.ANESUD_ITS ---
Pre-Anesthetic Update Pre-Anesthetic Assessment: Date of Surgery/Procedure: 04/17/23 Preop Tamera gnosis: Cystocele, rectocele, mixed incontinence Proposed Procedure: Operation Date: 04/17/23 10:15 Proposed Procedures p Anterior and posterior colporrhaphy 55431, Single incision sling 25317 N81.10,N81.6(Not Applicable) - Nickolas Marquez MD s Posterior Repair Posterior Colporrhaphy(Not Applicable) - Nickolas Marquez MD s Sling Single Incision Sling(Not Applicable) - Nickolas Marquez MD Any changes to Pre-Anesthetic Assessment?: No Last Intake: Intake Last Liquid Date 04/16/23 Last Liquid Time 23:28 Last Solid Date 04/16/23 Last Solid Time 23:28 Vitals: Temperature 98 F 04/17/23 08:22 Temperature Source Temporal Artery S can 04/17/23 08:22 Pulse Rate 73 04/17/23 08:22 Respiratory Rate 16 04/17/23 08:22 Blood Pressure 176/98 04/17/23 08:22 Blood Pressure Lucia n 124 04/17/23 08:22 Pulse Oximetry 96 04/17/23 08:22 Oxygen Delivery Me thod Room Air 04/17/23 08:22 Exam: Pre-Anes Outpt Exam: alert, oriented x 3, clear to auscultation bilaterally and regular rate & rhythm Cardiac Studies: No Data to Display
[2023-04-17] MEDS: ceFOXitin 2,000 MG in sodium chloride 0.9% (plus) 50 ML 100 MG IV (09:48)
[2023-04-17] MEDS: lidocaine-epi 2% PF 1:200,000 20 mL SDV INJECTION (10:32)
--- NOTE | 2023-04-17 11:49 | PM.OP ---
Operative Report Date of procedure: April 17, 2023 Pre-op diagnosis: Cystocele Rectocele Mixed incontinence Post-op findings: Cystocele stage 2 Rectocele stage 3 Good support from previously placed midurethral sling Procedure done: Anterior colporrhaphy augmented with allograft Posterior colporrhaphy Surgeon: Nickolas Marquez MD Estimated blood loss (mL): 50 IV fluids (mL): 1,400 Urine output (mL): 100 Complications: None Findings: Cystocele stage II, rectocele stage III, good support from previous mid urethral sling Procedure: After obtaining informed consent, the patient was taken to the operating room and placed in the supine position, given general anesthesia, and prepped and draped in sterile fashion. The abdomen, vulva and vagina were prepped and draped in a sterile manner. A time out procedure was performed. The vaginal mucosa was then injected in the midline with normal saline. The vaginal mucosa was scored in the midline with the Bovie approximately 1 cm medial to the urethral meatus to 1 cm distal to the vaginal cuff. This vaginal mucosa was then undermined and then incised in the midline with the Metzenbaum scissors. The lateral aspects of the vaginal mucosa were then grasped with the Allis clamps and the vaginal mucosa was then dissected off the underlying fascia with the Metzenbaum scissors. Again, there was noted to be quite a bit of oozing at the incision, which was controlled with cautery. After adequate dissection was performed, bilaterally. An Coloplast dermis allograft modified at time of application to fit spacea, 3 x 3 cm piece . The allograft placed in front of cystocele ready to be implanted facing the vagina mucosa. Suture is placed at distal end of graft and placed towards vaginal cuff. Final suture is placed on proximal portion of the graft to complete the placement overlying the bladder. Then Interrupted vertical mattress sutures of 0 Vicryl were used to elevate the cystocele superiorly. The excessive vaginal mucosa was then trimmed with the Metzenbaum scissors and the vaginal mucosa was then reapproximated in the running interlocking fashion with 2-0 Vicryl. A posterior repair was performed next. An incision was made across the introitus. Metzenbaum scissors were used to tunnel beneath posterior vaginal mucosa until the apex of the rectocele bulge was reached. At this point, the rectum was from the posterior vaginal mucosa using sharp and blunt dissection, and the rectal bulge imbricated in the midline with interrupted sutures of 2-0 vicryl suture. Levator ani muscles on either side were approximated in the midline with interrupted 0 Vicryl sutures. Excess posterior vaginal mucosa was excised, and the vaginal episiotomy was repaired by approximating the posterior vaginal mucosa with a suture of Vicryl #0. Excellent hemostasis was obtained. A vaginal pack is placed overnight as postoperative support for the vaginal tissues after graft placement and closure of vaginal incisions. Sponge, lap, needle, and instrument counts were correct times three. The patient was taken to the recovery room, awake and in stable condition.
--- NOTE | 2023-04-17 12:15 | ANE.PACU2 ---
Inpatient post-anesthesia follow up: Airway intact: Yes Vital signs: Temperature 97.8 F Pulse Rate 58 Respiratory Rate 17 Blood Pressure 165/85 Pulse Oximetry 95 Oxygen Delivery Me thod Room Air Oxygen Flow Rate 6 Fraction of Inspir ed Oxygen Hydration adequate: Yes Nausea and vomiting: No Pain level: 1 Mental status: Baseline
[2023-04-17] MEDS: dextrose 5%-lactated ringers 1,000 ML 125 ML IV ×2 (13:10→21:17)
[2023-04-17] MEDS: ketorolac 30 mg/mL INJ IVP ×2 (13:10→19:23)
[2023-04-17] MEDS: doxycycline 100 mg Tablet PO (19:24)
[2023-04-17] MEDS: docusate sodium 100 mg Capsule PO (19:24)
[2023-04-17] MEDS: guaiFENesin 600 mg Tablet PO (19:24)
[2023-04-17] MEDS: clotrimazole 1% cream 30 gm TOPICAL (19:25)
[2023-04-17] MEDS: triamcinolone 0.1% cream 15 gm 1 APPLIC TOPICAL (19:26)
--- NOTE | 2023-04-17 21:27 | PC.NURSE ---
Patient ambulated around labor and delivery floor with standby assistance one time. Pt did use a walker as this is what she uses at home if she doesn't have her cane. Pt was stable and ambulated without difficulty.
[2023-04-18] MEDS: ketorolac 30 mg/mL INJ IVP (01:09)
[2023-04-18] MEDS: HYDROcodone-acetaminophen 5-325 mg Tablet PO (04:21)
[2023-04-18 04:41] VITALS: BP 135/81; PULSE 71; RESP 17; TEMP 36.4
--- NOTE | 2023-04-18 05:42 | PC.NURSE ---
Vaginal packing removed at approximately 0515. Pt tolerated well.
[2023-04-18 05:54] LABS: Hematocrit 38.5 % (36-47); Mean Corpuscular HGB Conc 32.5 g/dL (30-55); Mean Corpuscular Hemoglobin 29.1 pg (27-33); Mean Corpuscular Volume 89.7 fl (85-98); Mean Platelet Volume 11.8 fL (7.4-10.4); Platelet Count 264 10^3/cmm (157-399); Red Blood Count 4.29 10^6/uL (3.85-5.65); Red Cell Distribution Width 14.5 % (12.1-15.1); White Blood Count 9.76 10^3/uL (3.29-11.43)
[2023-04-18] MEDS: oxybutynin chloride XL 5 MG TABLET 10 MG PO (09:27)
--- NOTE | 2023-04-18 09:27 | P.DS_ITS ---
Discharge Providers FACILITIES PAINTER Date of Admission: 04/17/23 11:53 Date of Discharge: 04/18/23 Attending Provider at Admission: Nickolas Marquez MD Attending Provider at Discharge: Nickolas Marquez MD Primary Care Provider: Delmar Anand MD Reason for Visit Reason for Visit: N81.10, N81.6 Hospital Course Hospital Course Mrs. Mayo 72-year-old female with a history of previous bladder repair and developed cystocele and rectocele. She was admitted for planned anterior colporrhaphy and posterior colporrhaphy. The procedures were performed without complication. She is afebrile and hemodynamically stable postoperative day 1. Tolerating diet well. Ambulating without difficulty. She was counseled regarding pelvic rest for 6 weeks (no sex, no tampons, no vaginal douches). Return to the emergency room if any fever, increased bleeding or pain. Physical Exam Narrative: GA: Alert and oriented ?3. HEENT: WNL. Heart: Regular rate and rhythm. Lungs: Clear to auscultation bilaterally. Abdomen: Bowel sounds present, nontender, minimal tenderness, incision clean and dry, no redness, pain or edema. INSPECTOR FIREARMS: spotting bleeding. Extremities: No edema, no cyanosis, no calves pain. Urinary Catheter Management: [place]: Cath Placed During This Visit: yes, but has since been removed by the nurse Reason for Continuing Indwelling Catheter: Decision to DC Catheter Urinary Catheter Date of Insertion: 04/17/23 Urinary Catheter Time of Insertion: 10:11 Date Urinary Catheter Removed: 04/18/23 Time Urinary Catheter Discontinued: 05:15 History History History 6 Term 4 0 Miscarriages/Ectopic 2 Living Children 4 Discharge Data Studies Completed and Pending Laboratory Results WBC 9.76 10^3/uL (3.29-11.43) 04/18/23 05:00 RBC 4.29 10^6/uL (3.85-5.65) 04/18/23 05:00 Hgb 12.50 g/dL (11.27-16.99) 04/18/23 05:00 Hct 38.5 % (36-47) 04/18/23 05:00 MCV 89.7 fl (85-98) 04/18/23 05:00 MCH 29.1 pg (27-33) 04/18/23 05:00 MCHC 32.5 g/dL (30-55) 04/18/23 05:00 RDW 14.5 % (12.1-15.1) 04/18/23 05:00 Plt Count 264 10^3/cmm (157-399) 04/18/23 05:00 MPV 11.8 fL (7.4-10.4) H 04/18/23 05:00 Urine Color Yellow (Yellow) 04/12/23 11:50 Urine Appearance Clear (CLEAR) 04/12/23 11:50 Urine pH 5 (5-7) 04/12/23 11:50 Ur Specific [place] 1.025 (1.005-1.030) 04/12/23 11:50 Urine Protein Neg (Negative) 04/12/23 11:50 Urine Glucose (UA) Norm (Normal) 04/12/23 11:50 Urine Ketones Negative (Negative) 04/12/23 11:50 Urine Blood Neg (Negative) 04/12/23 11:50 Urine Nitrate Negative (Negative) 04/12/23 11:50 Urine Bilirubin Neg (Negative) 04/12/23 11:50 Prot Sulfosalicylic Acd Negative (Negative) 04/12/23 11:50 Urine Urobilinogen 1 mg/dL (Negative) H 04/12/23 11:50 Ur Leukocyte Esterase Negative (Negative) 04/12/23 11:50 Blood Type A Positive 04/17/23 08:25 Rho(D) Type Rh positive 04/17/23 08:25 Antibody Screen Negative 04/17/23 08:25 Vitals Last Vital Signs Temp 97.5 F L 04/18/23 04:41 Pulse 71 04/18/23 04:41 Resp 17 04/18/23 04:41 BP 135/81 04/18/23 04:41 Pulse Ox 95 04/17/23 12:15 O2 Del Method Room Air 04/18/23 04:41 O2 Flow Rate 6 04/17/23 11:55 Results Labs OB ([facility]): Blood Type A Positive 04/17/23 Antibody Screen Negative 04/17/23 Hct 38.5 % (36-47) 04/18/23 Hgb 12.50 g/dL (11.27-16.99) 04/18/23 Rho(D) Type Rh positive 04/17/23 Plt Count 264 10^3/cmm (157-399) 04/18/23 TSH 2.77 uIU/mL (0.27-4.20) 04/06/23 Hemoglobin A1c 6.9 % (4.0-6.0) H 04/06/23 Urine Opiates Screen Negative ng/mL (Negative) 07/04/19 Ur Barbiturates Screen Negative ng/mL (Negative) 07/04/19 Ur Phencyclidine Scrn Negative ng/mL (Negative) 07/04/19 Ur Amphetamines Screen Negative ng/mL (Negative) 07/04/19 U Benzodiazepines Scrn Negative ng/mL (Negative) 07/04/19 Urine Cocaine Screen Negative ng/mL (Negative) 07/04/19 U Marijuana (THC) Screen Negative ng/mL (Negative) 07/04/19 Micro Urine Specimen 08/22/19 Discharge Plan Discharge Patient Disposition: Home Condition: Stable Prescriptions: [place] Oil Light Oil See Rx Instructions .ROUTE .COMPLEX Qty: 500 0RF Rx Instructions: 1 tsp qhs acetaminophen 325 mg capsule 325 mg PO Q4H PRN (Reason: fever or pain) Qty: 60 0RF ibuprofen 800 mg tablet 800 mg PO TID PRN (Reason: pain) Qty: 60 0RF Continued trazodone 50 mg tablet 50 mg PO BEDTIME PRN (Reason: sleep) 90 Days Qty: 90 3RF (DME) Compression Stockings See Rx Instructions .Route .MEDSUPPLY Qty: 2 0RF Rx Instructions: To be sized by pharmacy/store. albuterol sulfate 2.5 mg /3 mL (0.083 %) solution for nebulization 2.5 mg INHALATION BID PRN (Reason: shortness of breath or wheezing) 30 Days Qty: 180 5RF ferrous sulfate 142 mg (45 mg iron) tablet extended release 142 mg PO DAILY Qty: 30 5RF guaifenesin 600 mg tablet extended release 12hr 600 mg PO BID Qty: 60 0RF citalopram [Celexa] 10 mg tablet 10 mg PO DAILY Qty: 30 5RF budesonide-formoterol [Symbicort] 160-4.5 mcg/actuation HFA aerosol inhaler 2 inh inhalation BID 30 Days Qty: 10.2 5RF albuterol sulfate 90 mcg/actuation HFA aerosol inhaler 2 inh inhalation Q6H PRN (Reason: shortness of breath or wheezing) Qty: 18 5RF azelastine 137 mcg (0.1 %) aerosol,spray 2 spray intranasal BID Qty: 30 2RF Rx Instructions: administer into each nostril cetirizine [Allergy Relief (cetirizine)] 10 mg tablet 10 mg PO DAILY PRN (Reason: Allergy Symptoms) 30 Days Qty: 90 2RF doxycycline hyclate 100 mg capsule 100 mg PO BID 30 Days Qty: 60 0RF fluticasone propionate [Flonase Allergy Relief] 50 mcg/actuation spray,suspension 2 spray intranasal BID Qty: 16 3RF Rx Instructions: administer into each nostril hydroxyzine pamoate 25 mg capsule 25 mg PO Q6H PRN (Reason: anxiety) Qty: 30 1RF prednisone 20 mg tablet 60 mg PO DAILY Qty: 15 0RF meloxicam 15 mg tablet 15 mg PO DAILY PRN (Reason: pain) Qty: 30 3RF atorvastatin 20 mg tablet 20 mg PO DAILY Qty: 90 3RF oxybutynin chloride 10 mg tablet extended release 24hr 10 mg PO DAILY Qty: 30 5RF polyethylene glycol 3350 [Miralax] 17 gram/dose powder 17 g PO DAILY Qty: 119 5RF ergocalciferol (vitamin D2) 1,250 mcg (50,000 unit) capsule 1,250 mcg PO Q7D 90 Days Qty: 13 3RF triamcinolone acetonide 0.1 % cream 1 applic topical BID PRN (Reason: rash) Qty: 80 2RF Rx Instructions: Use for 2 weeks and then off for 2 weeks and can repeat oxycodone-acetaminophen [Percocet] 5-325 mg tablet 1 tab PO TID PRN (Reason: pain) 30 Days Qty: 90 0RF Rx Instructions: fill on or after 30 day interval clotrimazole [Antifungal (clotrimazole)] 1 % cream See Rx Instructions .ROUTE .COMPLEX Qty: 3 3RF Dose Instruction: APPLY ONE (1) APPLICATION TOPICALLY 3 TIMES DAILY FOR YEAST SKIN INFECTIONS Rx Instructions: APPLY ONE (1) APPLICATION TOPICALLY 3 TIMES DAILY FOR YEAST SKIN INFECTIONS levothyroxine 50 mcg tablet 50 mcg PO DAILY pantoprazole 40 mg tablet,delayed release (DR/EC) 40 mg PO DAILY hydrochlorothiazide 25 mg tablet 25 mg PO DAILY Discharge Orders: Discharge Order (Routine); Ordered 04/18/23 Ordered By: Nickolas Marquez Discharge Diet: Soft Mechanical Discharge Activity: Limit activity as instructed Patient Instructions: Anterior Vaginal Repair (GEN), Posterior Vaginal Repair (GEN) Activity Restrictions/Additional Instructions: 1. Please call [facility] on next working day to make your post-operative appointment in 2 weeks. 2. Please stay home until you come back to the clinic on first post- hospatilization check up. 3. Please follow instructions on your medications CAREFULLY. 4. If you have abdominal incision, do not cover it unless dressing is necessary because of drainage. OK to shower, but avoid bath. Leave steri-strips until they fall off. If they are still on one week after surgery, you may remove them. 5. If you had vaginal surgery or vaginal repair, Dr. Marquez may instruct you to take SITZ bath. 6. Yellow, blood tinged odorous vaginal discharge is usually normal after hysterectomy or vaginal surgeries. 7. No SEXUAL INTERCOURSE, tampons, or douches until you are completely released from the post-operative care. 8. Avoid constipation by eating right and maybe using some Metamucil or Milk of Magnesia. 9. All prescription refills are given during the working hours. Please do no wait till it runs out. Call the clinic at [phone] before your medication runs out. The clinic will get in touch with your doctor to prescribe medications if necessary. 10. Please remain within 40 mile radius from our hospital because emergencies do happen now and then during the post-operative period. 11. If you have stairs at home, take one step at a time slowly and minimize the number of trips. It helps to stay in one floor for the next few days. No lifting except what you can lift by one hand until you are released from the post-operative care. 12. Driving is discouraged until you are well healed. It may be 3-4 weeks before you feel strong enough to drive. You should be able to turn and look through the rear window without pain and you should be able to push the brake pedal very hard without pain before you drive. No fast rules, but SAFETY should be your primary concern. DO NOT drive if you are on sedating medications such as narcotics. 13. Call the clinic (during working hours) to make urgent appointment or go to the Emergency room, if any of the following occurs: i. Vaginal bleeding becomes heavy, more than a period. ii. Incision becomes red and sore, or drains pus. iii. Your TEMPERATURE is over 100.4F or you have chill. iv. IV site becomes red and swollen (a little ``knot?? is usually OK) v. Persistent nausea and vomiting vi. Persistent constipation or diarrhea vii. Rash or allergic reaction to medications. Discharge Attestations FACILITIES PAINTER Time Spent in Discharge Care*: greater than 30 min Coding Level of Care Code Acute Code for Chg Fwd
[2023-04-18] MEDS: guaiFENesin 600 mg Tablet PO (09:28)
[2023-04-18] MEDS: docusate sodium 100 mg Capsule PO (09:28)
[2023-04-18] MEDS: levothyroxine 50 mcg Tablet PO (09:28)
[2023-04-18] MEDS: pantoprazole DR 40 mg Tablet PO (09:28)
[2023-04-18] MEDS: atorvastatin 40 mg Tablet PO (09:28)
[2023-04-18] MEDS: doxycycline 100 mg Tablet PO (09:28)
[2023-04-18] MEDS: citalopram 20 mg Tablet 10 MG PO (09:28)
[2023-04-18] MEDS: hydroCHLOROthiazide 25 mg Tablet PO (09:28)
[2023-04-18] MEDS: fluticasone nasal spray 16gm Btl 2 SPRAY INTRANASAL (09:29)
[2023-04-18 10:27] VITALS: BP 152/84; PULSE 68; TEMP 36.6; O2SAT 96
[2023-04-18 12:43] VITALS: BP 164/92; PULSE 72; RESP 17; TEMP 36.7; O2SAT 95
[2023-04-18 13:02] VITALS: BP 164/92; PULSE 72; RESP 17; TEMP 36.7; O2SAT 95
== END 2023-04-18 13:02 | disposition home or self-care (01) ==
LOC: OBGYN 11:53
PROVIDERS: Admitting Provider Obstetrics & Gynecology; PCP Family Medicine Adult Medicine; Visit Provider Obstetrics & Gynecology
PROC: (CPT 57250; 2023-04-17 10:05)
PROC: (CPT 57288; 2023-04-17 10:05)
DX: N81.10 Cystocele, unspecified (principal); N81.6 Rectocele; K21.9 Gastro-esophageal reflux disease without esophagitis; E66.01 Morbid (severe) obesity due to excess calories; Z68.37 Body mass index [BMI] 37.0-37.9, adult; Z79.52 Long term (current) use of systemic steroids; I12.9 Hypertensive chronic kidney disease with stage 1 through stage 4 chronic kidney disease, or unspecified chronic kidney disease; N18.2 Chronic kidney disease, stage 2 (mild); F03.90 Unspecified dementia, unspecified severity, without behavioral disturbance, psychotic disturbance, mood disturbance, and anxiety; J44.9 Chronic obstructive pulmonary disease, unspecified; E78.5 Hyperlipidemia, unspecified; E03.9 Hypothyroidism, unspecified; Z79.891 Long term (current) use of opiate analgesic
CPT/HCPCS: 57260; 36415; 51798; 81003; 85027; 86850; 86900; 93005; 96374; 96376; C1762; G0378; J0131; J0694; J1650; J1885; J2704; J3010; J3490; J7030; J7121

== ENCOUNTER 2023-11-08 08:14 | Observation (INO) | payer MEDICARE, MEDICAID, SELFPAY ==
[2023-11-08] VITALS (14 sets, daily range): BP systolic 114–203; BP diastolic 66–135; PULSE 70–94; RESP 16–18; TEMP 36.4–36.7; O2SAT 80–99; BMI 33.9
[2023-11-08 08:59] LABS: Basophils # 0.1 10^3/uL (0.0-0.1); Basophils % 0.5 %; Eosinophils # 0.2 10^3/uL (0.0-0.8); Eosinophils % 1.6 %; Hematocrit 43.1 % (36-47); Lymphocytes # 1.9 10^3/uL (0.8-4.8); Lymphocytes % 20.4 %; Mean Corpuscular HGB Conc 33.2 g/dL (30-55); Mean Corpuscular Hemoglobin 31.5 pg (27-33); Mean Corpuscular Volume 94.9 fl (85-98); Mean Platelet Volume 9.5 fL (7.4-10.4); Monocytes # 0.7 10^3/uL (0.2-0.9); Monocytes % 7.3 %; Nucleated Red Blood Cells % 0 %; Platelet Count 319 10^3/cmm (157-399); Red Blood Count 4.54 10^6/uL (3.85-5.65); Red Cell Distribution Width 13.8 % (12.1-15.1); White Blood Count 9.43 10^3/uL (3.29-11.43)
[2023-11-08 09:05] LABS: Alanine Aminotransferase 12 U/L (0-33); Albumin Level 3.8 g/dL (3.5-5.2); Alkaline Phosphatase 85 U/L (35-105); Anion Gap 14.5 (5-19); Aspartate Amino Transferase 13 U/L (0-32); Blood Urea Nitrogen 12 mg/dL (8-23); Calcium 9.2 mg/dL (8.5-10.5); Carbon Dioxide 27 mmol/L (22-29); Chloride 101 mmol/L (98-107); Globulin 3.8 g/dL (1.3-4.6); Glucose 123 mg/dL (65-115); Osmolality Calculated 287 mOsm/kg (285-295); Potassium 4.5 mmol/L (3.5-5.1); Sodium 138 mmol/L (136-145); Total Bilirubin 0.5 mg/dL (0.15-1.2); Total Protein 7.6 g/dL (6.6-8.7)
--- NOTE | 2023-11-08 09:29 | XRR_ITS ---
PROCEDURE INFORMATION: Exam: XR Chest Exam date and time: 11/08/2023 9:42 AM Age: 73 years old Clinical indication: Cough and dyspnea; Additional info: Dyspnea/cough TECHNIQUE: Imaging protocol: Radiologic exam of the chest. Views: 1 view. COMPARISON: CR XR chest 2V* [id number] 02/22/2023 2:06 PM FINDINGS: Lungs: Lateral left mid lung zone calcified granuloma. No consolidation. Pleural spaces: Unremarkable. No pleural effusion. No pneumothorax. Heart/Mediastinum: Unremarkable. No cardiomegaly. Bones/joints: Degenerative changes along the spine and acromioclavicular joints. XR/XR chest 1V portable [id number] IMPRESSION: No acute findings.
--- NOTE | 2023-11-08 09:29 | W.ED.EXTPRO ---
HPI - Extremity Problem General: Chief complaint: Extremity Injury, Lower Stated complaint: feet feel mushy and roll and falls Time Seen by Provider: 11/08/23 08:24 History of Present Illness: 73-year-old female presents emergency room with complaint of leg weakness and inability to walk. She has a history of spinal stenosis about 3 years ago she had a back surgery. She describes her legs as being more she . She states her legs rolling her ankles a role and she does not have any strength in her legs this been really sick relatively sudden onset she also describes numbness and tingling on her inner thighs and perineum. She not had any fecal incontinence or urinary retention. No recent falls or trauma. Associated symptoms: Deny chest pain, fever(s) or rash Related Data Home Medications Medication Instructions Recorded Confirmed levothyroxine 50 mcg tablet 50 mcg PO DAILY 04/17/23 11/08/23 oxybutynin chloride 10 mg 10 mg PO DAILY 11/08/23 11/08/23 tablet,extended release 24 hr Previous Rx's Medication Instructions Recorded Compression Stockings #2 ea 12/24/21 polyethylene glycol 3350 17 17 g PO DAILY #119 grams 11/10/22 gram/dose oral powder (Miralax) ergocalciferol (vitamin D2) 1,250 1,250 mcg PO Q7D 90 days #13 caps 01/31/23 mcg (50,000 unit) capsule guaifenesin 600 mg tablet, 600 mg PO BID cough #60 tabs 03/15/23 extended release 12 hr oxycodone-acetaminophen 5 mg-325 1 tab PO TID PRN pain 30 days #90 03/22/23 mg tablet (Percocet) tabs cetirizine 10 mg tablet (Allergy 10 mg PO DAILY PRN Allergy 04/06/23 Relief (cetirizine)) Symptoms 30 days #90 tabs clotrimazole 1 % topical cream See Rx Instructions .Route 04/12/23 (Antifungal (clotrimazole)) .COMPLEX #3 ea acetaminophen 325 mg capsule 325 mg PO Q4H PRN fever or pain 04/18/23 #60 caps hydrochlorothiazide 25 mg tablet 25 mg PO DAILY #90 tabs 05/30/23 pantoprazole 40 mg tablet,delayed 40 mg PO DAILY #90 tabs 05/30/23 release albuterol sulfate 90 mcg/actuation 2 inh inhalation Q6H PRN shortness 06/14/23 aerosol inhaler of breath or wheezing #18 grams azelastine 137 mcg (0.1 %) nasal 2 spray intranasal BID #30 mL 08/01/23 spray meclizine 12.5 mg tablet 12.5 mg PO TID PRN dizziness #30 08/02/23 tabs triamcinolone acetonide 0.1 % See Rx Instructions .Route 08/22/23 topical cream .COMPLEX #80 grams citalopram 10 mg tablet (Celexa) 10 mg PO DAILY anxiety #30 tabs 09/11/23 fluticasone propionate 50 2 spray intranasal BID cough #16 09/11/23 mcg/actuation nasal grams spray,suspension (Flonase Allergy Relief) meloxicam 15 mg tablet 15 mg PO DAILY PRN pain #30 tabs 09/11/23 fluticasone fur. 200 mcg-umeclid 1 inh inhalation DAILY #60 ea 10/03/23 62.5 mcg-vilant 25 mcg inhalat.powder (Trelegy Ellipta) Allergies Allergy/AdvReac Type Severity Reaction Status Date / Time codeine Allergy Intermediate ALGY-Rash Verified 07/25/23 07:31 hydrocodone Allergy Intermediate ALGY-Rash Verified 07/25/23 07:31 gabapentin Allergy dizzy Verified 07/25/23 07:31 Review of Systems Const: Denies: fever(s) or chills Card: Denies: chest pain Resp: Denies: dyspnea GI: Denies: abdominal pain : Denies: dysuria, urinary frequency or urinary urgency Musc: Denies: neck pain or back pain Skin/Breast: Denies: rash PFSH ED PFSH: Medical History Avulsion of toenail of right foot Avulsion of toenail of left foot Osteoarthritis involving multiple joints on both sides of body Dystrophy of nail due to trauma Chronic bronchitis with acute exacerbation Obesity (BMI 30-39.9) CKD (chronic kidney disease) stage 2, GFR 60-89 ml/min Dementia Spinal stenosis of lumbar region [facility] SIJ joint inflammation, peripheral neuropathy, Rt hip pain Allergic rhinitis due to allergen Peripheral neuropathy Prediabetes Allergic reaction to bee sting GERD (gastroesophageal reflux disease) She has acid reflux and is taking pantoprazole 40 mg daily this is controlling her symptoms well. Insomnia COPD (chronic obstructive pulmonary disease) Hyperlipidemia Hypothyroidism She has hypothyroidism and her last TSH was 2.3 and 02/03/2020 and she is on levothyroxine 50 MCG's daily and will recheck her TSH at least yearly. Depression Anxiety Hypertension Encounter for long-term opiate analgesic use Surgical History History of lumbar surgery p MIS lumbar spine decompression stenosis L3/[address] Menjivar 09/24/20 History of surgery on upper extremity Family History Mother Hypertension Father Hypertension Denies family history of Colon cancer Ovarian cancer Diabetes Heart disease Hypercholesteremia Breast cancer Uterine cancer Thyroid disease Stroke Social History Smoking and tobacco/nicotine status: never used tobacco/nicotine Substance/Drug Use: never Physical Exam Const: COMMON NORMALS: no acute distress GENERAL APPEARANCE: cooperative and comfortable ORIENTATION/CONSCIOUSNESS: Yes awake, Yes oriented to person, Yes oriented to place and Yes oriented to time HENMT: COMMON NORMALS: normocephalic, atraumatic and hearing grossly normal bilaterally HEAD & SCALP: normocephalic and atraumatic Resp: COMMON NORMALS: normal respiratory effort, No retractions, No use of accessory muscles and clear to auscultation bilaterally AUSCULTATION: clear to auscultation bilaterally Cardio: COMMON NORMALS: regular rate, regular rhythm and No murmurs present (Cardio) RATE: regular rate RHYTHM: regular rhythm GI: COMMON NORMALS: Soft to palpation and No hepatosplenomegaly present AUSCULTATION: Yes normoactive bowel sounds PALPATION: Yes Soft to palpation, No Tenderness to palpation present (GI), No Guarding due to palpation present (GI) and Yes No hepatosplenomegaly present Extremity: COMMON NORMALS: normal to inspection, capillary refill normal, no clubbing, cyanosis or edema, no calf tenderness and no pedal edema Neuro: SENSORIUM/ORIENTATION: Yes oriented to person, Yes oriented to place and Yes oriented to time Skin: COMMON NORMALS: no rashes or lesions noted GENERAL SKIN EXAM: no rashes or lesions noted Course Vital Signs: Vital signs: Vital Signs Temperature 97.5 F L 11/08/23 09:18 Pulse Rate 80 11/08/23 14:30 Respiratory Rate 16 11/08/23 14:30 Blood Pressure 135/75 11/08/23 14:30 Pulse Oximetry 97 11/08/23 14:30 Oxygen Delivery Me thod Room Air 11/08/23 13:01 MDM - Extremity (Nontraumatic) Medical Decision Making Initially we wanted to get an MRI patient refused we did a CT after that we were able to note some lumbar stenosis and further discussion with the patient ultimately she agreed to an MRI. This took some time to get which led to a very protracted ER course. Patient was given morphine for pain which resulted in the need for some oxygen supplementation. Patient has saddle paresthesias dorsiflexion weakness bilaterally. She has not had any urinary retention or fecal incontinence. MRI does show severe stenosis. Will admit discussed with hospitalist consult Dr. Menjivar. Incidental finding of cystitis as well which was treated with ceftriaxone. Medical Records I reviewed the patient's medical records. Lab Data I reviewed the patient's lab results. 11/08/23 08:43 11/08/23 08:43 Radiology Impressions Chest X-Ray 11/08/23 09:29 IMPRESSION: No acute findings. Lumbar Spine CT 11/08/23 10:17 IMPRESSION: 1. Moderate central canal stenosis L4-5 slightly progressed since 2021. This could be further evaluated with MRI. 2. Mild central canal stenosis T11-T12 and T12-L1 with impingement of the subarticular recess. 3. Moderate central canal stenosis L3-4 with disc osteophyte complex appears similar to previous. 4. Otherwise multilevel foraminal narrowing described above. Lumbar Spine MRI 11/08/23 14:43 IMPRESSION: Motion limited study. Multilevel degenerative changes of the lumbar spine as outlined above. This is worst at the L3-L4 and L4-L5 levels where there is moderate to severe central stenosis. Consider neurosurgical/orthopedic spine consultation. Laboratory Results WBC 9.43 10^3/uL (3.29-11.43) 11/08/23 08:43 RBC 4.54 10^6/uL (3.85-5.65) 11/08/23 08:43 Hgb 14.30 g/dL (11.27-16.99) 11/08/23 08:43 Hct 43.1 % (36-47) 11/08/23 08:43 MCV 94.9 fl (85-98) 11/08/23 08:43 MCH 31.5 pg (27-33) 11/08/23 08:43 MCHC 33.2 g/dL (30-55) 11/08/23 08:43 RDW 13.8 % (12.1-15.1) 11/08/23 08:43 Plt Count 319 10^3/cmm (157-399) 11/08/23 08:43 MPV 9.5 fL (7.4-10.4) 11/08/23 08:43 Neut % (Auto) 70.0 % 11/08/23 08:43 Lymph % (Auto) 20.4 % 11/08/23 08:43 [place] % (Auto) 7.3 % 11/08/23 08:43 Eos % (Auto) 1.6 % 11/08/23 08:43 Baso % (Auto) 0.5 % 11/08/23 08:43 Neut # (Auto) 6.60 10^3/uL (1.8-7.7) 11/08/23 08:43 Lymph # (Auto) 1.9 10^3/uL (0.8-4.8) 11/08/23 08:43 [place] # (Auto) 0.7 10^3/uL (0.2-0.9) 11/08/23 08:43 Eos # (Auto) 0.2 10^3/uL (0.0-0.8) 11/08/23 08:43 Baso # (Auto) 0.1 10^3/uL (0.0-0.1) 11/08/23 08:43 Nucleated RBC % (auto) 0 % 11/08/23 08:43 Nucleated RBCs # 0.0 /100WBC 11/08/23 08:43 Sodium 138 mmol/L (136-145) 11/08/23 08:43 Potassium 4.5 mmol/L (3.5-5.1) 11/08/23 08:43 Chloride 101 mmol/L (98-107) 11/08/23 08:43 Carbon Dioxide 27 mmol/L (22-29) 11/08/23 08:43 Anion Gap 14.5 (5-19) 11/08/23 08:43 BUN 12 mg/dL (8-23) 11/08/23 08:43 Creatinine 0.8 mg/dL (0.5-0.9) 11/08/23 08:43 GFR Calculation Not Reportable 11/08/23 08:43 Glucose 123 mg/dL (65-115) H 11/08/23 08:43 Calculated Osmolality 287 mOsm/kg (285-295) 11/08/23 08:43 Calcium 9.2 mg/dL (8.5-10.5) 11/08/23 08:43 Total Bilirubin 0.5 mg/dL (0.15-1.2) 11/08/23 08:43 AST 13 U/L (0-32) 11/08/23 08:43 ALT 12 U/L (0-33) 11/08/23 08:43 Alkaline Phosphatase 85 U/L (35-105) 11/08/23 08:43 Troponin T Baseline 15 ng/L (0-10) H 11/08/23 08:43 Troponin T 120 Minute 13.58 ng/L (0-10) H 11/08/23 10:43 Delta Troponin T -1.42 ABS# (0-10) L 11/08/23 10:43 Troponin T Hi Sens 6Hr 12.50 ng/L (0-10) H 11/08/23 15:20 Troponin T Hi Sens 6Hr Delta -2.50 ng/L (0-12) L 11/08/23 15:20 Total Protein 7.6 g/dL (6.6-8.7) 11/08/23 08:43 Albumin 3.8 g/dL (3.5-5.2) 11/08/23 08:43 Globulin 3.8 g/dL (1.3-4.6) 11/08/23 08:43 Urine Color Yellow (Yellow) 11/08/23 10:54 Urine Appearance Error (CLEAR) A 11/08/23 10:54 Urine pH 7.0 (5-7) 11/08/23 10:54 Ur Specific [place] 1.014 (1.005-1.030) 11/08/23 10:54 Urine Protein Trace (Negative) A 11/08/23 10:54 Urine Glucose (UA) Negative (Normal) 11/08/23 10:54 Urine Ketones Negative (Negative) 11/08/23 10:54 Urine Blood Negative (Negative) 11/08/23 10:54 Urine Nitrate Negative (Negative) 11/08/23 10:54 Urine Bilirubin Negative (Negative) 11/08/23 10:54 Urine Urobilinogen 1.0 mg/dL (Negative) 11/08/23 10:54 Ur Leukocyte Esterase 1+ (Negative) A 11/08/23 10:54 Urine RBC 0-2 /hpf (0-2) 11/08/23 10:54 Urine WBC 21-50 /hpf (0-5) H 11/08/23 10:54 Ur Squamous Epith Cells 0-5 /hpf (0-5) 11/08/23 10:54 Amorphous Sediment Not Reportable 11/08/23 10:54 Urine Bacteria None seen /hpf (NONE) 11/08/23 10:54 Hyaline Casts 0.81 /lpf 11/08/23 10:54 All radiology interpretation(s) finalized by discharge Discharge Plan Discharge Patient Disposition: Admitted As Inpatient Clinical Impression: Spinal stenosis, lumbar region with neurogenic claudication, Cystitis Condition: Stable Prescriptions: No Action (DME) Compression Stockings See Rx Instructions .Route .MEDSUPPLY Qty: 2 0RF Rx Instructions: To be sized by pharmacy/store. guaifenesin 600 mg tablet extended release 12hr 600 mg PO BID Qty: 60 0RF cetirizine [Allergy Relief (cetirizine)] 10 mg tablet 10 mg PO DAILY PRN (Reason: Allergy Symptoms) 30 Days Qty: 90 2RF polyethylene glycol 3350 [Miralax] 17 gram/dose powder 17 g PO DAILY Qty: 119 5RF ergocalciferol (vitamin D2) 1,250 mcg (50,000 unit) capsule 1,250 mcg PO Q7D 90 Days Qty: 13 3RF oxycodone-acetaminophen [Percocet] 5-325 mg tablet 1 tab PO TID PRN (Reason: pain) 30 Days Qty: 90 0RF Rx Instructions: fill on or after 30 day interval clotrimazole [Antifungal (clotrimazole)] 1 % cream See Rx Instructions .ROUTE .COMPLEX Qty: 3 3RF Dose Instruction: APPLY ONE (1) APPLICATION TOPICALLY 3 TIMES DAILY FOR YEAST SKIN INFECTIONS Rx Instructions: APPLY ONE (1) APPLICATION TOPICALLY 3 TIMES DAILY FOR YEAST SKIN INFECTIONS hydrochlorothiazide 25 mg tablet 25 mg PO DAILY Qty: 90 3RF pantoprazole 40 mg tablet,delayed release (DR/EC) 40 mg PO DAILY Qty: 90 3RF albuterol sulfate 90 mcg/actuation HFA aerosol inhaler 2 inh inhalation Q6H PRN (Reason: shortness of breath or wheezing) Qty: 18 5RF azelastine 137 mcg (0.1 %) aerosol,spray 2 spray intranasal BID Qty: 30 2RF Rx Instructions: administer into each nostril meclizine 12.5 mg tablet 12.5 mg PO TID PRN (Reason: dizziness) Qty: 30 1RF triamcinolone acetonide 0.1 % cream See Rx Instructions .ROUTE .COMPLEX Qty: 80 2RF Dose Instruction: APPLY 1 APPLICATION TOPICALLY TO RASH TWICE DAILY NEEDED FOR TWO WEEKS THEN OFF FOR TWO WEEKS THEN MAY REPEAT Rx Instructions: APPLY 1 APPLICATION TOPICALLY TO RASH TWICE DAILY NEEDED FOR TWO WEEKS THEN OFF FOR TWO WEEKS THEN MAY REPEAT citalopram [Celexa] 10 mg tablet 10 mg PO DAILY Qty: 30 5RF meloxicam 15 mg tablet 15 mg PO DAILY PRN (Reason: pain) Qty: 30 3RF fluticasone propionate [Flonase Allergy Relief] 50 mcg/actuation spray,suspension 2 spray intranasal BID Qty: 16 3RF Rx Instructions: administer into each nostril Trelegy Ellipta 200-62.5-25 mcg blister with device 1 inh inhalation DAILY Qty: 60 3RF levothyroxine 50 mcg tablet 50 mcg PO DAILY acetaminophen 325 mg capsule 325 mg PO Q4H PRN (Reason: fever or pain) Qty: 60 0RF oxybutynin chloride 10 mg tablet extended release 24hr 10 mg PO DAILY Referrals: Delmar Anand MD [Primary Care Provider] - Coding Level of Care Code ED [employer] Professor for Ashia Vega
[2023-11-08 10:02] LABS: Troponin(5th) Baseline 15 ng/L (0-10)
--- NOTE | 2023-11-08 10:17 | CT_ITS ---
WS: [id number] CT LUMBAR SPINE TECHNIQUE: Contrast-enhanced CT of the lumbar spine with coronal and sagittal reformatted images. CLINICAL INFORMATION: back pain radiculopathy, fever COMPARISON: MRI 09/27/2021 DLP: 1070.[address] scans at [facility] use at least one of these dose optimization techniques: automated e xposure control; mA and/or kV adjustment per patient size (includes targeted exams where dose is matc hed to clinical indication); or iterative reconstruction. FINDINGS: Moderate spondylitic changes. Mild lumbar curve. Lumbar curve convex LEFT. Disc space narrowing worse at L2-L3 and L3-L4. Disc osteophyte complex L3-4. Alignment is similar to previous. L1-L2: Disc osteophyte complex with mild central canal stenosis. Narrowing of the subarticular recess bilaterally. Mild bilateral foraminal narrowing. L2-L3: Disc osteophyte complex with mild central canal stenosis. Foramina are patent. L3-L4: Disc osteophyte protrusion with moderate central canal stenosis. Impingement RIGHT subarticula r recess. Moderate RIGHT and mild LEFT foraminal narrowing. Moderate facet arthropathy. L4-L5: Moderate central canal stenosis with facet arthropathy and ligamentum flavum hypertrophy. Mild LEFT greater than RIGHT foraminal narrowing. L5-S1: Spinal canal and foramen are patent. Moderate facet arthropathy. Visualized pelvic bony structures: Normal. Paravertebral soft tissues: Normal. Adrenal glands are normal. Exophytic LEFT renal cyst. CT/CT lumbar spine w con [id number] IMPRESSION: 1. Moderate central canal stenosis L4-5 slightly progressed since 2021. This c ould be further evaluated with MRI. 2. Mild central canal stenosis T11-T12 and T12-L1 with impingement of the suba rticular recess. 3. Moderate central canal stenosis L3-4 with disc osteophyte complex appears s imilar to previous. 4. Otherwise multilevel foraminal narrowing described above.
--- NOTE | 2023-11-08 10:54 | ECG_ITS ---
[facility] Test Date: 2023-11-08 Pat Name: Georgiana Mayo Department: Room: Gender: Female Assurance Analyst: : 1950 Requested By: Faheem Palma Order Number: [id number] Reading MD: KENAN BENÍTEZ Measurements Intervals [place] Rate: 74 P: -12 ID: 120 QRS: 61 QRSD: 78 T: 59 QT: 389 QTc: 432 Interpretive Statements SINUS RHYTHM WITH OCCASIONAL SUPRAVENTRICULAR PREMATURE COMPLEXES Compared to ECG 04/12/2023 12:06:46 Sinus arrhythmia no longer present Electronically Signed On 11-08-2023 11:45:30 CDT by KENAN BENÍTEZ [email or web address]. c. watkins memorial hospitalFerevoselect medical trihealth rehabilitation hospitalID Watchdog/store/OM/[id number]
[2023-11-08] MEDS: LORazepam 2 mg/mL INJ 1 mL IVP ×2 (11:07→15:05)
[2023-11-08 11:11] LABS: Bacteria Urine None Seen /hpf; Hyaline Casts Urine 0.81 /lpf; RBC Urine 0-2 /hpf (0-2); Squamous Epithelial Cell Urine 0-5 /hpf (0-5); WBC Urine 21-50 /hpf (0-5)
[2023-11-08 11:18] LABS: Add Urine Microscopic? YES; Bilirubin Urine Negative (Negative); Blood Urine Negative (Negative); Glucose Urine UA Negative (Normal); Ketones Urine Negative (Negative); Leukocyte Esterase Urine 1+ (Negative); Nitrate Urine Negative (Negative); Protein Urine Trace (Negative); Specific Gravity, Urine 1.014 (1.005-1.030); Urine Appearance Error (CLEAR); Urine Color Yellow (Yellow)
[2023-11-08 11:22] LABS: Add Urine Culture? Yes
--- NOTE | 2023-11-08 11:29 | ECG_ITS ---
[facility] Test Date: 2023-11-08 Pat Name: Georgiana Mayo Department: Room: Gender: Female Ironer Sock: : 1950 Requested By: Faheem Palma Order Number: [id number] Reading MD: KENAN BENÍTEZ Measurements Intervals [place] Rate: 69 P: 73 AL: 177 QRS: 44 QRSD: 85 T: 50 QT: 413 QTc: 444 Interpretive Statements SINUS RHYTHM WITH SINUS ARRHYTHMIA Compared to ECG 11/08/2023 10:54:23 No significant changes Electronically Signed On 11-08-2023 19:54:03 CDT by KENAN BENÍTEZ [email or web address] [email or web address] [email or web address]/store/[id number]
[2023-11-08] MEDS: iohexol 350 mg/mL 500 mL Btl (per mL) IV (11:37)
[2023-11-08 11:39] LABS: Troponin 5 2HR 13.58 ng/L (0-10); Troponin 5 2HR Delta -1.42 ABS# (0-10)
[2023-11-08] MEDS: amlodipine 10 mg Tablet PO (12:59)
[2023-11-08] MEDS: hyDRALAzine 20 mg/mL INJ 1 mL IVP (13:00)
--- NOTE | 2023-11-08 14:43 | MRR_ITS ---
PROCEDURE INFORMATION: Exam: MR Lumbar Spine Without and With Contrast Exam date and time: 11/08/2023 3:57 PM Age: 73 years old Clinical indication: Low back pain; Prior surgery; Surgery date: 6+ months; Surgery type: Lumbar decompression 09/14/20; Additional info: Back pain, saddle parathesia, radicular leg symptoms TECHNIQUE: Imaging protocol: Magnetic resonance imaging of the lumbar spine without and with contrast. Contrast material: MULTIHANCE; Contrast volume: 20 ml; Contrast route: INTRAVENOUS (IV); COMPARISON: CT lumbar spine w con [id number] 11/08/2023 11:10 AM FINDINGS: Limitations: Suboptimal evaluation of multiple sequences secondary to patient motion. Bones/joints: The lumbar vertebral bodies are normally aligned. The vertebral body heights are maintained. Schmorl's nodes are noted along the inferior endplates of the T11, T12 and L1 vertebral bodies and superior endplate of the L2 vertebral body. Moderate disc space narrowing at L1-L2, L2-L3 and L3-L4. Spinal cord: The conus terminates normally at the T12-L1 level. The roots of the cauda equina are not clumped or thickened. No abnormal intrathecal enhancement. L1-L2: Broad concentric disc bulge and bilateral facet arthropathy contributing to moderate central canal stenosis. Moderate bilateral neuroforaminal narrowing. L2-L3: Broad concentric disc bulge and bilateral facet arthropathy contributing to moderate central canal stenosis. Moderate bilateral neuroforaminal narrowing. L3-L4: Broad concentric disc bulge and bilateral facet arthropathy contributing to moderate to severe central canal stenosis. Moderate bilateral neuroforaminal narrowing. L4-L5: Broad concentric disc bulge and bilateral facet arthropathy contributing to moderate to severe central canal stenosis. Moderate bilateral neuroforaminal narrowing. L5-S1: No significant disc bulge or herniation. No severe spinal canal stenosis. No significant neural foraminal narrowing. Soft tissues: Unremarkable. MR/MR lumbar spine wo/w con [id number] IMPRESSION: Motion limited study. Multilevel degenerative changes of the lumbar spine as outlined above. This is worst at the L3-L4 and L4-L5 levels where there is moderate to severe central stenosis. Consider neurosurgical/orthopedic spine consultation.
--- NOTE | 2023-11-08 15:29 | ECG_ITS ---
[facility] Test Date: 2023-11-08 Pat Name: Georgiana Mayo Department: Room: Gender: Female Tire Inspector: : 1950 Requested By: Faheem Palma Order Number: [id number] Reading MD: KENAN BENÍTEZ Measurements Intervals [place] Rate: 80 P: -34 MD: 157 QRS: 51 QRSD: 81 T: 31 QT: 395 QTc: 457 Interpretive Statements SINUS RHYTHM NONSPECIFIC T-WAVE ABNORMALITY Compared to ECG 11/08/2023 12:08:37 T-wave abnormality now present Sinus arrhythmia no longer present Electronically Signed On 11-08-2023 19:53:28 CDT by KENAN BENÍTEZ [email or web address] [email or web address] valley health system bluffton hospitalChina [employer]/store/OM/[id number]
[2023-11-08] MEDS: gadobenate dimeglumine 20 mL vial IV (16:26)
--- NOTE | 2023-11-08 17:58 | P.HP_ITS ---
Providers/Chief Complaint 2 Primary Care Provider: Delmar Anand MD Chief Complaint: feet feel mushy and roll and falls History of Present Illness Georgiana Mayo is a 73 year old female who presented to hospital with chief complaint not been able to walk and feeling heavy and numb in her legs. Patient has not endorsed fecal or urinary incontinence. Patient is stating that a week ago she went to [place], road was very bumpy and she started having worsening of back pain, in last 1 week she has had fallen multiple times, she is not able to walk on her feet stating her feet are very unsteady, they feel pulpy. Denying chest pain shortness of breath nausea vomiting diarrhea. MRI showing worsening of degenerative changes in the lower lumbar region Dr. Menjivar will be consulted I have added Decadron She has saddle anesthesia, no urinary or fecal incontinence Review of Systems 2 Const: Denies: fever(s) Eyes: Denies: change in vision ENMT: Denies: throat pain Card: Denies: chest pain Resp: Denies: dyspnea GI: Denies: abdominal pain : Denies: flank pain Musc: Reports: back pain and extremity pain Neuro: Reports: numbness in extremities, weakness in extremities and difficulty walking Medications/Allergies Home Medications Medication Instructions Recorded Confirmed Last Taken Type Compression Stockings #2 ea 12/24/21 11/08/23 Unknown Rx polyethylene glycol 3350 17 17 g PO DAILY #119 grams 11/10/22 11/08/23 Unknown Rx gram/dose oral powder (Miralax) ergocalciferol (vitamin D2) 1,250 1,250 mcg PO Q7D 90 days #13 caps 01/31/23 11/08/23 04/15/23 Rx mcg (50,000 unit) capsule guaifenesin 600 mg tablet, 600 mg PO BID cough #60 tabs 03/15/23 11/08/23 11/07/23 Rx extended release 12 hr oxycodone-acetaminophen 5 mg-325 1 tab PO TID PRN pain 30 days #90 03/22/23 11/08/23 04/16/23 Rx mg tablet (Percocet) tabs cetirizine 10 mg tablet (Allergy 10 mg PO DAILY PRN Allergy 04/06/23 11/08/23 1 Day Ago Rx Relief (cetirizine)) Symptoms 30 days #90 tabs ~04/11/23 clotrimazole 1 % topical cream See Rx Instructions .Route 04/12/23 11/08/23 11/07/23 Rx (Antifungal (clotrimazole)) .COMPLEX #3 ea levothyroxine 50 mcg tablet 50 mcg PO DAILY 04/17/23 11/08/23 11/07/23 History acetaminophen 325 mg capsule 325 mg PO Q4H PRN fever or pain 04/18/23 11/08/23 Unknown Rx #60 caps hydrochlorothiazide 25 mg tablet 25 mg PO DAILY #90 tabs 05/30/23 11/08/23 11/07/23 Rx pantoprazole 40 mg tablet,delayed 40 mg PO DAILY #90 tabs 05/30/23 11/08/23 11/07/23 Rx release albuterol sulfate 90 mcg/actuation 2 inh inhalation Q6H PRN shortness 06/14/23 11/08/23 Unknown Rx aerosol inhaler of breath or wheezing #18 grams azelastine 137 mcg (0.1 %) nasal 2 spray intranasal BID #30 mL 08/01/23 11/08/23 11/07/23 Rx spray meclizine 12.5 mg tablet 12.5 mg PO TID PRN dizziness #30 08/02/23 11/08/23 Unknown Rx tabs triamcinolone acetonide 0.1 % See Rx Instructions .Route 08/22/23 11/08/23 Unknown Rx topical cream .COMPLEX #80 grams citalopram 10 mg tablet (Celexa) 10 mg PO DAILY anxiety #30 tabs 09/11/23 11/08/23 11/07/23 Rx fluticasone propionate 50 2 spray intranasal BID cough #16 09/11/23 11/08/23 11/07/23 Rx mcg/actuation nasal grams spray,suspension (Flonase Allergy Relief) meloxicam 15 mg tablet 15 mg PO DAILY PRN pain #30 tabs 09/11/23 11/08/23 Unknown Rx fluticasone fur. 200 mcg-umeclid 1 inh inhalation DAILY #60 ea 10/03/23 11/08/23 11/07/23 Rx 62.5 mcg-vilant 25 mcg inhalat.powder (Trelegy Ellipta) oxybutynin chloride 10 mg 10 mg PO DAILY 11/08/23 11/08/23 11/07/23 History tablet,extended release 24 hr Allergies Allergy/AdvReac Type Severity Reaction Status Date / Time codeine Allergy Intermediate ALGY-Rash Verified 07/25/23 07:31 hydrocodone Allergy Intermediate ALGY-Rash Verified 07/25/23 07:31 gabapentin Allergy dizzy Verified 07/25/23 07:31 PFSH Acute 2 PFSH: Medical History Avulsion of toenail of right foot Avulsion of toenail of left foot Osteoarthritis involving multiple joints on both sides of body Dystrophy of nail due to trauma Chronic bronchitis with acute exacerbation Obesity (BMI 30-39.9) CKD (chronic kidney disease) stage 2, GFR 60-89 ml/min Dementia Spinal stenosis of lumbar region [facility] SIJ joint inflammation, peripheral neuropathy, Rt hip pain Allergic rhinitis due to allergen Peripheral neuropathy Prediabetes Allergic reaction to bee sting GERD (gastroesophageal reflux disease) She has acid reflux and is taking pantoprazole 40 mg daily this is controlling her symptoms well. Insomnia COPD (chronic obstructive pulmonary disease) Hyperlipidemia Hypothyroidism She has hypothyroidism and her last TSH was 2.3 and 02/03/2020 and she is on levothyroxine 50 MCG's daily and will recheck her TSH at least yearly. Depression Anxiety Hypertension Encounter for long-term opiate analgesic use Surgical History History of lumbar surgery p MIS lumbar spine decompression stenosis L3/[address] Menjivar 09/24/20 History of surgery on upper extremity Family History Mother Hypertension Father Hypertension Denies family history of Colon cancer Ovarian cancer Diabetes Heart disease Hypercholesteremia Breast cancer Uterine cancer Thyroid disease Stroke Social History Smoking and tobacco/nicotine status: never used tobacco/nicotine Substance/Drug Use: never Vitals/I&O/Wt Last Vital Signs Temp 97.5 F L 11/08/23 09:18 Pulse 80 11/08/23 14:30 Resp 16 11/08/23 14:30 BP 135/75 11/08/23 14:30 Pulse Ox 97 11/08/23 14:30 O2 Del Method Room Air 11/08/23 13:01 Weight last 48 hrs Weight 101.151 kg Physical Exam 2 Narrative: Numbness around medial thigh areas Patient is able to dorsiflex and plantarflex against resistance She needs assistance to walk on her feet S1, S2 hemodynamically stable, will obese Awake and alert Nonfocal neuroexam Currently on room air Data 11/08/23 08:43 11/08/23 08:43 A&P Assessment and plan (1) Anxiety: (2) Hypertension: Qualifiers: Hypertension type: primary hypertension Qualified Code(s): I10 - Essential (primary) hypertension (3) Hypothyroidism: Qualifiers: Hypothyroidism type: acquired Qualified Code(s): E03.9 - Hypothyroidism, unspecified (4) CKD (chronic kidney disease) stage 2, GFR 60-89 ml/min: (5) Spinal stenosis of lumbar region: Qualifiers: Neurogenic claudication status: with neurogenic claudication Qualified Code(s): M48.062 - Spinal stenosis, lumbar region with neurogenic claudication (6) Spinal stenosis, lumbar region with neurogenic claudication: (7) Peripheral neuropathy: (8) COPD (chronic obstructive pulmonary disease): Qualifiers: COPD type: chronic bronchitis Chronic bronchitis type: mucopurulent Qualified Code(s): J41.1 - Mucopurulent chronic bronchitis Plan Lumbar disease with neurogenic claudication Patient has saddle anesthesia No urinary or fecal incontinence Able to walk with a sensation Does not have all typical features of cauda equina at this time I will start her on Decadron Dr. Menjivar consulted N.p.o. after midnight She can eat and drink before midnight for now For UTI will start ceftriaxone Continue opioids along bowel regimen Full code Cardiac diet for now then n.p.o. after midnight Continue DuoNeb for COPD, not requiring oxygen Continue levothyroxine For hypertension continue antihypertensive regimen Patient is stating that she would like second opinion as well after talking with Dr. Menjivar Attestations 2 Medical Necessity Statement*: Possible discharge within 48 hours Diagnoses Anxiety F41.9 Primary hypertension I10 Hypertension type: primary hypertension Acquired hypothyroidism E03.9 Hypothyroidism type: acquired CKD (chronic kidney disease) stage 2, GFR 60-89 ml/min N18.2 Spinal stenosis of lumbar region with neurogenic claudication M48.062 Neurogenic claudication status: with neurogenic claudication Spinal stenosis, lumbar region with neurogenic claudication M48.062 Peripheral neuropathy G62.9 Mucopurulent chronic bronchitis J41.1 COPD type: chronic bronchitis Chronic bronchitis type: mucopurulent
[2023-11-08] MEDS: cefTRIAXone 1,000 mg SDV 1000 MG IVP (19:00)
--- NOTE | 2023-11-08 19:25 | PC.NURSE ---
Kaya LEUNG and this preceptor assumed care of patient at shift change from Diana LEUNG.
[2023-11-08 21:11] LABS: Vitamin B12 156 pg/mL (232-1245)
[2023-11-08] MEDS: sennosides-docusate Tablet 2 TAB PO (21:47)
[2023-11-08] MEDS: dexamethasone 4 mg Tablet PO (21:48)
[2023-11-08] MEDS: morphine IR 15 mg Tablet PO (22:02)
[2023-11-09] VITALS: BP 110/71; PULSE 79; RESP 17; TEMP 36.8; O2SAT 93
[2023-11-09 04:00] VITALS: BP 113/70; PULSE 88; RESP 17; TEMP 36.6; O2SAT 94
[2023-11-09 05:25] LABS: Basophils % 0.2 %; Hematocrit 41.4 % (36-47); Lymphocytes # 1.3 10^3/uL (0.8-4.8); Lymphocytes % 12.6 %; Mean Corpuscular HGB Conc 32.9 g/dL (30-55); Mean Corpuscular Hemoglobin 31.5 pg (27-33); Mean Corpuscular Volume 95.8 fl (85-98); Mean Platelet Volume 9.7 fL (7.4-10.4); Monocytes # 0.3 10^3/uL (0.2-0.9); Monocytes % 2.7 %; Neutrophils # 8.39 10^3/uL (1.8-7.7); Neutrophils % 84.1 %; Nucleated Red Blood Cells % 0 %; Platelet Count 315 10^3/cmm (157-399); Red Blood Count 4.32 10^6/uL (3.85-5.65); White Blood Count 9.98 10^3/uL (3.29-11.43)
[2023-11-09 05:55] LABS: Anion Gap 15.4 (5-19); Blood Urea Nitrogen 13 mg/dL (8-23); C Reactive Protein 4.9 mg/L (0.0-4.9); Calcium 9.1 mg/dL (8.5-10.5); Carbon Dioxide 24 mmol/L (22-29); Chloride 104 mmol/L (98-107); Creatinine Clr Calc Pharmacy 84.3591; Glucose 152 mg/dL (65-115); Osmolality Calculated 291 mOsm/kg (285-295); Potassium 4.4 mmol/L (3.5-5.1); Sodium 139 mmol/L (136-145)
--- NOTE | 2023-11-09 06:59 | P.CONIM_ITS ---
Providers/Reason For Consult 2 Consulting Physician/Specialty*: Hospitalist Reason for Consult*: Weakness in legs Attending Physician: Makayla Salguero MD Primary Care Provider: Delmar Anand MD History of Present Illness History of Present Illness Georgiana Mayo is a 73 year old female not been able to walk and feeling heavy and numb in her legs. Patient has not endorsed fecal or urinary incontinence. Patient is stating that a week ago she went to [place], road was very bumpy and she started having worsening of back pain, in last 1 week she has had fallen multiple times, she is not able to walk on her feet stating her feet are very unsteady, they feel mushy . Review of Systems 2 Const: Denies: fever(s) Eyes: Denies: change in vision ENMT: Denies: throat pain Card: Denies: chest pain Resp: Denies: dyspnea GI: Denies: abdominal pain : Denies: flank pain Musc: Reports: back pain and extremity pain Neuro: Reports: numbness in extremities, weakness in extremities and difficulty walking Medications/Allergies Home Medications Medication Instructions Recorded Confirmed Last Taken Type Compression Stockings #2 ea 12/24/21 11/08/23 Unknown Rx polyethylene glycol 3350 17 17 g PO DAILY #119 grams 11/10/22 11/08/23 Unknown Rx gram/dose oral powder (Miralax) ergocalciferol (vitamin D2) 1,250 1,250 mcg PO Q7D 90 days #13 caps 01/31/23 11/08/23 04/15/23 Rx mcg (50,000 unit) capsule guaifenesin 600 mg tablet, 600 mg PO BID cough #60 tabs 03/15/23 11/08/23 11/07/23 Rx extended release 12 hr oxycodone-acetaminophen 5 mg-325 1 tab PO TID PRN pain 30 days #90 03/22/23 11/08/23 04/16/23 Rx mg tablet (Percocet) tabs cetirizine 10 mg tablet (Allergy 10 mg PO DAILY PRN Allergy 04/06/23 11/08/23 1 Day Ago Rx Relief (cetirizine)) Symptoms 30 days #90 tabs ~04/11/23 clotrimazole 1 % topical cream See Rx Instructions .Route 04/12/23 11/08/23 11/07/23 Rx (Antifungal (clotrimazole)) .COMPLEX #3 ea levothyroxine 50 mcg tablet 50 mcg PO DAILY 04/17/23 11/08/23 11/07/23 History acetaminophen 325 mg capsule 325 mg PO Q4H PRN fever or pain 04/18/23 11/08/23 Unknown Rx #60 caps hydrochlorothiazide 25 mg tablet 25 mg PO DAILY #90 tabs 05/30/23 11/08/23 11/07/23 Rx pantoprazole 40 mg tablet,delayed 40 mg PO DAILY #90 tabs 05/30/23 11/08/23 11/07/23 Rx release albuterol sulfate 90 mcg/actuation 2 inh inhalation Q6H PRN shortness 06/14/23 11/08/23 Unknown Rx aerosol inhaler of breath or wheezing #18 grams azelastine 137 mcg (0.1 %) nasal 2 spray intranasal BID #30 mL 08/01/23 11/08/23 11/07/23 Rx spray meclizine 12.5 mg tablet 12.5 mg PO TID PRN dizziness #30 08/02/23 11/08/23 Unknown Rx tabs triamcinolone acetonide 0.1 % See Rx Instructions .Route 08/22/23 11/08/23 Unknown Rx topical cream .COMPLEX #80 grams citalopram 10 mg tablet (Celexa) 10 mg PO DAILY anxiety #30 tabs 09/11/23 11/08/23 11/07/23 Rx fluticasone propionate 50 2 spray intranasal BID cough #16 09/11/23 11/08/23 11/07/23 Rx mcg/actuation nasal grams spray,suspension (Flonase Allergy Relief) meloxicam 15 mg tablet 15 mg PO DAILY PRN pain #30 tabs 09/11/23 11/08/23 Unknown Rx fluticasone fur. 200 mcg-umeclid 1 inh inhalation DAILY #60 ea 10/03/23 11/08/23 11/07/23 Rx 62.5 mcg-vilant 25 mcg inhalat.powder (Trelegy Ellipta) oxybutynin chloride 10 mg 10 mg PO DAILY 11/08/23 11/08/23 11/07/23 History tablet,extended release 24 hr Allergies Allergy/AdvReac Type Severity Reaction Status Date / Time codeine Allergy Intermediate ALGY-Rash Verified 11/08/23 21:49 hydrocodone Allergy Intermediate ALGY-Rash Verified 11/08/23 21:49 gabapentin Allergy dizzy Verified 11/08/23 21:49 Current Medications Generic Name Dose Route Start Last Admin Trade Name Freq PRN Reason Stop Dose Admin Dexamethasone 4 mg 11/08/23 21:00 11/08/23 21:48 Dexamethasone 4 Mg Tablet PO 4 mg QID LYNNE Administration Morphine Sulfate 15 mg 11/08/23 19:59 11/08/23 22:02 Morphine Ir 15 Mg Tablet PO 15 mg Q6H PRN Administration MODERATE PAIN Senna/Docusate Sodium 2 tab 11/08/23 19:59 11/08/23 21:47 Sennosides-Docusate Tablet PO 2 tab BID LYNNE Administration PFSH Acute 2 PFSH: Medical History Avulsion of toenail of right foot Avulsion of toenail of left foot Osteoarthritis involving multiple joints on both sides of body Dystrophy of nail due to trauma Chronic bronchitis with acute exacerbation Obesity (BMI 30-39.9) CKD (chronic kidney disease) stage 2, GFR 60-89 ml/min Dementia Spinal stenosis of lumbar region [facility] SIJ joint inflammation, peripheral neuropathy, Rt hip pain Allergic rhinitis due to allergen Peripheral neuropathy Prediabetes Allergic reaction to bee sting GERD (gastroesophageal reflux disease) She has acid reflux and is taking pantoprazole 40 mg daily this is controlling her symptoms well. Insomnia COPD (chronic obstructive pulmonary disease) Hyperlipidemia Hypothyroidism She has hypothyroidism and her last TSH was 2.3 and 02/03/2020 and she is on levothyroxine 50 MCG's daily and will recheck her TSH at least yearly. Depression Anxiety Hypertension Encounter for long-term opiate analgesic use Surgical History History of lumbar surgery p MIS lumbar spine decompression stenosis L3/[address] Menjivar 09/24/20 History of surgery on upper extremity Family History Mother Hypertension Father Hypertension Denies family history of Colon cancer Ovarian cancer Diabetes Heart disease Hypercholesteremia Breast cancer Uterine cancer Thyroid disease Stroke Social History Smoking and tobacco/nicotine status: never used tobacco/nicotine Substance/Drug Use: never Vitals/I&O/Wt Last Vital Signs Temp 97.8 F 11/09/23 04:00 Pulse 88 11/09/23 04:00 Resp 17 11/09/23 04:00 BP 113/70 11/09/23 04:00 Pulse Ox 94 11/09/23 04:00 O2 Del Method Room Air 11/09/23 04:00 Weight last 48 hrs Weight 245 lb 5 oz Weight 244 lb 11.2 oz Weight 223 lb Physical Exam 2 Narrative: On physical exam patient has 5 and 5 strength on plantarflexion dorsiflexion of her feet sensations intact. Data 11/09/23 04:38 11/09/23 04:38 A&P Assessment and plan (1) Spinal stenosis, lumbar region with neurogenic claudication: I reviewed patient's MRI from September 2021 and compared to yesterday's MRI. There is minimal to no change. She does have stenosis at L3-4 L4-5 which is moderate to severe. However there are no acute changes in the MRI. At this point to give the patient options. First option is to stay in the hospital we will give her steroids over the weekend and see if she has any improvement. If she does not have improvement second possibly do surgery on Sunday if indicated. Option 2 would be to send her home on oral steroids I see her in the clinic and evaluate her outpatient. I do not feel she has cauda equina or any acute reason to take her to surgery today. Coding Level of Care Code Acute Code for [facility] Fwd Diagnoses Spinal stenosis, lumbar region with neurogenic claudication M48.062
[2023-11-09 08:00] VITALS: BP 125/81; PULSE 82; RESP 16; TEMP 36.6; O2SAT 96
[2023-11-09 08:31] VITALS: RESP 16
[2023-11-09] MEDS: cefTRIAXone 1,000 MG in sodium chloride 0.9% (plus) 50 ML 100 MG IV (08:31)
[2023-11-09] MEDS: morphine IR 15 mg Tablet PO (08:31)
[2023-11-09] MEDS: levothyroxine 50 mcg Tablet PO (08:32)
[2023-11-09] MEDS: sennosides-docusate Tablet 2 TAB PO (08:32)
[2023-11-09] MEDS: dexamethasone 4 mg Tablet PO (08:33)
[2023-11-09] MEDS: acetaminophen 500 mg Tablet PO (08:34)
--- NOTE | 2023-11-09 09:25 | P.DS_ITS ---
Discharge Providers Date of Admission: 11/08/23 18:02 Date of Discharge: November 09, 2023 Attending Provider at Admission: Makayla Salguero MD Attending Provider at Discharge: Makayla Salguero MD Primary Care Provider: Delmar Anand MD Diagnoses at Discharge Discharge Diagnosis (1) Spinal stenosis, lumbar region with neurogenic claudication: Status: Acute Reason for Visit Reason for Visit: feet feel mushy and roll and falls Hospital Course Hospital Course 73-year female who present to the hospital for worsening of numbness around her thigh area saddle anesthesia and lower extremity weakness, patient recently had a trip to [place] which made her back pain worse, she did not show typical cauda equina signs during hospitalization, MRI was done in the ER which showed significant degenerative joint disease of the lower lumbar region, Dr. Menjivar was consulted, patient was kept on Decadron, patient is stating that she is willing to follow-up with Dr. 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 Patient is stating that she has 5 grandchildren and she enjoys time with them but she is not able to play with them and let them sit in her lap. She is getting treated for UTI as well however she does not have typical signs of UTI/cystitis. Physical Exam Narrative: Awake and alert She is able to appreciate pressure around her medial thigh areas but not able to detect fine touch She was examined in front of female nurse She has good dorsiflexion and plantarflexion She is able to move her extremities, she is one-person assist on ambulation She does not have typical cauda equina signs Awake and alert Morbidly obese Currently on room air Discharge Data Studies Completed and Pending Completed Studies During Hospitalization Category Date Time Status CT lumbar spine w con [id number] Stat Cat Scan 11/08/23 10:17 Completed XR chest 1V portable [id number] Stat Exams 11/08/23 09:29 Completed MR lumbar spine wo/w con [id number] Stat MRI 11/08/23 14:43 Completed Pending at discharge Category Date Time Status Urine Culture Routine Lab 11/08/23 10:54 Received Radiology Impressions Chest X-Ray 11/08/23 09:29 IMPRESSION: No acute findings. Lumbar Spine CT 11/08/23 10:17 IMPRESSION: 1. Moderate central canal stenosis L4-5 slightly progressed since 2021. This could be further evaluated with MRI. 2. Mild central canal stenosis T11-T12 and T12-L1 with impingement of the subarticular recess. 3. Moderate central canal stenosis L3-4 with disc osteophyte complex appears similar to previous. 4. Otherwise multilevel foraminal narrowing described above. Lumbar Spine MRI 11/08/23 14:43 IMPRESSION: Motion limited study. Multilevel degenerative changes of the lumbar spine as outlined above. This is worst at the L3-L4 and L4-L5 levels where there is moderate to severe central stenosis. Consider neurosurgical/orthopedic spine consultation. Laboratory Results WBC 9.98 10^3/uL (3.29-11.43) 11/09/23 04:38 RBC 4.32 10^6/uL (3.85-5.65) 11/09/23 04:38 Hgb 13.60 g/dL (11.27-16.99) 11/09/23 04:38 Hct 41.4 % (36-47) 11/09/23 04:38 MCV 95.8 fl (85-98) 11/09/23 04:38 MCH 31.5 pg (27-33) 11/09/23 04:38 MCHC 32.9 g/dL (30-55) 11/09/23 04:38 RDW 14.0 % (12.1-15.1) 11/09/23 04:38 Plt Count 315 10^3/cmm (157-399) 11/09/23 04:38 MPV 9.7 fL (7.4-10.4) 11/09/23 04:38 Neut % (Auto) 84.1 % 11/09/23 04:38 Lymph % (Auto) 12.6 % 11/09/23 04:38 [place] % (Auto) 2.7 % 11/09/23 04:38 Eos % (Auto) 0.0 % 11/09/23 04:38 Baso % (Auto) 0.2 % 11/09/23 04:38 Neut # (Auto) 8.39 10^3/uL (1.8-7.7) H 11/09/23 04:38 Lymph # (Auto) 1.3 10^3/uL (0.8-4.8) 11/09/23 04:38 [place] # (Auto) 0.3 10^3/uL (0.2-0.9) 11/09/23 04:38 Eos # (Auto) 0.0 10^3/uL (0.0-0.8) 11/09/23 04:38 Baso # (Auto) 0.0 10^3/uL (0.0-0.1) 11/09/23 04:38 Nucleated RBC % (auto) 0 % 11/09/23 04:38 Nucleated RBCs # 0.0 /100WBC 11/09/23 04:38 Sodium 139 mmol/L (136-145) 11/09/23 04:38 Potassium 4.4 mmol/L (3.5-5.1) 11/09/23 04:38 Chloride 104 mmol/L (98-107) 11/09/23 04:38 Carbon Dioxide 24 mmol/L (22-29) 11/09/23 04:38 Anion Gap 15.4 (5-19) 11/09/23 04:38 BUN 13 mg/dL (8-23) 11/09/23 04:38 Creatinine 0.8 mg/dL (0.5-0.9) 11/09/23 04:38 GFR Calculation Not Reportable 11/09/23 04:38 Glucose 152 mg/dL (65-115) H 11/09/23 04:38 Calculated Osmolality 291 mOsm/kg (285-295) 11/09/23 04:38 Calcium 9.1 mg/dL (8.5-10.5) 11/09/23 04:38 Magnesium 2.0 mg/dL (1.7-2.3) 11/09/23 04:38 Total Bilirubin 0.5 mg/dL (0.15-1.2) 11/08/23 08:43 AST 13 U/L (0-32) 11/08/23 08:43 ALT 12 U/L (0-33) 11/08/23 08:43 Alkaline Phosphatase 85 U/L (35-105) 11/08/23 08:43 Troponin T Baseline 15 ng/L (0-10) H 11/08/23 08:43 Troponin T 120 Minute 13.58 ng/L (0-10) H 11/08/23 10:43 Delta Troponin T -1.42 ABS# (0-10) L 11/08/23 10:43 Troponin T Hi Sens 6Hr 12.50 ng/L (0-10) H 11/08/23 15:20 Troponin T Hi Sens 6Hr Delta -2.50 ng/L (0-12) L 11/08/23 15:20 C-Reactive Protein 4.9 mg/L (0.0-4.9) 11/09/23 04:38 Total Protein 7.6 g/dL (6.6-8.7) 11/08/23 08:43 Albumin 3.8 g/dL (3.5-5.2) 11/08/23 08:43 Globulin 3.8 g/dL (1.3-4.6) 11/08/23 08:43 Vitamin B12 156 pg/mL (232-1245) L 11/08/23 15:20 Urine Color Yellow (Yellow) 11/08/23 10:54 Urine Appearance Error (CLEAR) A 11/08/23 10:54 Urine pH 7.0 (5-7) 11/08/23 10:54 Ur Specific Stella 1.014 (1.005-1.030) 11/08/23 10:54 Urine Protein Trace (Negative) A 11/08/23 10:54 Urine Glucose (UA) Negative (Normal) 11/08/23 10:54 Urine Ketones Negative (Negative) 11/08/23 10:54 Urine Blood Negative (Negative) 11/08/23 10:54 Urine Nitrate Negative (Negative) 11/08/23 10:54 Urine Bilirubin Negative (Negative) 11/08/23 10:54 Urine Urobilinogen 1.0 mg/dL (Negative) 11/08/23 10:54 Ur Leukocyte Esterase 1+ (Negative) A 11/08/23 10:54 Urine RBC 0-2 /hpf (0-2) 11/08/23 10:54 Urine WBC 21-50 /hpf (0-5) H 11/08/23 10:54 Ur Squamous Epith Cells 0-5 /hpf (0-5) 11/08/23 10:54 Amorphous Sediment Not Reportable 11/08/23 10:54 Urine Bacteria None seen /hpf (NONE) 11/08/23 10:54 Hyaline Casts 0.81 /lpf 11/08/23 10:54 Vitals Last Vital Signs Temp 98 F 11/09/23 08:00 Pulse 82 11/09/23 08:00 Resp 16 11/09/23 08:31 BP 125/81 11/09/23 08:00 Pulse Ox 96 11/09/23 08:00 O2 Del Method Room Air 11/09/23 04:00 Discharge Plan Discharge Patient Disposition: Home Condition: Stable Prescriptions: New cefpodoxime 200 mg tablet 200 mg PO BID Qty: 10 0RF Rx Instructions: must administer with a meal/food dexamethasone 4 mg tablet 4 mg PO QID 4 Days Qty: 16 0RF Continued (DME) Compression Stockings See Rx Instructions .Route .MEDSUPPLY Qty: 2 0RF Rx Instructions: To be sized by pharmacy/store. guaifenesin 600 mg tablet extended release 12hr 600 mg PO BID Qty: 60 0RF cetirizine [Allergy Relief (cetirizine)] 10 mg tablet 10 mg PO DAILY PRN (Reason: Allergy Symptoms) 30 Days Qty: 90 2RF polyethylene glycol 3350 [Miralax] 17 gram/dose powder 17 g PO DAILY Qty: 119 5RF ergocalciferol (vitamin D2) 1,250 mcg (50,000 unit) capsule 1,250 mcg PO Q7D 90 Days Qty: 13 3RF oxycodone-acetaminophen [Percocet] 5-325 mg tablet 1 tab PO TID PRN (Reason: pain) 30 Days Qty: 90 0RF Rx Instructions: fill on or after 30 day interval clotrimazole [Antifungal (clotrimazole)] 1 % cream See Rx Instructions .ROUTE .COMPLEX Qty: 3 3RF Dose Instruction: APPLY ONE (1) APPLICATION TOPICALLY 3 TIMES DAILY FOR YEAST SKIN INFECTIONS Rx Instructions: APPLY ONE (1) APPLICATION TOPICALLY 3 TIMES DAILY FOR YEAST SKIN INFECTIONS hydrochlorothiazide 25 mg tablet 25 mg PO DAILY Qty: 90 3RF pantoprazole 40 mg tablet,delayed release (DR/EC) 40 mg PO DAILY Qty: 90 3RF albuterol sulfate 90 mcg/actuation HFA aerosol inhaler 2 inh inhalation Q6H PRN (Reason: shortness of breath or wheezing) Qty: 18 5RF azelastine 137 mcg (0.1 %) aerosol,spray 2 spray intranasal BID Qty: 30 2RF Rx Instructions: administer into each nostril meclizine 12.5 mg tablet 12.5 mg PO TID PRN (Reason: dizziness) Qty: 30 1RF triamcinolone acetonide 0.1 % cream See Rx Instructions .ROUTE .COMPLEX Qty: 80 2RF Dose Instruction: APPLY 1 APPLICATION TOPICALLY TO RASH TWICE DAILY NEEDED FOR TWO WEEKS THEN OFF FOR TWO WEEKS THEN MAY REPEAT Rx Instructions: APPLY 1 APPLICATION TOPICALLY TO RASH TWICE DAILY NEEDED FOR TWO WEEKS THEN OFF FOR TWO WEEKS THEN MAY REPEAT citalopram [Celexa] 10 mg tablet 10 mg PO DAILY Qty: 30 5RF meloxicam 15 mg tablet 15 mg PO DAILY PRN (Reason: pain) Qty: 30 3RF fluticasone propionate [Flonase Allergy Relief] 50 mcg/actuation spray,suspension 2 spray intranasal BID Qty: 16 3RF Rx Instructions: administer into each nostril Trelegy Ellipta 200-62.5-25 mcg blister with device 1 inh inhalation DAILY Qty: 60 3RF levothyroxine 50 mcg tablet 50 mcg PO DAILY acetaminophen 325 mg capsule 325 mg PO Q4H PRN (Reason: fever or pain) Qty: 60 0RF oxybutynin chloride 10 mg tablet extended release 24hr 10 mg PO DAILY Referrals: Doug Menjivar DO [Physician] - 11/13/23 (wants windshield repair technician appt) Delmar Anand MD [Primary Care Provider] - Patient Instructions: Opioid Safety Discharge Attestations Time Spent in Discharge Care*: greater than 30 min Quality Metrics Clinical Quality Measures [ No reported AMI, CVA or VTE this stay] Coding Level of Care Code Acute Code for Chg Fwd Diagnoses Spinal stenosis, lumbar region with neurogenic claudication M48.062
[2023-11-09 12:56] VITALS: RESP 16
== END 2023-11-09 12:57 | disposition home or self-care (01) ==
LOC: ER 17:50 → MEDSURG 19:53
PROVIDERS: Admitting Provider Internal Medicine; Emergency Provider Family Medicine; PCP Family Medicine Adult Medicine; Visit Provider Internal Medicine
DX: M48.062 Spinal stenosis, lumbar region with neurogenic claudication (principal); R26.2 Difficulty in walking, not elsewhere classified; Z91.81 History of falling; E66.01 Morbid (severe) obesity due to excess calories; Z68.37 Body mass index [BMI] 37.0-37.9, adult; I12.9 Hypertensive chronic kidney disease with stage 1 through stage 4 chronic kidney disease, or unspecified chronic kidney disease; N18.2 Chronic kidney disease, stage 2 (mild); K21.9 Gastro-esophageal reflux disease without esophagitis; F03.90 Unspecified dementia, unspecified severity, without behavioral disturbance, psychotic disturbance, mood disturbance, and anxiety; E78.5 Hyperlipidemia, unspecified; E03.9 Hypothyroidism, unspecified; G62.9 Polyneuropathy, unspecified; J41.1 Mucopurulent chronic bronchitis
CPT/HCPCS: 36415; 71045; 72132; 72158; 80048; 80053; 82607; 83735; 84484; 85025; 86140; 87086; 93005; 96374; 96375; 96376; 99285; A9577; G0378; J0360; J0696; J2060; J8540

== ENCOUNTER → 2023-11-13 07:47 | Outpatient (BNVA) | payer MEDICARE, MEDICAID, SELFPAY | PROVIDERS: PCP Family Medicine Adult Medicine; Visit Provider Orthopaedic Surgery | DX: M54.50 Low back pain, unspecified (principal); Z01.818 Encounter for other preprocedural examination; R73.03 Prediabetes; M54.9 Dorsalgia, unspecified; M48.062 Spinal stenosis, lumbar region with neurogenic claudication | CPT/HCPCS: 36415; 80053; 81001; 83036; 85025; 99214 ==

== ENCOUNTER 2023-11-19 13:16 | Inpatient (IN) | payer MEDICARE, MEDICAID, SELFPAY ==
[2023-11-19] VITALS (19 sets, daily range): BP systolic 106–187; BP diastolic 64–114; PULSE 63–102; RESP 16–18; TEMP 36.5–37.4; O2SAT 92–99; BMI 35.2
[2023-11-19] MEDS: sodium chloride 0.9% 1,000 ML 30 ML IV (10:25)
--- NOTE | 2023-11-19 10:36 | ANES.PREANE2 ---
Pre-Anesthetic Assessment Height/Weight: Height 1.73 m Weight 105.233 kg Temp Pulse Resp BP Pulse Ox O2 Del Method 97.7 F 70 18 156/81 97 Room Air 11/19/23 09:35 11/19/23 09:35 11/19/23 09:35 11/19/23 09:35 11/19/23 09:35 11/19/23 09:45 Preop Diagnosis: Lumbar stenosis with neurogenic claudication Operation Date: 11/19/23 11:15 Proposed Procedures p Lumbar Spine Decompression Lumbar Decompression(Not Applicable) - Doug Menjivar, DO Familial anesthetic complications: None Was Beta Carol taken within 24 hours: N/A Was Clonidine taken within 24 hours: N/A Last intake: Intake Last Liquid Date 11/18/23 Last Liquid Time 22:40 Last Solid Date 11/18/23 Last Solid Time 22:40 Social No alcohol and No tobacco Exam alert, oriented x 3, clear to auscultation bilaterally and regular rate & rhythm Airway Mallampati: Class II Dentition: false Pulmonary Chronic Obstructive Pulmonary Disease CV/HEM Hypertension GI Gastroesophageal Reflux Disease Metabolic Morbid Obesity and Thyroid Disease Anesthetic Plan ASA status: 3 Anesthesia: General Risk of > 500 ml blood loss (7ml/kg in children): No Medications/Allergies Home Medications Medication Instructions Recorded Confirmed Last Taken Type Compression Stockings #2 ea 12/24/21 11/13/23 11/15/23 Rx polyethylene glycol 3350 17 17 g PO DAILY #119 grams 11/10/22 11/16/23 11/15/23 Rx gram/dose oral powder (Miralax) ergocalciferol (vitamin D2) 1,250 1,250 mcg PO Q7D 90 days #13 caps 01/31/23 11/16/23 11/15/23 Rx mcg (50,000 unit) capsule guaifenesin 600 mg tablet, 600 mg PO BID cough #60 tabs 03/15/23 11/16/23 11/15/23 Rx extended release 12 hr oxycodone-acetaminophen 5 mg-325 1 tab PO TID PRN pain 30 days #90 03/22/23 11/16/23 11/18/23 Rx mg tablet (Percocet) tabs cetirizine 10 mg tablet (Allergy 10 mg PO DAILY PRN Allergy 04/06/23 11/16/23 11/15/23 Rx Relief (cetirizine)) Symptoms 30 days #90 tabs clotrimazole 1 % topical cream See Rx Instructions .Route 04/12/23 11/16/23 11/15/23 Rx (Antifungal (clotrimazole)) .COMPLEX #3 ea levothyroxine 50 mcg tablet 50 mcg PO DAILY 04/17/23 11/16/23 11/15/23 History acetaminophen 325 mg capsule 325 mg PO Q4H PRN fever or pain 04/18/23 11/16/23 11/15/23 Rx #60 caps hydrochlorothiazide 25 mg tablet 25 mg PO DAILY #90 tabs 05/30/23 11/16/23 11/15/23 Rx pantoprazole 40 mg tablet,delayed 40 mg PO DAILY #90 tabs 05/30/23 11/16/23 11/15/23 Rx release albuterol sulfate 90 mcg/actuation 2 inh inhalation Q6H PRN shortness 06/14/23 11/16/23 11/15/23 Rx aerosol inhaler of breath or wheezing #18 grams azelastine 137 mcg (0.1 %) nasal 2 spray intranasal BID #30 mL 08/01/23 11/16/23 11/15/23 Rx spray triamcinolone acetonide 0.1 % See Rx Instructions .Route 08/22/23 11/16/23 11/15/23 Rx topical cream .COMPLEX #80 grams citalopram 10 mg tablet (Celexa) 10 mg PO DAILY anxiety #30 tabs 09/11/23 11/16/23 11/15/23 Rx fluticasone propionate 50 2 spray intranasal BID cough #16 09/11/23 11/16/23 11/15/23 Rx mcg/actuation nasal grams spray,suspension (Flonase Allergy Relief) meloxicam 15 mg tablet 15 mg PO DAILY PRN pain #30 tabs 09/11/23 11/16/23 11/15/23 Rx fluticasone fur. 200 mcg-umeclid 1 inh inhalation DAILY #60 ea 10/03/23 11/16/23 11/15/23 Rx 62.5 mcg-vilant 25 mcg inhalat.powder (Trelegy Ellipta) oxybutynin chloride 10 mg 10 mg PO DAILY 11/08/23 11/16/23 11/15/23 History tablet,extended release 24 hr Wheelchair #1 ea 11/13/23 11/13/23 11/15/23 Rx clonidine HCl 0.1 mg tablet 0.1 mg PO TID #20 tabs 11/13/23 11/16/23 11/15/23 Rx Allergies Allergy/AdvReac Type Severity Reaction Status Date / Time codeine Allergy Intermediate ALGY-Rash Verified 11/13/23 13:15 hydrocodone Allergy Intermediate ALGY-Rash Verified 11/13/23 13:15 gabapentin Allergy dizzy Verified 11/13/23 13:15 Current Medications Generic Name Dose Route Start Last Admin Trade Name Freq PRN Reason Stop Dose Admin Sodium Chloride 1,000 mls @ 30 mls/hr 11/19/23 09:30 11/19/23 10:25 Sodium Chloride 0.9% IV 11/20/23 09:29 30 mls/hr .Q24H LYNNE Administration PFSH Anesthesia Medical History Cystitis Spinal stenosis, lumbar region with neurogenic claudication Avulsion of toenail of right foot Avulsion of toenail of left foot Osteoarthritis involving multiple joints on both sides of body Dystrophy of nail due to trauma Chronic bronchitis with acute exacerbation Obesity (BMI 30-39.9) CKD (chronic kidney disease) stage 2, GFR 60-89 ml/min Dementia Spinal stenosis of lumbar region [facility] SIJ joint inflammation, peripheral neuropathy, Rt hip pain Allergic rhinitis due to allergen Peripheral neuropathy Prediabetes Allergic reaction to bee sting GERD (gastroesophageal reflux disease) She has acid reflux and is taking pantoprazole 40 mg daily this is controlling her symptoms well. Insomnia COPD (chronic obstructive pulmonary disease) Hyperlipidemia Hypothyroidism She has hypothyroidism and her last TSH was 2.3 and 02/03/2020 and she is on levothyroxine 50 MCG's daily and will recheck her TSH at least yearly. Depression Anxiety Hypertension Encounter for long-term opiate analgesic use Surgical History History of lumbar surgery p MIS lumbar spine decompression stenosis L3/[address] Menjivar 09/24/20 History of surgery on upper extremity Family History Mother Hypertension Father Hypertension Denies family history of Colon cancer Ovarian cancer Diabetes Heart disease Hypercholesteremia Breast cancer Uterine cancer Thyroid disease Stroke Social History Smoking and tobacco/nicotine status: never used tobacco/nicotine Substance/Drug Use: never Data Anesthesia Cardiac Studies: No Data to Display
--- NOTE | 2023-11-19 10:54 | W.PM.OPSUD ---
Surgery/Procedure H&P Update DATE OF PROCEDURE: November 19, 2023 DATE H&P PERFORMED: 11/13/23 H&P UPDATE INFORMATION: I have reviewed H&P completed within last 30 days, I have examined patient prior to procedure and No changes to prior documentation PREOP DIAGNOSIS: Lumbar stenosis with neurogenic claudication PLANNED PROCEDURE: Operation Date: 11/19/23 11:15 Proposed Procedures p Lumbar Spine Decompression Lumbar Decompression(Not Applicable) - Doug Menjivar DO
[2023-11-19] MEDS: ceFAZolin 2,000 mg SDV 2000 MG IVP ×2 (11:25→22:05)
[2023-11-19] MEDS: lidocaine-epi 1% PF 1:200,000 30 mL SDV INJECTION (11:55)
[2023-11-19] MEDS: vancomycin 1,000 MG SDV 1000 MG XX (12:37)
[2023-11-19] MEDS: labetalol 5 mg/mL SDV 20mL IVP (13:24)
--- NOTE | 2023-11-19 13:25 | P.OP_ITS ---
Operative Report Date of procedure: November 19, 2023 Pre-op diagnosis: Lumbar stenosis with neurogenic claudication Procedure done: 1. L3-4 laminectomy with partial facetectomies 2. L4-5 laminectomy with partial facetectomies Surgeon: Doug Menjivar DO Estimated blood loss (mL): 200 Procedure: 1. L3-4 laminectomy with partial facetectomies 2. L4-5 laminectomy with partial facetectomies patient was brought to the operative suite after an Gonasi was placed in the prone position. All his impingement well-padded. Patient's prepped emergency room fashion. Skin incision made over the L3-4 level this confirmed number C-arm guidance. The Subperiosteal dissection was made out to the facet joints of L3-4 and L4-5. Retractors were placed. [place] was used to take down the spinous process of between the L4 and L5 interspinous space. This is also done between L3-4. The spinous process then was taken down from both. Attention was first brought to the L4-5 level. This was done by using a high- speed bur to take down the lamina as well as medial aspect of facet joints bilaterally. The Kerrison rongeur was then used to take down the lamina as well as the medial aspect of facet joints. The ligamentum flavum was taken down from L4-L5. The L4 nerve roots were traced out the L4-5 foramen and the L5 nerves were traced around the L5 pedicle. Next attention was brought to the L3-4 level. This was done again using high- speed bur to take down the lamina as well as the medial aspect of facet joints. Then Kerrison rongeur was used to take down the medial aspect of facet joints along with the remaining lamina. And then the ligamentum flavum was taken down from L3-L4. The L3 nerve was traced out the L3-4 foramen and the L4 nerve traced around the L4 pedicles. Wounds were irrigated vancomycin powder was placed deep drain was placed previous closed in layered fashion with 0 Vicryl 2- 0 Vicryl Monocryl suture. Sterile dressings were applied patient transferred to the PACU in stable condition.
--- NOTE | 2023-11-19 14:15 | ANE.PACU2 ---
Inpatient post-anesthesia follow up: Airway intact: Yes Vital signs: Temperature 99 F Pulse Rate 86 Respiratory Rate 18 Blood Pressure 187/87 Pulse Oximetry 95 Oxygen Delivery Me thod Nasal Cannula Oxygen Flow Rate 3 Fraction of Inspir ed Oxygen Hydration adequate: Yes Nausea and vomiting: No Pain level: 1 Mental status: Baseline
--- NOTE | 2023-11-19 14:30 | XR_ITS ---
WS: [id number] Lumbar spine, C ARM fluoroscopy images, 11/19/2023 Clinical Data: RODRIGO PICS Comparison: Lumbar spine, 03/12/2020 Findings: Dr. Menjivar exposed the posterior lumbar spine XR/XR lumbar spine 2-3V* [id number] Impression: Exposure of the lumbar spine.
[2023-11-19] MEDS: oxyCODONE-APAP 5-325 mg Tablet PO ×2 (15:58→22:05)
[2023-11-19] MEDS: ketorolac 30 mg/mL INJ IVP (15:59)
[2023-11-19] MEDS: cloNIDine 0.1 mg Tablet PO (15:59)
[2023-11-19] MEDS: clotrimazole 1% cream 30 gm 1 APPLIC TOPICAL ×2 (16:01→22:05)
[2023-11-19] MEDS: ipratropium-albuterol 3 mL Neb INHALATION ×2 (16:26→20:00)
[2023-11-19] MEDS: lactated ringers 1,000 ML 90 ML IV (16:58)
[2023-11-19] MEDS: fluticasone nasal spray 16gm Btl 2 SPRAY INTRANASAL (17:00)
[2023-11-19] MEDS: guaiFENesin 600 mg Tablet PO (17:00)
[2023-11-19] MEDS: docusate sodium 100 mg Capsule PO (17:00)
[2023-11-19] MEDS: budesonide 0.5 mg/2 mL Neb INHALATION (20:01)
--- NOTE | 2023-11-19 20:11 | PC.NURSE ---
Day shift nurse reported to me that patient's hemovac was draining to gravity when she arrived from surgery. Contacted Dr. Menjivar to verify if he wanted the hemovac draining to gravity or compressed. He ordered to compress it.
[2023-11-20] VITALS (8 sets, daily range): BP systolic 128–147; BP diastolic 70–82; PULSE 67–80; RESP 16–20; TEMP 36.6–36.8; O2SAT 92–97
[2023-11-20] MEDS: oxyCODONE-APAP 5-325 mg Tablet PO (04:12)
[2023-11-20] MEDS: lactated ringers 1,000 ML 90 ML IV (04:12)
[2023-11-20] MEDS: ceFAZolin 2,000 mg SDV 2000 MG IVP (04:30)
[2023-11-20] MEDS: ketorolac 30 mg/mL INJ IVP (05:08)
--- NOTE | 2023-11-20 08:14 | PM.DCS ---
Discharge Providers Date of Admission: 11/19/23 23:30 Date of Discharge: November 20, 2023 Attending Provider at Admission: Doug Menjivar DO Attending Provider at Discharge: Doug Menjivar DO Primary Care Provider: Delmar Anand MD Reason for Visit Reason for Visit: M480.62 Physical Exam Narrative: Pain control doing well. Will get up with therapy Urinary Catheter Management: [place]: Cath Placed During This Visit: yes Reason for Continuing Indwelling Catheter: Perioperative Use in Selected Surgeries Urinary Catheter Date of Insertion: 11/19/23 Urinary Catheter Time of Insertion: 11:30 Discharge Data Studies Completed and Pending Pending at discharge Category Date Time Status XR lumbar spine 2-3V* [id number] Routine Exams 11/19/23 14:30 Taken Laboratory Results Hgb 11.80 g/dL (11.27-16.99) 11/20/23 07:12 Hct 36.0 % (36-47) 11/20/23 07:12 Vitals Last Vital Signs Temp 97.9 F 11/20/23 04:00 Pulse 67 11/20/23 04:00 Resp 16 11/20/23 04:12 BP 135/82 11/20/23 04:00 Pulse Ox 95 11/20/23 04:00 O2 Del Method Room Air 11/20/23 04:00 O2 Flow Rate 3 11/19/23 14:05 Discharge Plan Discharge Prescriptions: New oxycodone 5 mg tablet 5 - 10 mg PO Q4H PRN (Reason: pain) 7 Days Qty: 40 0RF Continued (DME) Compression Stockings See Rx Instructions .Route .MEDSUPPLY Qty: 2 0RF Rx Instructions: To be sized by pharmacy/store. guaifenesin 600 mg tablet extended release 12hr 600 mg PO BID Qty: 60 0RF (DME) Wheelchair See Rx Instructions .Route .MEDSUPPLY Qty: 1 0RF Rx Instructions: As directed clonidine HCl 0.1 mg tablet 0.1 mg PO TID Qty: 20 0RF Rx Instructions: Check Blood pressure twice daily. If top number is over 160 or bottom number is over 90 take one pill. cetirizine [Allergy Relief (cetirizine)] 10 mg tablet 10 mg PO DAILY PRN (Reason: Allergy Symptoms) 30 Days Qty: 90 2RF polyethylene glycol 3350 [Miralax] 17 gram/dose powder 17 g PO DAILY Qty: 119 5RF ergocalciferol (vitamin D2) 1,250 mcg (50,000 unit) capsule 1,250 mcg PO Q7D 90 Days Qty: 13 3RF clotrimazole [Antifungal (clotrimazole)] 1 % cream See Rx Instructions .ROUTE .COMPLEX Qty: 3 3RF Dose Instruction: APPLY ONE (1) APPLICATION TOPICALLY 3 TIMES DAILY FOR YEAST SKIN INFECTIONS Rx Instructions: APPLY ONE (1) APPLICATION TOPICALLY 3 TIMES DAILY FOR YEAST SKIN INFECTIONS hydrochlorothiazide 25 mg tablet 25 mg PO DAILY Qty: 90 3RF pantoprazole 40 mg tablet,delayed release (DR/EC) 40 mg PO DAILY Qty: 90 3RF albuterol sulfate 90 mcg/actuation HFA aerosol inhaler 2 inh inhalation Q6H PRN (Reason: shortness of breath or wheezing) Qty: 18 5RF azelastine 137 mcg (0.1 %) aerosol,spray 2 spray intranasal BID Qty: 30 2RF Rx Instructions: administer into each nostril triamcinolone acetonide 0.1 % cream See Rx Instructions .ROUTE .COMPLEX Qty: 80 2RF Dose Instruction: APPLY 1 APPLICATION TOPICALLY TO RASH TWICE DAILY NEEDED FOR TWO WEEKS THEN OFF FOR TWO WEEKS THEN MAY REPEAT Rx Instructions: APPLY 1 APPLICATION TOPICALLY TO RASH TWICE DAILY NEEDED FOR TWO WEEKS THEN OFF FOR TWO WEEKS THEN MAY REPEAT citalopram [Celexa] 10 mg tablet 10 mg PO DAILY Qty: 30 5RF meloxicam 15 mg tablet 15 mg PO DAILY PRN (Reason: pain) Qty: 30 3RF fluticasone propionate [Flonase Allergy Relief] 50 mcg/actuation spray,suspension 2 spray intranasal BID Qty: 16 3RF Rx Instructions: administer into each nostril Trelegy Ellipta 200-62.5-25 mcg blister with device 1 inh inhalation DAILY Qty: 60 3RF levothyroxine 50 mcg tablet 50 mcg PO DAILY acetaminophen 325 mg capsule 325 mg PO Q4H PRN (Reason: fever or pain) Qty: 60 0RF oxybutynin chloride 10 mg tablet extended release 24hr 10 mg PO DAILY Discontinued oxycodone-acetaminophen [Percocet] 5-325 mg tablet 1 tab PO TID PRN (Reason: pain) 30 Days Qty: 90 0RF Rx Instructions: fill on or after 30 day interval Discharge Orders: Discharge Order (Routine); Ordered 11/20/23 Ordered By: Doug Menjivar Discharge Diet: Advance as tolerated Discharge Activity: Limit activity as instructed Patient Instructions: Acute Wound Care (DC), Opioid Safety, Post Anesthesia Care Activity Restrictions/Additional Instructions: Thank you for [facility] for your care! The following is a list of instructions, from your provider, to follow upon your discharge to ensure you have the optimal recovery from your recent injury orsurgery. Follow-up care is a crespo part of your treatment and safety. Be sure to make and go to all appointments, and call your doctor if you are having problems. If you do not already have a follow-up appointment made, call Dr. Menjivar office in the next 1-3 days to make follow up appointment for 2 weeks at [phone]. It is also a good idea to know your test results and keep a list of the medicines you take. Medications will be prescribed for you at your provider's discretion. These medications are to be used as instructed; if they are taken more often that prescribed they will not be refilled early and in most cases will not be refilled at all. > When a refill is needed,you should contact jamar santacruz 2-3 business days before your prescription runs out. Medications will NOT be refilled by cotton chopper providers after hours! > Many pain medications contain Tylenol (Acetaminophen). Do not consume more than 4,000 mg of Tylenol per day in total with any combination ofmedications. > Pain medications can cause constipation. Please use an over the counter stool softener as directed, while taking pain medications. Consulty our local pharmacist with questions or recommendations on stool softeners. If constipation persists, contact our office or your primary care provider. > While under our care,you are not to receive pain medications or other controlled substances from any other provider unless our office is notified and approves. Any attempts to do so will result in refusal to prescribe any further pain medications and possible dismissal from our practice. ? Your wound and/or dressing should remain clean and dry for 2 days after surgery. On postoperative day 2 (48 hours after your surgery) the dressing (if present) should be removed and it is okay to shower and get the incision wet. Pad dry afterwards. No further dressing should be required from that point on. Do not put any creams or ointments on theincision > It is normal for there to be a small amount of discharge (bloody or blood tinged) present from a surgical wound for the first 1-3days. > The wound should be examined twice a day for signs of infection. Mild redness or bruising is to be expected but indications that an infection maybe starting would include; An increase in redness, swelling, or discharge, a foul odor present around the incision, and/or a fever greater than 101 ?F ? Showering is permitted, however we ask that you do not take a bath, sit in a whirlpool / Jacuzzi, or go swimming for 1 month. For only the first 2 days after surgery, lt wilt be necessary for you to cover your wound/dressing with plastic and tape to keep it dry. ? Walking is essential for the healing process after surgery. We would like you to slowly advance your walking. This should be done on relatively flat clear ground (inside or out) or can be done on a treadmill. Remember this goal does not have to happen all at once, slowly increase your distance and duration. This can be broken into more more than one walk per day as tolerated. Patients who walk as directed after surgery rarely require Physical Therapy. In the unlikely event this issue arises your provider will direct hospital staff to make the appropriate arrangements. ? No lifting over 5 pounds {a gallon of milk) or bending/twisting until further notice. Each of these activities places an unnecessary amount of stress onto the body and can impede the delicate healing process. > Instead of bending at the waist, keep your back straight and bend at the knees. > Instead of twisting your torso, keep your back straight and turn your entire body with your feet. ? You may sleep in any position which makes you comfortable. Many patients find comfort sleeping in a reclining chair. It is not abnormal to have difficulty sleeping for the first several weeks following your surgery. We recommend trying Benadry! or Tylenol PM as directed to help with your sleeping difficulties. Both medications are over the counter and available withoutprescription. ? NO SMOKING!!! Smoking dramatically increases the probability of developing postoperative wound infections. ? Common complaints after lumbar and/or thoracic spine surgery include, but are not limited to: numbness and/or tingling in the legs, pain around the incision and surrounding tissues, muscle spasms, or stiffness of the middle to low back. Contact our office if these symptoms persist or if an acute change occurs. ? No driving for the first 3-5days, and not while taking narcotics until seen at your follow-up appointment and cleared. There are no restrictions for riding on short trips, however if you take a longer trip, arrangements should be made to make regular stops to get out of the vehicle and stretch . ? Swelling is an unfortunate event that will take place with any surgery and is the primary source of your postoperative discomfort. While walking and regular approved activities helps control inflammation, there are additional steps you can take to minimizeswelling. > Place ice over the surgical site and surrounding tissue for twenty minutes, followed by applying a low/medium heat (heating pad) for an additional twenty minutes every 1-2 hours as needed for painrelief. > You may use of over the counter anti-inflammatory medications (Ibuprofen, Motrin, Aleve, Advil, etc) as directed on the package label. These types of medicines wm significantly reduce the amount of discomfort you experience after surgery from swelling. It should be noted that if you have and allergy to any of these medications, or a history of ulcers or kidney disease you should consult you primary care provider prior to starting these medications. Discharge Attestations Time Spent in Discharge Care*: less than 30 min Quality Metrics Clinical Quality Measures [ No reported AMI, CVA or VTE this stay] Coding Level of Care Code Acute Code for Krystag Fwjulissa
[2023-11-20] MEDS: levothyroxine 50 mcg Tablet PO (08:54)
[2023-11-20] MEDS: budesonide 0.5 mg/2 mL Neb INHALATION (08:54)
[2023-11-20] MEDS: citalopram 20 mg Tablet 10 MG PO (08:54)
[2023-11-20] MEDS: ipratropium-albuterol 3 mL Neb INHALATION (08:54)
[2023-11-20] MEDS: guaiFENesin 600 mg Tablet PO (08:56)
[2023-11-20] MEDS: docusate sodium 100 mg Capsule PO (08:56)
[2023-11-20] MEDS: pantoprazole DR 40 mg Tablet PO (08:56)
[2023-11-20] MEDS: cloNIDine 0.1 mg Tablet PO (08:57)
[2023-11-20] MEDS: hydroCHLOROthiazide 25 mg Tablet PO (08:57)
[2023-11-20] MEDS: oxybutynin chloride XL 5 MG TABLET 10 MG PO (08:59)
--- NOTE | 2023-11-20 09:26 | PC.CHAP ---
Pastoral Care Encounter/Spiritual Assessment Type of Contact [] Declined house mover supervisor visit [] Patient/Family/Request visit [] Outpatient visit [] Follow-up visit [] Physician referral [] Code/Alert [x] Routine visit [] Staff referral [] Actively dying [] Patient sleeping [x] Family support [] [] Out of room [] Palliative care [] [] Receiving care in room [] Pre-surgical visit [] Trauma [] Long length of stay [] ICU visit [] Other: Relational/Emotional Strength [x] Patient feels connected with others/family/visitors/staff [] Distress [] Loneliness/isolation [] Abandonment Spirituality of Patient [x] Person of Kristi [] Attends [facility]itan of their Kristi [x] Believes in Prayer [] Reads Bible or Mosque materials [] There are Spiritual issues to be addressed Grinder Set Up Operator Universal Interventions [x] Prayer [x] Active listening [] Non-anxious presence [x] Spiritual/emotional support [] Crisis/trauma care [] Spiritual counseling [] Bereavement support [] Provided bereavement packet [] Provided Bible/devotional materials [] Provided toy/stuffed animal, coloring book to patient or family member [] Provided Communion [] Anointing/Gilbert [] Salvation [x] Completed spiritual assessment [] Other: Impact on Illness or Injury [] Angry [] Fearful [] Anxious [] Often cries [] Exhaustion [] Unable to work [] Unable to attend mandaeism [] Unable to walk/stand [] Unable to read [] Unable to drive [] Unable to eat/drink [] Unable to sleep [] Unable to be with family [] Patient intubated [] Other: Summary Time spent with patient 5 min
[2023-11-20] MEDS: triamcinolone 0.1% cream 15 gm 1 APPLIC TOPICAL (11:10)
[2023-11-20] MEDS: clotrimazole 1% cream 30 gm 1 APPLIC TOPICAL (11:10)
[2023-11-20] MEDS: fluticasone nasal spray 16gm Btl 2 SPRAY INTRANASAL (11:11)
== END 2023-11-20 12:40 | disposition home or self-care (01) | DRG 517 ==
LOC: MEDSURG 13:16
PROVIDERS: Admitting Provider Orthopaedic Surgery; PCP Family Medicine Adult Medicine; Visit Provider Orthopaedic Surgery
PROC: 0QB00ZZ Excision of Lumbar Vertebra, Open Approach (ICD-10-PCS; CPT 63005; principal; 2023-11-19 10:55)
DX: M48.062 Spinal stenosis, lumbar region with neurogenic claudication (principal); E66.01 Morbid (severe) obesity due to excess calories; Z68.38 Body mass index [BMI] 38.0-38.9, adult; I12.9 Hypertensive chronic kidney disease with stage 1 through stage 4 chronic kidney disease, or unspecified chronic kidney disease; N18.2 Chronic kidney disease, stage 2 (mild); G62.9 Polyneuropathy, unspecified; K21.9 Gastro-esophageal reflux disease without esophagitis; G47.00 Insomnia, unspecified; J44.9 Chronic obstructive pulmonary disease, unspecified; E78.5 Hyperlipidemia, unspecified; E03.9 Hypothyroidism, unspecified; F32.A Depression, unspecified; F41.9 Anxiety disorder, unspecified; Z79.51 Long term (current) use of inhaled steroids
CPT/HCPCS: 36415; 51702; 72100; 76000; 85014; 85018; 94640; 97116; 97161; 97530; G0378; J0131; J0690; J1100; J1170; J1885; J2371; J2405; J2704; J3010; J3370; J3490; J7030; J7120; J7626

== ENCOUNTER → 2023-11-22 13:28 | Outpatient (BNVA) | payer MEDICARE, MEDICAID, SELFPAY | PROVIDERS: PCP Family Medicine Adult Medicine; Visit Provider Orthopaedic Surgery | DX: Z98.890 Other specified postprocedural states (principal) | CPT/HCPCS: 99024 ==

== ENCOUNTER → 2023-12-04 11:50 | Outpatient (BNVA) | payer MEDICARE, MEDICAID, SELFPAY | PROVIDERS: PCP Family Medicine Adult Medicine; Visit Provider Orthopaedic Surgery | DX: M48.062 Spinal stenosis, lumbar region with neurogenic claudication (principal) | CPT/HCPCS: 99024 ==

== ENCOUNTER → 2024-01-03 10:31 | Outpatient (BNVA) | payer MEDICARE, MEDICAID, SELFPAY | PROVIDERS: PCP Family Medicine Adult Medicine; Visit Provider Orthopaedic Surgery | DX: Z98.890 Other specified postprocedural states (principal) | CPT/HCPCS: 99024 ==

== ENCOUNTER → 2024-02-12 08:51 | Outpatient (BNVA) | payer MEDICARE, MEDICAID, SELFPAY | PROVIDERS: PCP Family Medicine Adult Medicine; Visit Provider Orthopaedic Surgery | DX: M48.062 Spinal stenosis, lumbar region with neurogenic claudication (principal) | CPT/HCPCS: 99024 ==

== ENCOUNTER 2024-03-18 12:23 | Outpatient (CLI) | payer MEDICARE, MEDICAID, SELFPAY ==
--- NOTE | 2024-03-18 12:28 | XRR_ITS ---
PROCEDURE INFORMATION: Exam: XR Left Hip Exam date and time: 03/18/2024 12:39 PM Age: 73 years old Clinical indication: Left hip; Prior surgery; Surgery date: 6+ months; Surgery type: Low back; Patient HX: Knee/hip pain for months but yesterday pain got so bad to where PT cannot walk. ; Additional info: L knee pain. No history of recent trauma or surgery is provided. TECHNIQUE: Imaging protocol: Radiologic exam of the left hip. 2image(s) are provided. Views: 2 or 3 views hip with pelvis when performed. COMPARISON: 1. CT abdomen pelvis w con* [id number] 08/22/2019 3:25 PM 2. CR XR knee LT 3V* [id number] 03/18/2024 12:39 PM 3. OT XR lumbar spine 2-3V* [id number] 11/19/2023 11:24 AM. MRI lumbar spine report 11/08/2023. FINDINGS: Bones/joints: No interval displaced fracture or dislocation is appreciated. There are some degenerative changes of the lumbosacral junction disc spaces as well as pubic symphysis. There appears to be some marginal degeneration of the left hip with some slight acetabular and greater trochanter spurring. Soft tissues: No radiopaque foreign body or subcutaneous emphysema is appreciated. Vasculature: Atherosclerotic vascular changes are demonstrated. Other findings: No other significant interval changes are appreciated. XR/XR hip LT 2-3V wo/w pel* [id number] IMPRESSION: Osseous alignment is maintained with some degenerative appearance overall. If there is persistent pain or limited range of motion then consider MRI.
--- NOTE | 2024-03-18 12:28 | XRR_ITS ---
PROCEDURE INFORMATION: Exam: XR Left Knee Exam date and time: 03/18/2024 12:39 PM Age: 73 years old Clinical indication: Left; Patient HX: Knee/hip pain for months but yesterday pain got so bad to where PT cannot walk. ; Additional info: Left knee pain TECHNIQUE: Imaging protocol: Radiologic exam of the left knee. 3image(s) are provided. Views: 3 views. COMPARISON: 1. CR XR tibia fibula LT 2V [id number] 08/16/2022 8:49 PM 2. CR XR hip LT 2-3V wo/w pel* [id number] 03/18/2024 12:39 PM FINDINGS: Bones/joints: There appears to be some trace joint fluid present. No interval displaced fracture or dislocation is appreciated. There is some mild multi compartmental degeneration present with some slight spurring and narrowing including patellofemoral and medial predominance. There appear to be some spurring changes of the distal medial femoral margin and could be seen with processes including developmental as well as previous injury related sequela. Soft tissues: No radiopaque foreign body or subcutaneous emphysema is appreciated. There is slight prominence of the soft tissues overall. Other findings: No other significant interval changes are appreciated. XR/XR knee LT 3V* [id number] IMPRESSION: Osseous alignment is maintained with no interval fracture or dislocation appreciated. If there is persistent pain or limited range of motion then consider MRI.
== END 2024-03-18 12:24 | disposition home or self-care (01) ==
LOC: RAD 12:25
PROVIDERS: PCP Family Medicine Adult Medicine; Visit Provider Family Medicine
DX: M16.12 Unilateral primary osteoarthritis, left hip (principal); M47.897 Other spondylosis, lumbosacral region; E53.8 Deficiency of other specified B group vitamins; I70.0 Atherosclerosis of aorta; M25.562 Pain in left knee
CPT/HCPCS: 73502; 73562; 82607; 84550; 85025

== ENCOUNTER → 2024-05-13 07:57 | Outpatient (BNVA) | payer MEDICARE, MEDICAID, SELFPAY | PROVIDERS: PCP Family Medicine Adult Medicine; Visit Provider Orthopaedic Surgery | DX: M48.062 Spinal stenosis, lumbar region with neurogenic claudication (principal) | CPT/HCPCS: 99213 ==

== ENCOUNTER 2024-05-27 05:00 | Outpatient (RCR) | payer MEDICARE, MEDICAID, SELFPAY | END 2024-06-25 23:59 | disposition home or self-care (01) | LOC: GPT 05:00 | PROVIDERS: Visit Provider Orthopaedic Surgery | DX: M17.12 Unilateral primary osteoarthritis, left knee (principal) | CPT/HCPCS: 97110; 97112; 97140; 97162; 97530 ==

== ENCOUNTER → 2024-06-19 07:16 | Outpatient (BNVA) | payer MEDICARE, MEDICAID, SELFPAY | PROVIDERS: PCP Family Medicine; Visit Provider Family Medicine | DX: R39.9 Unspecified symptoms and signs involving the genitourinary system (principal) | CPT/HCPCS: 81000 ==

== ENCOUNTER 2024-06-26 05:00 | Outpatient (RCR) | payer MEDICARE, MEDICAID, SELFPAY | END 2024-07-26 23:59 | disposition home or self-care (01) | LOC: GPT 05:00 | PROVIDERS: PCP Family Medicine; Visit Provider Orthopaedic Surgery | DX: M17.12 Unilateral primary osteoarthritis, left knee (principal) | CPT/HCPCS: 97110; 97530 ==

== ENCOUNTER 2024-07-21 13:06 | Inpatient (IN) | payer MEDICARE, MEDICAID, SELFPAY ==
[2024-07-21] VITALS (28 sets, daily range): BP systolic 88–167; BP diastolic 57–103; PULSE 72–119; RESP 16–18; TEMP 36.5; O2SAT 91–99; BMI 37.0
--- NOTE | 2024-07-21 13:16 | ECG_ITS ---
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[id number] Requested By: Sri Nicholas Order Number: [id number] Reading MD: KENAN BENÍTEZ Measurements Intervals [place] Rate: 101 P: 0 NM: 0 QRS: 4 QRSD: 77 T: 35 QT: 349 QTc: 454 Interpretive Statements ATRIAL FIBRILLATION WITH RAPID VENTRICULAR RESPONSE LOW QRS VOLTAGE IN PRECORDIAL LEADS [QRS DEFLECTION < 1.0 mV IN CHEST LEADS] SEPTAL MYOCARDIAL INFARCTION , PROBABLY OLD [40+ ms Q WAVE IN V1/V2] INTERPRETATION BASED ON A DEFAULT AGE OF 40 YEARS Compared to ECG 11/08/2023 17:14:19 Low QRS voltage now present Myocardial infarct finding now present Sinus rhythm no longer present T-wave abnormality no longer present Electronically Signed On 07-21-2024 19:02:37 CDT by KENAN BENÍTEZ [email or web address]
--- NOTE | 2024-07-21 13:29 | ED_ITS ---
HPI - Arrhythmia/Palpitations 2 General: Chief Complaint: Arrhythmia/Palpitations Stated Complaint: high bp Time Seen by Provider: 07/21/24 13:18 Source: patient Mode of arrival: ambulatory Limitations: no limitations History of Present Illness: 73-year-old female that states her blood pressures been running high over the last few days. States she has had some mild chest pain states she has chronic pain in her bilateral knees and has had some increased pain in her knees she is post to be scheduled for knee replacement she denies any headache denies any increased weakness. Associated symptoms: Deny nausea or vomiting Related Data Previous Rx's ?Medication ?Instructions ?Recorded Compression Stockings #2 ea 12/24/21 polyethylene glycol 3350 17 17 g PO DAILY #119 grams 0 11/10/22 gram/dose oral powder (Miralax) ergocalciferol (vitamin D2) 1,250 1,250 mcg PO Q7D 90 days #13 caps 01/31/23 mcg (50,000 unit) capsule acetaminophen 325 mg capsule 325 mg PO Q4H PRN fever o r pain 04/18/23 #60 caps Wheelchair #1 ea 11/13/23 clonidine HCl 0.1 mg tablet 0.1 mg PO TID #20 tabs triamcinolone acetonide 0.1 % See Rx Instructions .Rou te 01/30/24 topical cream .COMPLEX #80 grams cetirizine 10 mg tablet (Allergy 10 mg PO DAILY PRN Al lergy 02/14/24 Relief (cetirizine)) Symptoms 30 days #90 tabs albuterol sulfate 90 mcg/actuation 2 inh inhalation Q6 H PRN shortness 02/15/24 aerosol inhaler of breath or wheezing #18 gr ams fluticasone fur. 200 mcg-umeclid 1 inh inhalation HIPOLITO Y #60 ea 02/15/24 62.5 mcg-vilant 25 mcg inhalat.powder (Trelegy Ellipta) clotrimazole 1 % topical cream See Rx Instructions .Ro mary's igloo 02/25/24 (Athlete's Foot (clotrimazole)) .COMPLEX #90 grams fluticasone propionate 50 See Rx Instructions .Route 1 mcg/actuation nasal .COMPLEX #16 grams spray,suspension mecobalamin (vitamin B12) 1,000 1,000 mcg PO DAILY #90 tabs 01/21/25 mcg chewable tablet azelastine 137 mcg (0.1 %) nasal See Rx Instructions . Route 03/21/24 spray .COMPLEX #30 mL citalopram 10 mg tablet See Rx Instructions .Route 0 03/21/24 .COMPLEX #30 tabs hydrochlorothiazide 25 mg tablet 25 mg PO DAILY #90 ta bs 06/10/24 meloxicam 15 mg tablet 15 mg PO DAILY PRN pain #30 tabs 06/10/24 nystatin 100,000 unit/gram topical See Rx Instructions .Route 06/10/24 powder .COMPLEX #60 grams pantoprazole 40 mg tablet,delayed 40 mg PO DAILY #90 t abs 06/10/24 release epinephrine 0.15 mg/0.3 mL 0.15 mg (0.3 mL) IM Q30M OR N 06/19/24 injection,auto-injector (EpiPen Jr) anaphylaxis #2 ea fluconazole 150 mg tablet 150 mg PO DAILY #1 tab 06/19 oxybutynin chloride 15 mg 15 mg PO DAILY #90 tabs 05/28 06/20 tablet,extended release 24 hr Allergies Allergy/AdvReac Type Severity Reaction Status Date / Time codeine Allergy Intermediate ALGY-Rash Verified 07/21/24 13:21 hydrocodone Allergy Intermediate ALGY-Rash Verified 07/21/24 13:21 gabapentin Allergy dizzy Verified 07/21/24 13:21 Review of Systems 2 Const: Denies: fever(s), chills, body aches or change in appetite Eyes: Denies: blurry vision ENMT: Denies: throat pain or dental pain Card: Reports: chest pain Resp: Denies: dyspnea GI: Denies: abdominal pain, nausea, vomiting or diarrhea Musc: Reports: extremity pain; Denies: neck pain or back pain Skin/Breast: Denies: rash Neuro: Denies: headache(s) Psych: Denies: depression PFSH ED 2 PFSH: Medical History Urinary incontinence Chronic back pain greater than 3 months duration has been getting oxycodone/acetaminophen 5-325 gets 84 for 90 day; through Dr. Lama; referring to [facility] Pain Lymphedema of both lower extremities Vitamin D deficiency Overactive bladder Peripheral neuropathy COPD (chronic obstructive pulmonary disease) Hypothyroidism Hypertension Encounter for long-term opiate analgesic use on opiates per pain clinic Dr. Lama Left knee pain Vitamin B12 deficiency Spinal stenosis, lumbar region with neurogenic claudication Osteoarthritis involving multiple joints on both sides of body Obesity (BMI 30-39.9) Dementia Spinal stenosis of lumbar region Dr. [facility] SIJ joint inflammation, peripheral neuropathy, Rt hip pain Allergic rhinitis due to allergen Prediabetes GERD (gastroesophageal reflux disease) Insomnia Hyperlipidemia Depression Anxiety Surgical History History of lumbar laminectomy 9.24 Dr. Tiara MAHARAJ History of anterior colporrhaphy and posterior colpoorrhaphy History of carpal tunnel surgery of right wrist History of lumbar surgery p MIS lumbar spine decompression stenosis L3/[address] 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 Physical Exam 2 Const: COMMON NORMALS: no acute distress, patient oriented x3 and healthy appearing HENMT: COMMON NORMALS: normocephalic and atraumatic HEAD & SCALP: n ormocephalic and atraumatic Eye: COMMON NORMALS: conjunctivae normal CONJUNCTIVA: Yes conjunctivae normal Neck/C-Spine: COMMON NORMALS: full ROM and supple Chest: COMMONS NORMALS: normal inspection of the chest Resp: COMMON NORMALS: normal respiratory effort, No retractions, No use of accessory muscles and clear to auscultation bilaterally AUSCULTATION: clear to auscultation bilaterally Cardio: COMMON NORMALS: regular rate, regular rhythm and No murmurs present (Cardio) RATE: regular rate RHYTHM: regular rhythm GI: COMMON NORMALS: Normal to inspection, nondistended, normoactive bowel sounds present, Soft to palpation, non-tender and no masses PALPATION: Yes Soft to palpation Extremity: COMMON NORMALS: normal to inspection and full ROM Neuro: COMMON NORMALS: patient oriented x3, moves all extremities and no focal motor deficits Psych: COMMON NORMALS: mental status grossly normal, Normal thought process present and cooperative THOUGHT PROCESS: Normal thought process present Skin: COMMON NORMALS: no rashes or lesions noted and no wounds GENERAL SKIN EXAM: no rashes or lesions noted Course 2 Vital Signs: Vital signs: Vital Signs Temperature 97.7 F 07/21/24 13:07 Pulse Rate 94 07/21/24 16:45 Blood Pressure 120/65 07/21/24 16:45 Pulse Oximetry 98 07/21/24 16:30 Oxygen Delivery Me thod Room Air 07/21/24 15:27 MDM - Arrhythmia/Palpitations Medical Decision Making Patient presents for chest pain troponins CTA are negative she did go into A-fib with RVR here no history of A-fib she is on amiodarone drip I spoke to hospitalist will admit. Medical Records I reviewed the patient's medical records. Lab Data I reviewed the patient's lab results. 07/21/24 13:47 07/21/24 13:47 Radiology Impressions Chest CTA 07/21/24 15:25 IMPRESSION: 1. No evidence of pulmonary embolism. 2. Findings of bronchitis 3. Old granulomatous disease REFERENCES: Adolfo Vincent et al. Guidelines for Management of Incidental Pulmonary Nodules Detected on CT Images: From the Fleischner Society 2017. Radiology. 2017;284(1):228-243. Laboratory Results WBC 8.20 10^3/uL (3.29-11.43) 07/21/24 13:47 RBC 5.33 10^6/uL (3.85-5.65) 07/21/24 13:47 Hgb 14.20 g/dL (11.27-16.99) 07/21/24 13:47 Hct 44.2 % (36-47) 07/21/24 13:47 MCV 82.9 fl (85-98) L 07/21/24 13:47 MCH 26.6 pg (27-33) L 07/21/24 13:47 MCHC 32.1 g/dL (30-55) 07/21/24 13:47 RDW 15.2 % (12.1-15.1) H 07/21/24 13:47 Plt Count 337 10^3/cmm (157-399) 07/21/24 13:47 MPV 9.6 fL (7.4-10.4) 07/21/24 13:47 Neut % (Auto) 56.6 % 07/21/24 13:47 Lymph % (Auto) 30.0 % 07/21/24 13:47 Hettinger % (Auto) 10.1 % 07/21/24 13:47 Eos % (Auto) 2.1 % 07/21/24 13:47 Baso % (Auto) 1.0 % 07/21/24 13:47 Neut # (Auto) 4.64 10^3/uL (1.8-7.7) 07/21/24 13:47 Lymph # (Auto) 2.5 10^3/uL (0.8-4.8) 07/21/24 13:47 [place]tinger # (Auto) 0.8 10^3/uL (0.2-0.9) 07/21/24 13:47 Eos # (Auto) 0.2 10^3/uL (0.0-0.8) 07/21/24 13:47 Baso # (Auto) 0.1 10^3/uL (0.0-0.1) 07/21/24 13:47 Nucleated RBC % (auto) 0 % 07/21/24 13:47 Nucleated RBCs # 0.0 /100WBC 07/21/24 13:47 Sodium 139 mmol/L (136-145) 07/21/24 13:47 Potassium 3.9 mmol/L (3.5-5.1) 07/21/24 13:47 Chloride 101 mmol/L (98-107) 07/21/24 13:47 Carbon Dioxide 26 mmol/L (22-29) 07/21/24 13:47 Anion Gap 15.9 (5-19) 07/21/24 13:47 BUN 13 mg/dL (8-23) 07/21/24 13:47 Creatinine 0.9 mg/dL (0.5-0.9) 07/21/24 13:47 GFR Calculation Not Reportable 07/21/24 13:47 Glucose 106 mg/dL (65-115) 07/21/24 13:47 Calculated Osmolality 289 mOsm/kg (285-295) 07/21/24 13:47 Calcium 9.0 mg/dL (8.5-10.5) 07/21/24 13:47 Troponin T Baseline 11 ng/L (0-10) H 07/21/24 13:47 Troponin T 120 Minute 12.65 ng/L (0-10) H 07/21/24 15:50 Delta Troponin T 1.65 ABS# (0-10) 07/21/24 15:50 All radiology interpretation(s) finalized by discharge EKG Data EKG 1: I personally reviewed and interpreted this EKG as follows: EKG interpretation date: 07/21/24 EKG interpretation time: 14:45 Interpretation: nsr hr 93 nost elevation qrs 70 qtc 385 Other EKG comments: Chest CTA 07/21/24 15:25 IMPRESSION: 1. No evidence of pulmonary embolism. 2. Findings of bronchitis 3. Old granulomatous disease REFERENCES: Adolfo Vincent, et al. Guidelines for Management of Incidental Pulmonary Nodules Detected on CT Images: From the Fleischner Society 2017. Radiology. 2017;284(1):228-243. Discharge Plan Discharge Patient Disposition: Admitted As Inpatient Clinical Impression: Atrial fibrillation, Chest pain Condition: Stable Coding Level of Care Code ED Student Development Specialist for Ashia Vega
[2024-07-21 13:53] LABS: Basophils # 0.1 10^3/uL (0.0-0.1); Eosinophils # 0.2 10^3/uL (0.0-0.8); Eosinophils % 2.1 %; Hematocrit 44.2 % (36-47); Lymphocytes # 2.5 10^3/uL (0.8-4.8); Mean Corpuscular HGB Conc 32.1 g/dL (30-55); Mean Corpuscular Hemoglobin 26.6 pg (27-33); Mean Corpuscular Volume 82.9 fl (85-98); Mean Platelet Volume 9.6 fL (7.4-10.4); Monocytes # 0.8 10^3/uL (0.2-0.9); Monocytes % 10.1 %; Neutrophils # 4.64 10^3/uL (1.8-7.7); Neutrophils % 56.6 %; Nucleated Red Blood Cells % 0 %; Platelet Count 337 10^3/cmm (157-399); Red Blood Count 5.33 10^6/uL (3.85-5.65); Red Cell Distribution Width 15.2 % (12.1-15.1)
[2024-07-21 14:16] LABS: Anion Gap 15.9 (5-19); Blood Urea Nitrogen 13 mg/dL (8-23); Carbon Dioxide 26 mmol/L (22-29); Chloride 101 mmol/L (98-107); Creatinine Clr Calc Pharmacy 74.7704; Glucose 106 mg/dL (65-115); Osmolality Calculated 289 mOsm/kg (285-295); Potassium 3.9 mmol/L (3.5-5.1); Sodium 139 mmol/L (136-145)
[2024-07-21 14:19] LABS: Troponin(5th) Baseline 11 ng/L (0-10)
[2024-07-21] MEDS: hyDRALAzine 20 mg/mL INJ 1 mL 10 MG IVP (14:20)
[2024-07-21] MEDS: ondansetron 2 mg/ML SDV 2 mL 4 MG IVP (14:22)
[2024-07-21] MEDS: morphine 4 mg/mL SDV 1 mL IVP (14:22)
--- NOTE | 2024-07-21 14:45 | ECG_ITS ---
[facility] Date: 2024-07-21 Pat Name: Georgiana Mayo (Sue) Department: Room: Gender: Female Sample Tailor: : 1950 Requested By: Sri Nicholas Order Number: [id number] Reading MD: KENAN BENÍTEZ Measurements Intervals [place] Rate: 93 P: 208 MT: 221 QRS: 14 QRSD: 70 T: 40 QT: 334 QTc: 417 Interpretive Statements ECTOPIC ATRIAL RHYTHM WITH FIRST DEGREE AV BLOCK WITH FREQUENT SUPRAVENTRICULAR PREMATURE COMPLEXES LOW QRS VOLTAGE IN PRECORDIAL LEADS [QRS DEFLECTION < 1.0 mV IN CHEST LEADS] MODERATE ST DEPRESSION [0.05+ mV ST DEPRESSION] Compared to ECG 07/21/2024 13:16:01 Ectopic atrial rhythm now present First degree AV block now present ST (T wave) deviation now present Atrial fibrillation no longer present Myocardial infarct finding no longer present Electronically Signed On 07-21-2024 19:07:20 CDT by KENAN BENÍTEZ [id number]
--- NOTE | 2024-07-21 15:25 | CTR_ITS ---
PROCEDURE INFORMATION: Exam: CTA Chest With Contrast Exam date and time: 07/21/2024 4:15 PM Age: 73 years old Clinical indication: Pain; Chest pressure; Additional info: Cp TECHNIQUE: Imaging protocol: Computed tomographic angiography of the chest with contrast. Exam focused on the arteries. 3D rendering (Not supervised by radiologist): MIP and/or 3D reconstructed images were created by the technologist. Radiation optimization: All CT scans at this facility use at least one of these dose optimization techniques: automated exposure control; mA and/or kV adjustment per patient size (includes targeted exams where dose is matched to clinical indication); or iterative reconstruction. Contrast material: OMNI 350; Contrast volume: 61 ml; Contrast route: INTRAVENOUS (IV); COMPARISON: CT chest abdpel [id number]/*[id number] 08/01/2019 6:35 PM RADIATION DOSE METRICS: Total DLP (mGy-cm): 469.1 FINDINGS: Pulmonary arteries: There is no evidence of filling defects within the pulmonary arterial circulation to suggest pulmonary embolism. Aorta: There is no thoracic aortic aneurysm or dissection. Lungs: There is calcified granuloma in the lingula and 1 in the middle lobe near the minor fissure. There are noncalcified nodules posterior right lower lobe measuring 4 and 6 mm, and 2 3 mm sized noncalcified nodules in the middle lobe not significantly changed since 08/01/2019. Stable pulmonary nodule(s) for which no further follow-up is recommended. (Reference: Adolfo). There is bronchial wall thickening in both lower lobes and some mosaic perfusion pattern which may represent gas trapping from small airways disease. Findings are consistent with bronchitis. No focal consolidation is identified. Pleural spaces: Unremarkable. No pneumothorax. No pleural effusion. Heart: Heart is mildly enlarged. Coronary arteries: There is mild atherosclerotic calcification of the coronary arteries. Lymph nodes: There is some calcified left hilar lymph nodes in keeping with old granulomatous disease. There is prevascular lymph node measuring 10 x 15 mm and paratracheal lymph node measuring 10 x 10 mm. Bones/joints: Unremarkable. No acute fracture. Soft tissues: Unremarkable. CT/CT angio chest PE protcl [id number] IMPRESSION: 1. No evidence of pulmonary embolism. 2. Findings of bronchitis 3. Old granulomatous disease REFERENCES: Adolfo Vincent, et al. Guidelines for Management of Incidental Pulmonary Nodules Detected on CT Images: From the Fleischner Society 2017. Radiology. 2017;284(1):228-243.
[2024-07-21] MEDS: sodium chloride 0.9% 1,000 ML 999 ML IV ×2 (15:30→15:52)
[2024-07-21] MEDS: amiodarone 150 MG/100 ML PREMIX 400 MG IV (15:51)
[2024-07-21] MEDS: iohexol 350 mg/mL 500 mL Btl (per mL) IV (16:19)
[2024-07-21 16:22] LABS: Troponin 5 2HR 12.65 ng/L (0-10); Troponin 5 2HR Delta 1.65 ABS# (0-10)
--- NOTE | 2024-07-21 17:24 | P.HP_ITS ---
Providers/Chief Complaint 2 Primary Care Provider: Kaitlin Vidales MD Chief Complaint: high bp History of Present Illness Georgiana Mayo (Sue) is a 73 year old female with past medical history of hypothyroidism, hypertension back surgery presents to the ER today because of chest pain and fluttery feeling in her chest. As per the patient she was at her baseline till today morning when her checked her blood pressures which were found to be elevated. Little after that she started experiencing fluttering in her chest and chest pain so she presented to the ER. She states she feels fluttery feeling in the chest couple of times a week. In the ER she was found to have elevated blood pressures for which she was given IV hydralazine 1 time after which she became slightly hypotensive and had a run of A-fib with RVR hence she was started on amiodarone drip. Currently on examination heart rate running in 80s on amiodarone drip. Patient denies any further symptoms of chest pain. Review of Systems 2 General: Reports: 10 or more systems reviewed and unremarkable except in HPI and below Const: Denies: fever(s), chills, body aches, change in appetite, change in weight, malaise, night sweats, diaphoresis, change in sleep pattern, daytime sleepiness or snoring Eyes: Denies: change in vision, blurry vision, photophobia, eye discomfort or eye discharge ENMT: Denies: throat pain, enlarged tonsils, hoarseness, mouth pain, oral sores, dry mouth, tinnitus, nasal congestion or post nasal drip Card: Denies: chest pain, palpitations, irregular heart rhythm, edema, swelling of feet/ankles, lightheadedness, syncope, pre-syncope, dyspnea on exertion, orthopnea, leg pain with exertion or acrocyanosis Resp: Denies: dyspnea, productive cough, non-productive cough, wheezing, stridor, pain on inspiration, change in phlegm color, hemoptysis or chest congestion GI: Denies: abdominal pain, nausea, vomiting, hematemesis, coffee ground emesis, dysphagia, heartburn, diarrhea, constipation, bloating, GI cramping, change in bowel habits, pain on defecation, hematochezia or melena : Denies: flank pain, dysuria, urinary frequency, urinary urgency, urinary hesitancy, nocturia or hematuria Musc: Denies: neck pain, back pain, extremity pain, joint pain, joint swelling, joint redness, joint stiffness or limited range of motion Neuro: Denies: headache(s), numbness in extremities, weakness in extremities, sensory changes, lack of coordination, difficulty walking, frequent falls, dizziness, vertigo, confusion, Slurred speech present, difficulty communicating thoughts or seizure-like activity Psych: Denies: anxiety, depression, mood swings, panic attacks, hopelessness or irritability Endo: Denies: polyuria, polydipsia, tired all the time, cold intolerance, excessive sweating, flushing or heat intolerance Crow/Lymph: Denies: easy bruising or easy bleeding All/Imm: Denies: tongue swelling, facial swelling or acute wheezing Medications/Allergies Home Medications ?Medication ?Instructions ?Recorded ?Confirmed ?Last Taken ?Type acetaminophen 325 mg capsule 325 mg PO Q4H PRN fever o r pain 04/18/23 07/21/24 11/15/23 Rx #60 caps cetirizine 10 mg tablet (Allergy 10 mg PO DAILY PRN Al lergy 02/14/24 07/21/24 2 Weeks Ago Rx Relief (cetirizine)) Symptoms 30 days #90 tabs ~07/07/24 albuterol sulfate 90 mcg/actuation 2 inh inhalation Q6 H PRN shortness 02/15/24 07/21/24 Unknown Rx aerosol inhaler of breath or wheezing #18 gr ams clotrimazole 1 % topical cream See Rx Instructions .Ro spenser 02/25/24 07/21/24 07/18/24 Rx (Athlete's Foot (clotrimazole)) .COMPLEX #90 grams fluticasone propionate 50 See Rx Instructions .Route 1 07/21/24 Unknown Rx mcg/actuation nasal .COMPLEX #16 grams spray,suspension azelastine 137 mcg (0.1 %) nasal See Rx Instructions . Route 03/21/24 07/21/24 Unknown Rx spray .COMPLEX #30 mL citalopram 10 mg tablet See Rx Instructions .Route 0 03/21/24 07/21/24 07/21/24 Rx .COMPLEX #30 tabs meloxicam 15 mg tablet 15 mg PO DAILY PRN pain #30 tabs 06/10/24 07/21/24 07/21/24 Rx pantoprazole 40 mg tablet,delayed 40 mg PO DAILY #90 t abs 06/10/24 07/21/24 07/21/24 Rx release epinephrine 0.15 mg/0.3 mL 0.15 mg (0.3 mL) IM Q30M OH N 06/19/24 07/21/24 Unknown Rx injection,auto-injector (EpiPen Jr) anaphylaxis #2 ea oxybutynin chloride 15 mg 15 mg PO DAILY #90 tabs 05/2807/21/24 07/21/24 Rx tablet,extended release 24 hr amiodarone 200 mg tablet 200 mg PO DAILY #60 tabs Unknown Rx apixaban 5 mg tablet (Eliquis) 5 mg PO BID #60 tabs Unknown Rx dapagliflozin propanediol 10 mg 10 mg PO DAILY #30 tab s 07/22/24 Unknown Rx tablet (Farxiga) furosemide 40 mg tablet (Lasix) 20 mg (1/2 x 40 mg) PO QAM PRN 07/22/24 Unknown Rx weight gain #20 tabs metoprolol tartrate 25 mg tablet 25 mg PO BID@0900,210 0 30 days #60 07/22/24 Unknown Rx tabs oxycodone-acetaminophen 5 mg-325 1 tab PO Q4H PRN Pain 07/22/24 07/22/24 07/21/24 History mg tablet Allergies Allergy/AdvReac Type Severity Reaction Status Date / Time codeine Allergy Intermediate ALGY-Rash Verified 07/21/24 13:21 hydrocodone Allergy Intermediate ALGY-Rash Verified 07/21/24 13:21 gabapentin Allergy dizzy Verified 07/21/24 13:21 PFSH Acute 2 PFSH: Medical History Urinary incontinence Chronic back pain greater than 3 months duration has been getting oxycodone/acetaminophen 5-325 gets 84 for 90 day; through Dr. Lama; referring to [facility] Pain Lymphedema of both lower extremities Vitamin D deficiency Overactive bladder Peripheral neuropathy COPD (chronic obstructive pulmonary disease) Hypothyroidism Hypertension Encounter for long-term opiate analgesic use on opiates per pain clinic Dr. Lama Left knee pain Vitamin B12 deficiency Spinal stenosis, lumbar region with neurogenic claudication Osteoarthritis involving multiple joints on both sides of body Obesity (BMI 30-39.9) Dementia Spinal stenosis of lumbar region Dr. [facility] SIJ joint inflammation, peripheral neuropathy, Rt hip pain Allergic rhinitis due to allergen Prediabetes GERD (gastroesophageal reflux disease) Insomnia Hyperlipidemia Depression Anxiety Surgical History History of lumbar laminectomy 9.24 Dr. Menjivar [facility] History of anterior colporrhaphy and posterior colpoorrhaphy History of carpal tunnel surgery of right wrist History of lumbar surgery p MIS lumbar spine decompression stenosis L3/[address] 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 Vitals/I&O/Wt Last Vital Signs Temp 97.7 F 07/21/24 13:07 Pulse 94 07/21/24 16:45 BP 120/65 07/21/24 16:45 Pulse Ox 98 07/21/24 16:30 O2 Del Method Room Air 07/21/24 15:27 Weight last 48 hrs Weight 110.677 kg Physical Exam 2 Narrative: General: No acute distress, AO x3 HEENT: PERRLA, pupils bilaterally equal and reactive Chest: Normal vesicular breath sounds, no added sounds, equal good air entry bilaterally CVS: S1-S2 irregularly irregular, no murmurs, no tachycardia, no gallops, no rubs Abdomen: Soft, nontender, no organomegaly, bowel sounds present Neuro: No focal deficits, no facial deformity, AO x3, power 5/5 in all limbs Data 07/22/24 04:23 07/22/24 04:23 A&P Assessment and plan (1) Atrial fibrillation with RVR: Currently on amiodarone drip started in the ER. Continue amiodarone drip as per protocol. Transition to oral amiodarone in next 24 hours. Start on metoprolol 25 mg twice daily. Check TSH. Echocardiogram once heart rate below 100. BECKY-Vasc- 4 Will discuss with patient regarding need for anticoagulation for stroke prevention and start on Eliquis accordingly. (2) Chest pain: Most likely in setting of Afib. Cycle troponin. Check A1c, lipid panel. Echo as above (3) Hypertension: Goal BP less than 140/90 mmhg. Hold home dose of Clonidine 0.1 mg TID. Metoprolol as above. Uptitrate as per goal BP (4) Hypothyroidism: (5) Obesity (BMI 30-39.9): Plan Full code Heparin 5000 SQ q8h Pepcid 20 mg BID PDMP PDMP Reviewed: Not Reviewed Attestations 2 Medical Necessity Statement*: Admission for more than 2 midnights for management of A-fib with RVR as patient is requiring amiodarone drip Diagnoses Atrial fibrillation with RVR I48.91 Chest pain R07.9 Primary hypertension I10 Hypertension type: primary hypertension Acquired hypothyroidism E03.9 Hypothyroidism type: acquired Obesity (BMI 30-39.9) E66.9
[2024-07-21 17:54] LABS: Procalcitonin 0.05 ng/mL (0-0.5)
--- NOTE | 2024-07-21 19:26 | ECG_ITS ---
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: : 1950 Requested By: Sri Nicholas Order Number: [id number] Reading MD: KENAN BENÍTEZ Measurements Intervals [place] Rate: 101 P: 0 NH: 0 QRS: 17 QRSD: 80 T: 50 QT: 347 QTc: 451 Interpretive Statements ATRIAL FIBRILLATION WITH RAPID VENTRICULAR RESPONSE LOW QRS VOLTAGE IN PRECORDIAL LEADS [QRS DEFLECTION < 1.0 mV IN CHEST LEADS] MINIMAL ST DEPRESSION [0.025+ mV ST DEPRESSION] ABNORMAL RHYTHM ECG Compared to ECG 07/21/2024 14:45:25 Ectopic atrial rhythm no longer present First degree AV block no longer present ST (T wave) deviation still present Electronically Signed On 07-21-2024 19:07:13 CDT by KENAN BENÍTEZ [email or web address] [id number]
[2024-07-21 20:17] LABS: Troponin 5 6HR 14.43 ng/L (0-10); Troponin 5 6HR Delta 3.43 ng/L (0-12)
--- NOTE | 2024-07-21 20:30 | USCV_ITS ---
Georgiana Mayo(Araceli) Age: 73 Gender: F : 1950 Exam Date: 07/21/2024 20:57 Ordering Phys: Hubert Forrester MD Technologist: KANU [place] [facility] [place]: afib BP: 120 / 62 HR: 74 Rhythm: Sinus Technical Quality: Adequate MEASUREMENTS (Male / Female) Normal Values 2D ECHO LV Diastolic Diameter PLAX 3.8 cm 4.2 - 5.9 / 3.9 - 5.3 cm IVS Diastolic Thickness 1.1 cm 0.6 - 1.0 / 0.6 - 0.9 cm IVS Systolic Thickness 1.7 cm LVPW Diastolic Thickness 1.3 cm 0.6 - 1.0 / 0.6 - 0.9 cm LVPW Systolic Thickness 1.6 cm LVOT Diameter 2.1 cm LV Ejection Fraction 2D Teich 67.8 % LV Ejection Fraction MOD 4C 59.6 % LV Ejection Fraction MOD 2C 68.9 % LV Ejection Fraction 2C AL 69.4 % LA Diameter 4.2 cm Aorta at Sinotubular Diameter 2.5 cm IVC Diameter 1.7 cm M-MODE LA Ao Ratio MM 1.6 AV Cusp Separation MM 1.5 cm DOPPLER AV Peak Velocity 150.0 cm/s LVOT Peak Velocity 115.0 cm/s AV Area Cont Eq vti 3.4 cm squared AV Area Cont Eq pk 2.8 cm squared MV Peak Velocity 123.3 cm/s MV Area PHT 3.8 cm squared Mitral E to A Ratio 1.9 TV Peak Velocity 204.5 cm/s TR Peak Velocity 293.0 cm/s TR Peak Gradient 34.3 mmHg TV Peak E Velocity 47.0 cm/s PV Peak Velocity 116.0 cm/s FINDINGS Left Ventricle Normal left ventricular size, systolic function and wall thickness, with no regional wall motion abnormalities. Left ventricular ejection fraction is estimated at 60 %. Grade II/IV diastolic dysfunction, moderately elevated filling pressures. Right Ventricle The right ventricle is normal in size and function. Right Atrium The right atrium is normal in size. Left Atrium The left atrium is normal in size. Mitral Valve Structurally normal mitral valve without significant stenosis or prolapse. There is no mitral regurgitation. Aortic Valve Structurally normal aortic valve without significant sclerosis or stenosis. There is no aortic regurgitation. Tricuspid Valve Structurally normal tricuspid valve without significant stenosis or regurgitation. Pulmonary artery systolic pressure is normal. Pulmonic Valve Structurally normal pulmonic valve without significant stenosis. There is no pulmonic regurgitation. Pericardium Normal pericardium without effusion. Aorta Normal ascending aorta dimension. IVC The inferior vena cava appears normal. CONCLUSIONS Normal left ventricular size, systolic function and wall thickness, with no regional wall motion abnormalities. Left ventricular ejection fraction is estimated at 60 %. Grade II/IV diastolic dysfunction, moderately elevated filling pressures. There is no pericardial effusion. No significant valve abnormalities. Right atrial pressure is around 5 mm of mercury. Makayla Vital MD (Electronically Signed) Final Date: 21 Jul 2024 22:12 S
[2024-07-21] MEDS: heparin 5,000 unit/mL INJ 1 mL 5000 UNIT SUBCUT (21:29)
[2024-07-21] MEDS: metoprolol tartrate 25 mg Tablet PO (21:29)
[2024-07-21] MEDS: famotidine 20 mg Tablet PO (21:29)
[2024-07-21 21:34] LABS: Estmated Average Glucose 143; Hemoglobin A1C 6.6 % (4.0-6.0)
[2024-07-21 23:16] LABS: Iron 36 ug/dL (37-145); Percent Saturation 12.5 % (20-50); Thyroid Stimulating Hormone 4.82 uIU/mL (0.27-4.20); Total Iron Binding Capacity 288 mcg/dl; Unsaturated Iron Binding 252 ug/dL (112-347); Vitamin B12 298 pg/mL (232-1245)
[2024-07-21 23:45] LABS: Bilirubin Urine Negative (Negative); Blood Urine Negative (Negative); Glucose Urine UA Negative (Normal); Ketones Urine Negative (Negative); Leukocyte Esterase Urine Trace (Negative); Nitrate Urine Negative (Negative); Protein Urine Trace (Negative); Urine Appearance Clear (CLEAR); Urine Color Yellow (Yellow); pH Urine 5.5 (5-7)
[2024-07-21 23:49] LABS: Add Urine Microscopic? YES; Bacteria Urine None Seen /hpf; RBC Urine 0-2 /hpf (0-2); Squamous Epithelial Cell Urine 0-5 /hpf (0-5)
[2024-07-21 23:54] LABS: Specific Gravity, Urine 1.047 (1.005-1.030)
[2024-07-22] VITALS (7 sets, daily range): BP systolic 133–160; BP diastolic 68–93; PULSE 63–73; RESP 14–18; TEMP 36.2–36.9; O2SAT 95–98
[2024-07-22 04:44] LABS: Basophils # 0.1 10^3/uL (0.0-0.1); Basophils % 0.9 %; Eosinophils # 0.2 10^3/uL (0.0-0.8); Eosinophils % 1.8 %; Hematocrit 43.5 % (36-47); Lymphocytes # 2.2 10^3/uL (0.8-4.8); Lymphocytes % 27.2 %; Mean Corpuscular HGB Conc 31.5 g/dL (30-55); Mean Corpuscular Hemoglobin 27.2 pg (27-33); Mean Corpuscular Volume 86.5 fl (85-98); Mean Platelet Volume 9.6 fL (7.4-10.4); Monocytes # 0.8 10^3/uL (0.2-0.9); Monocytes % 9.5 %; Neutrophils # 4.93 10^3/uL (1.8-7.7); Neutrophils % 60.4 %; Nucleated Red Blood Cells % 0 %; Platelet Count 327 10^3/cmm (157-399); Red Blood Count 5.03 10^6/uL (3.85-5.65); Red Cell Distribution Width 15.9 % (12.1-15.1); White Blood Count 8.17 10^3/uL (3.29-11.43)
[2024-07-22 05:10] LABS: Chol HDL Ratio 4.59 mg/dL (0.0-4.40); Cholesterol 147 mg/dL (0-200); HDL Cholesterol 32 mg/dL (60-100); LDL Cholesterol Calculated 81 mg/dL (50-129); LDL HDL Ratio 2.53 RATIO (0.00-3.22); Triglycerides 168 mg/dL (0-150)
[2024-07-22 05:11] LABS: Alanine Aminotransferase 12 U/L (0-33); Albumin Level 3.5 g/dL (3.5-5.2); Alkaline Phosphatase 77 U/L (35-105); Aspartate Amino Transferase 13 U/L (0-32); Blood Urea Nitrogen 13 mg/dL (8-23); Carbon Dioxide 24 mmol/L (22-29); Chloride 104 mmol/L (98-107); Creatinine Clr Calc Pharmacy 75.5915; Globulin 3.3 g/dL (1.3-4.6); Glucose 114 mg/dL (65-115); Osmolality Calculated 293 mOsm/kg (285-295); Phosphorus 4.7 mg/dL (2.5-4.5); Sodium 141 mmol/L (136-145); Total Bilirubin 0.3 mg/dL (0.15-1.2); Total Protein 6.8 g/dL (6.6-8.7)
[2024-07-22 05:24] LABS: Folate Level 12.1 ng/mL (4.8-37.3)
[2024-07-22] MEDS: oxyCODONE-APAP 5-325 mg Tablet 1 TAB PO (05:39)
--- NOTE | 2024-07-22 08:24 | USCV_ITS ---
Georgiana Mayo(Araceli) Age: 73 Gender: F : 1950 Exam Date: 07/22/2024 13:22 Ordering Phys: Hubert Forrester MD Technologist: USR [place]am [place] [facility] [place]: possible bakers cyst HISTORY: POSSIBLE GALDAMEZ'S CYST PROCEDURES: Venous duplex imaging was performed in only the left lower extremity. The following venous structures were evaluated: common femoral vein, profunda vein, proximal portion of the greater saphenous vein, superficial femoral vein, and the popliteal vein. In addition, the posterior tibial and peroneal trunk were evaluated. FINDINGS: Normal 2-D Doppler and augmentation and compressibility throughout the lower extremity venous structures. Additional imaging through the proximal calf veins also reveals no thrombus. Limited evaluation of the greater saphenous vein is patent with no thrombus. Complex cystic mass with low level echos and no vascularity measuring 2.2 cm in the left popliteal fossa. CONCLUSIONS No DVT left lower extremity. Left popliteal fossa Galdamez's cyst. Dr. Nuha Luevano DO (Electronically Signed) Final Date: 22 Jul 2024 14:08 S
--- NOTE | 2024-07-22 08:25 | P.DS_ITS ---
Discharge Providers Date of Admission: 07/21/24 17:04 Date of Discharge: July 22, 2024 Attending Provider at Admission: Hubert Forrester MD Attending Provider at Discharge: Hubert Forrester MD Primary Care Provider: Kaitlin Vidales MD Diagnoses at Discharge Discharge Diagnosis (1) Atrial fibrillation with RVR: Status: Acute (2) Chest pain: Status: Acute (3) Hypertension: Status: Chronic Qualifiers: Hypertension type: primary hypertension Qualified Code(s): I10 - Essential (primary) hypertension (4) Hypothyroidism: Status: Chronic Qualifiers: Hypothyroidism type: acquired Qualified Code(s): E03.9 - Hypothyro idism, unspecified (5) Obesity (BMI 30-39.9): Status: Chronic Reason for Visit Reason for Visit: high bp Brief History: Georgiana Mayo (Sue) is a 73 year old female with past medical history of hypothyroidism, hypertension back surgery presents to the ER today because of chest pain and fluttery feeling in her chest. As per the patient she was at her baseline till today morning when her checked her blood pressures which were found to be elevated. Little after that she started experiencing fluttering in her chest and chest pain so she presented to the ER. She states she feels fluttery feeling in the chest couple of times a week. In the ER she was found to have elevated blood pressures for which she was given IV hydralazine 1 time after which she became slightly hypotensive and had a run of A-fib with RVR hence she was started on amiodarone drip. Currently on examination heart rate running in 80s on amiodarone drip. Patient denies any further symptoms of chest pain. Hospital Course Hospital Course Patient was admitted to the hospital further evaluation and management of A-fib with RVR. She was still continued on amiodarone drip after which she converted to normal sinus rhythm. Need for anticoagulation for stroke prevention were discussed in detail with the patient and she was agreeable. Echocardiogram was done which showed grade 2 diastolic dysfunction. She has been discharged in hemodynamically stable condition on oral amiodarone 200 mg twice daily for next 1 week followed by once daily. She started on Eliquis 5 mg twice daily for anticoagulation. Her home dose of hydrochlorothiazide has been discontinued. She is to take Farxiga which will help both with diabetes and diastolic heart failure. She can take Lasix as ne eded for a weight gain of more than 3 pounds. Discharge plan discussed in detail with the patient and all the questions were answered. Physical Exam Narrative: General: No acute distress, AO x3 HEENT: PERRLA, pupils bilaterally equal and reactive Chest: Normal vesicular breath sounds, no added sounds, equal good air entry bilaterally CVS: S1-S2 irregularly irregular, no murmurs, no tachycardia, no gallops, no rubs Abdomen: Soft, nontender, no organomegaly, bowel sounds present Neuro: No focal deficits, no facial deformity, AO x3, power 5/5 in all limbs Discharge Data Studies Completed and Pending Completed Studies During Hospitalization Category Date Time Status CTA chest [CT angio chest PE protcl [id number]] Stat Cat Scan 07/21/24 15:25 Completed CV. echo complete* [id number] Routine Ultrasound 07/21/24 20:30 Completed Pending at discharge Category Date Time Status Complete Blood Count w/Auto AM LABS Lab 07/23/24 04:00 Ordered Complete Blood Count w/Auto AM LABS Lab 07/24/24 04:00 Ordered Comprehensive Metabolic Panel AM LABS Lab 07/23/24 04:00 Ordered Comprehensive Metabolic Panel AM LABS Lab 07/24/24 04:00 Ordered Magnesium AM LABS Lab 07/23/24 04:00 Ordered Magnesium AM LABS Lab 07/24/24 04:00 Ordered Phosphorus AM LABS Lab 07/23/24 04:00 Ordered Phosphorus AM LABS Lab 07/24/24 04:00 [place] [id number] Routine Ultrasound 07/22/24 08:24 Ordered Radiology Impressions Chest CTA 07/21/24 15:25 IMPRESSION: 1. No evidence of pulmonary embolism. 2. Findings of bronchitis 3. Old granulomatous disease REFERENCES: Adolfo H, et al. Guidelines for Management of Incidental Pulmonary Nodules Detected on CT Images: From the Fleischner Society 2017. Radiology. 2017;284(1):228-243. Echocardiogram: CONCLUSIONS Normal left ventricular size, systolic function and wall thickness, with no regional wall motion abnormalities. Left ventricular ejection fraction is estimated at 60 %. Grade II/IV diastolic dysfunction, moderately elevated filling pressures. There is no pericardial effusion. No significant valve abnormalities. Right atrial pressure is around 5 mm of mercury. Makayla Vital MD (Electronically Signed) Final Date: 21 Jul 2024 22:12 Laboratory Results WBC 8.17 10^3/uL (3.29-11.43) 07/22/24 04:23 RBC 5.03 10^6/uL (3.85-5.65) 07/22/24 04:23 Hgb 13.70 g/dL (11.27-16.99) 07/22/24 04:23 Hct 43.5 % (36-47) 07/22/24 04:23 MCV 86.5 fl (85-98) 07/22/24 04:23 MCH 27.2 pg (27-33) 07/22/24 04:23 MCHC 31.5 g/dL (30-55) 07/22/24 04:23 RDW 15.9 % (12.1-15.1) H 07/22/24 04:23 Plt Count 327 10^3/cmm (157-399) 07/22/24 04:23 MPV 9.6 fL (7.4-10.4) 07/22/24 04:23 Neut % (Auto) 60.4 % 07/22/24 04:23 Lymph % (Auto) 27.2 % 07/22/24 04:23 Gonzales % (Auto) 9.5 % 07/22/24 04:23 Eos % (Auto) 1.8 % 07/22/24 04:23 Baso % (Auto) 0.9 % 07/22/24 04:23 Neut # (Auto) 4.93 10^3/uL (1.8-7.7) 07/22/24 04:23 Lymph # (Auto) 2.2 10^3/uL (0.8-4.8) 07/22/24 04:23 Gonzales # (Auto) 0.8 10^3/uL (0.2-0.9) 07/22/24 04:23 Eos # (Auto) 0.2 10^3/uL (0.0-0.8) 07/22/24 04:23 Baso # (Auto) 0.1 10^3/uL (0.0-0.1) 07/22/24 04:23 Nucleated RBC % (auto) 0 % 07/22/24 04:23 Nucleated RBCs # 0.0 /100WBC 07/22/24 04:23 Sodium 141 mmol/L (136-145) 07/22/24 04:23 Potassium 4.0 mmol/L (3.5-5.1) 07/22/24 04:23 Chloride 104 mmol/L (98-107) 07/22/24 04:23 Carbon Dioxide 24 mmol/L (22-29) 07/22/24 04:23 Anion Gap 17.0 (5-19) 07/22/24 04:23 BUN 13 mg/dL (8-23) 07/22/24 04:23 Creatinine 0.9 mg/dL (0.5-0.9) 07/22/24 04:23 GFR Calculation Not Reportable 07/22/24 04:23 Glucose 114 mg/dL (65-115) 07/22/24 04:23 Estimat Average Glucose 143 07/21/24 13:47 Hemoglobin A1c 6.6 % (4.0-6.0) H 07/21/24 13:47 Calculated Osmolality 293 mOsm/kg (285-295) 07/22/24 04:23 Calcium 9.0 mg/dL (8.5-10.5) 07/22/24 04:23 Phosphorus 4.7 mg/dL (2.5-4.5) H 07/22/24 04:23 Magnesium 2.0 mg/dL (1.7-2.3) 07/22/24 04:23 Iron 36 ug/dL (37-145) L 07/21/24 19:54 TIBC 288 mcg/dl 07/21/24 19:54 % Saturation 12.5 % (20-50) L 07/21/24 19:54 Unsat Iron Binding 252 ug/dL (112-347) 07/21/24 19:54 Total Bilirubin 0.3 mg/dL (0.15-1.2) 07/22/24 04:23 AST 13 U/L (0-32) 07/22/24 04:23 ALT 12 U/L (0-33) 07/22/24 04:23 Alkaline Phosphatase 77 U/L (35-105) 07/22/24 04:23 Troponin T Baseline 11 ng/L (0-10) H 07/21/24 13:47 Troponin T 120 Minute 12.65 ng/L (0-10) H 07/21/24 15:50 Delta Troponin T 1.65 ABS# (0-10) 07/21/24 15:50 Troponin T Hi Sens 6Hr 14.43 ng/L (0-10) H 07/21/24 19:54 Troponin T Hi Sens 6Hr Delta 3.43 ng/L (0-12) 07/21/24 19:54 Total Protein 6.8 g/dL (6.6-8.7) 07/22/24 04:23 Albumin 3.5 g/dL (3.5-5.2) 07/22/24 04:23 Globulin 3.3 g/dL (1.3-4.6) 07/22/24 04:23 Triglycerides 168 mg/dL (0-150) H 07/22/24 04:23 Cholesterol 147 mg/dL (0-200) 07/22/24 04:23 LDL Cholesterol, Calc 81 mg/dL (50-129) 07/22/24 04:23 HDL Cholesterol 32 mg/dL (60-100) L 07/22/24 04:23 LDL/HDL Ratio 2.53 RATIO (0.00-3.22) 07/22/24 04:23 Cholesterol/HDL Ratio 4.59 mg/dL (0.0-4.40) H 07/22/24 04:23 Vitamin B12 298 pg/mL (232-1245) 07/21/24 19:54 Folate 12.1 ng/mL (4.8-37.3) 07/22/24 04:23 Procalcitonin 0.05 ng/mL (0-0.5) 07/21/24 13:47 TSH 4.82 uIU/mL (0.27-4.20) H 07/21/24 19:54 Urine Color Yellow (Yellow) 07/21/24 22:04 Urine Appearance Clear (CLEAR) 07/21/24 22:04 Urine pH 5.5 (5-7) 07/21/24 22:04 Ur Specific [place] 1.047 (1.005-1.030) H 07/21/24 22:04 Urine Protein Trace (Negative) A 07/21/24 22:04 Urine Glucose (UA) Negative (Normal) 07/21/24 22:04 Urine Ketones Negative (Negative) 07/21/24 22:04 Urine Blood Negative (Negative) 07/21/24 22:04 Urine Nitrate Negative (Negative) 07/21/24 22:04 Urine Bilirubin Negative (Negative) 07/21/24 22:04 Urine Urobilinogen 2.0 mg/dL (Negative) H 07/21/24 22:04 Ur Leukocyte Esterase Trace (Negative) A 07/21/24 22:04 Urine RBC 0-2 /hpf (0-2) 07/21/24 22:04 Urine WBC 11-20 /hpf (0-5) H 07/21/24 22:04 Ur Squamous Epith Cells 0-5 /hpf (0-5) 07/21/24 22:04 Amorphous Sediment Not Reportable 07/21/24 22:04 Urine Bacteria None seen /hpf (NONE) 07/21/24 22:04 Hyaline Casts 0.40 /lpf 07/21/24 22:04 Vitals Last Vital Signs Temp 98.4 F 07/22/24 00:00 Pulse 65 07/22/24 04:00 Resp 18 07/22/24 05:39 BP 137/75 07/22/24 04:00 Pulse Ox 96 07/22/24 04:00 O2 Del Method Room Air 07/22/24 04:00 Discharge Plan Discharge Patient Disposition: Home Condition: Stable Prescriptions: New metoprolol tartrate 25 mg Tablet 25 mg PO BID@0900,2100 30 Days Qty: 60 0RF amiodarone 200 mg tablet 200 mg PO DAILY Qty: 60 0RF Rx Instructions: Take twice daily for next 1 week then once daily. dapagliflozin propanediol [Farxiga] 10 mg tablet 10 mg PO DAILY Qty: 30 3RF furosemide [Lasix] 40 mg tablet 20 mg PO QAM PRN (Reason: weight gain) Qty: 20 0RF Rx Instructions: For increase in body weight by 5 pounds Eliquis 5 mg tablet 5 mg PO BID Qty: 60 3RF Continued albuterol sulfate 90 mcg/actuation HFA aerosol inhaler 2 inh inhalation Q6H PRN (Reason: shortness of breath or wheezing) Qty: 18 5RF oxybutynin chloride 15 mg tablet extended release 24hr 15 mg PO DAILY Qty: 90 3RF epinephrine [EpiPen Jr] 0.15 mg/0.3 mL auto-injector 0.15 mg IM Q30M PRN (Reason: anaphylaxis) Qty: 2 0RF Rx Instructions: do not exceed 12 doses per 24 hrs cetirizine [Allergy Relief (cetirizine)] 10 mg tablet 10 mg PO DAILY PRN (Reason: Allergy Symptoms) 30 Days Qty: 90 2RF fluticasone propionate 50 mcg/actuation spray,suspension See Rx Instructions .ROUTE .COMPLEX Qty: 16 3RF Dose Instruction: USE 2 SPRAYS IN EACH NOSTRIL TWICE DAILY FOR COUGH Rx Instructions: USE 2 SPRAYS IN EACH NOSTRIL TWICE DAILY FOR COUGH clotrimazole [Athlete's Foot (clotrimazole)] 1 % cream See Rx Instructions .ROUTE .COMPLEX Qty: 90 3RF Dose Instruction: APPLY 1 APPLICATION TOPICALLY THREE TIMES DAILY FOR YEAST SKIN INFECTIONS Rx Instructions: APPLY 1 APPLICATION TOPICALLY THREE TIMES DAILY FOR YEAST SKIN INFECTIONS citalopram 10 mg tablet See Rx Instructions .ROUTE .COMPLEX Qty: 30 5RF Dose Instruction: TAKE ONE TABLET BY MOUTH ONCE DAILY FOR ANXIETY Rx Instructions: TAKE ONE TABLET BY MOUTH ONCE DAILY FOR ANXIETY azelastine 137 mcg (0.1 %) spray,non-aerosol See Rx Instructions .ROUTE .COMPLEX Qty: 30 2RF Dose Instruction: INSTILL 2 SPRAYS IN EACH NOSTRIL TWICE DAILY Rx Instructions: INSTILL 2 SPRAYS IN EACH NOSTRIL TWICE DAILY pantoprazole 40 mg tablet,delayed release (DR/EC) 40 mg PO DAILY Qty: 90 3RF meloxicam 15 mg tablet 15 mg PO DAILY PRN (Reason: pain) Qty: 30 3RF acetaminophen 325 mg capsule 325 mg PO Q4H PRN (Reason: fever or pain) Qty: 60 0RF oxycodone-acetaminophen 5-325 mg tablet 1 tab PO Q4H PRN (Reason: Pain) Discontinued hydrochlorothiazide 25 mg tablet 25 mg PO DAILY Qty: 90 3RF Discharge Orders: Discharge Order (Routine); Ordered 07/22/24 Ordered By: Hubert Forrester Referrals: Kaitlin Vidales MD [Primary Care Provider, Family Practice] - 4-7 days Discharge Diet: Cardiac Discharge Activity: Resume usual activity and Increase activity as tolerated Patient Instructions: Metoprolol (By mouth) (Lopressor, Toprol XL), Furosemide (By mouth) (Lasix), Amiodarone (By mouth) (Cordarone, Pacerone), Apixaban (By mouth) (Eliquis), Dapagliflozin (By mouth) (Farxiga), A-fib (Atrial Fibrillation) (DC), Hypertension (DC), Chest Pain Stoplight, Opioid Safety Activity Restrictions/Additional Instructions: Take amiodarone 200 mg twice daily for next 1 week followed by once daily. Take Farxiga once daily which will help both with your diabetes and symptoms of heart failure. Restrict fluid intake to less than 1500 cc, salt intake to less than 2 g daily. Advised to check his weight daily at home. Is advised that weight today would be the dry weight and if body weight increases by around 5 pounds, patient is to take a of Lasix daily till body weight comes down to weight today. If not able to come down to dry body weight in 1 week, then is to call cardiology office for further recommendations. Patient was counseled in detail to take medications regularly as prescribed. Discharge Attestations Time Spent in Discharge Care*: greater than 30 min Specific Discharge Activities: educating patient, educating and/or supporting family/caregiver, discussing with pcp/other providers, discussing with leather case finisher/social workers/dc planners, documenting/other paperwork and evaluating patient/reviewing data Status at Discharge: Cognitive status at discharge: cognitively intact , Behavioral status at discharge: cooperative , Functional status at discharge: independent ambulation , Overall status at discharge: patient is back to baseline Quality Metrics Clinical Quality Measures [ No reported AMI, CVA or VTE this stay] Coding Level of Care Code 12687 Total time (in minutes) for Discharge: 65 Diagnoses Atrial fibrillation with RVR I48.91 Chest pain R07.9 Primary hypertension I10 Hypertension type: primary hypertension Acquired hypothyroidism E03.9 Hypothyroidism type: acquired Obesity (BMI 30-39.9) E66.9
--- NOTE | 2024-07-22 10:12 | PC.CHAP ---
Pastoral Care Encounter/Spiritual Assessment Type of Contact [] Declined environmental health manager visit [] Patient/Family/Request visit [] Outpatient visit [] Follow-up visit [] Physician referral [] Code/Alert [x] Routine visit [] Staff referral [] Actively dying [] Patient sleeping [x] Family support [] [] Out of room [] Palliative care [] [] Receiving care in room [] Pre-surgical visit [] Trauma [] Long length of stay [] ICU visit [] Other: Relational/Emotional Strength [x] Patient feels connected with others/family/visitors/staff [] Distress [] Loneliness/isolation [] Abandonment Spirituality of Patient [x] Person of Kristi [] Attends Sikh of their Kristi [x] Believes in Prayer [] Reads Bible or Protestant materials [] There are Spiritual issues to be addressed Bird Raiser Interventions [x] Prayer [x] Active listening [x] Non-anxious presence [x] Spiritual/emotional support [] Crisis/trauma care [] Spiritual counseling [] Bereavement support [] Provided bereavement packet [] Provided Bible/devotional materials [] Provided toy/stuffed animal, coloring book to patient or family member [] Provided Communion [] Anointing/[place] [] Salvation [x] Completed spiritual assessment [] Other: Impact on Illness or Injury [] Angry [] Fearful [] Anxious [] Often cries [] Exhaustion [] Unable to work [] Unable to attend jain [] Unable to walk/stand [] Unable to read [] Unable to drive [] Unable to eat/drink [] Unable to sleep [] Unable to be with family [] Patient intubated [] Other: Summary Time spent with patient 10 min
[2024-07-22] MEDS: amiodarone 200 mg Tablet PO (12:42)
== END 2024-07-22 16:00 | disposition home or self-care (01) | DRG 309 ==
LOC: ER 17:06 → CSU 17:47
PROVIDERS: Admitting Provider Student in an Organized Health Care Education/Training Program; Emergency Provider Emergency Medicine; PCP Family Medicine; Visit Provider Student in an Organized Health Care Education/Training Program
DX: I48.91 Unspecified atrial fibrillation (principal); I50.32 Chronic diastolic (congestive) heart failure; I11.0 Hypertensive heart disease with heart failure; E03.9 Hypothyroidism, unspecified; E66.9 Obesity, unspecified; Z68.37 Body mass index [BMI] 37.0-37.9, adult; I95.9 Hypotension, unspecified; E11.9 Type 2 diabetes mellitus without complications; G89.29 Other chronic pain; M25.562 Pain in left knee; M25.561 Pain in right knee; E55.9 Vitamin D deficiency, unspecified; N32.81 Overactive bladder; G62.9 Polyneuropathy, unspecified; J44.9 Chronic obstructive pulmonary disease, unspecified; F41.9 Anxiety disorder, unspecified; F32.A Depression, unspecified; E78.5 Hyperlipidemia, unspecified; G47.00 Insomnia, unspecified; K21.9 Gastro-esophageal reflux disease without esophagitis; F03.90 Unspecified dementia, unspecified severity, without behavioral disturbance, psychotic disturbance, mood disturbance, and anxiety; E53.8 Deficiency of other specified B group vitamins; Z79.891 Long term (current) use of opiate analgesic; Z98.1 Arthrodesis status
CPT/HCPCS: 36415; 71275; 80048; 80053; 80061; 81001; 82607; 82746; 83036; 83540; 83550; 83735; 84100; 84145; 84443; 84484; 85025; 93005; 93306; 93971; 94664; 96365; 96366; 96372; 96375; 99291; A4222; J0283; J0360; J1644; J2270; J2405; J7030; J9999

== ENCOUNTER 2024-07-27 05:00 | Outpatient (RCR) | payer MEDICARE, MEDICAID, SELFPAY | END 2024-08-25 23:59 | disposition home or self-care (01) | LOC: GPT 05:00 | PROVIDERS: PCP Family Medicine; Visit Provider Orthopaedic Surgery | DX: M17.12 Unilateral primary osteoarthritis, left knee (principal) | CPT/HCPCS: 97110; 97140; 97530 ==

== ENCOUNTER → 2024-07-30 09:54 | Outpatient (BNVA) | payer MEDICARE, MEDICAID, SELFPAY | PROVIDERS: PCP Family Medicine; Visit Provider Family Medicine | DX: N89.8 Other specified noninflammatory disorders of vagina (principal) | CPT/HCPCS: 81000 ==

== ENCOUNTER → 2024-08-12 06:32 | Outpatient (BNVA) | payer MEDICARE, MEDICAID, SELFPAY | PROVIDERS: PCP Family Medicine; Visit Provider Orthopaedic Surgery | DX: M54.9 Dorsalgia, unspecified (principal); G89.29 Other chronic pain | CPT/HCPCS: 99213 ==

== ENCOUNTER → 2024-08-18 10:44 | Outpatient (BNVA) | payer MEDICARE, MEDICAID, SELFPAY | PROVIDERS: PCP Family Medicine; Visit Provider Family Medicine | DX: R30.0 Dysuria (principal) | CPT/HCPCS: 81000 ==

== ENCOUNTER 2024-08-26 05:00 | Outpatient (RCR) | payer MEDICARE, MEDICAID, SELFPAY | END 2024-09-25 23:59 | disposition home or self-care (01) | LOC: GPT 05:00 | PROVIDERS: PCP Family Medicine; Visit Provider Orthopaedic Surgery | DX: M17.12 Unilateral primary osteoarthritis, left knee (principal) | CPT/HCPCS: 97110; 97140 ==

== ENCOUNTER 2024-09-26 05:00 | Outpatient (RCR) | payer MEDICARE, MEDICAID, SELFPAY | END 2024-10-26 23:59 | disposition home or self-care (01) | LOC: GPT 05:00 | PROVIDERS: PCP Family Medicine; Visit Provider Orthopaedic Surgery | DX: M17.12 Unilateral primary osteoarthritis, left knee (principal) | CPT/HCPCS: 97110; 97164; 97530 ==

== ENCOUNTER 2024-10-27 05:00 | Outpatient (RCR) | payer MEDICARE, MEDICAID, SELFPAY | END 2024-11-25 23:59 | disposition home or self-care (01) | LOC: GPT 05:00 | PROVIDERS: PCP Family Medicine; Visit Provider Orthopaedic Surgery | DX: M17.12 Unilateral primary osteoarthritis, left knee (principal) | CPT/HCPCS: 97110; 97530 ==

== ENCOUNTER 2024-12-08 08:47 | Outpatient (RCR) | payer MEDICARE, MEDICAID, SELFPAY | END 2024-12-26 23:59 | disposition home or self-care (01) | LOC: GPT 08:47 | PROVIDERS: PCP Family Medicine; Visit Provider Orthopaedic Surgery | DX: M17.12 Unilateral primary osteoarthritis, left knee (principal) | CPT/HCPCS: 97110 ==

== ENCOUNTER 2024-12-29 08:30 | Outpatient (RCR) | payer MEDICARE, MEDICAID, SELFPAY | END 2025-01-25 23:59 | disposition home or self-care (01) | LOC: GPT 08:30 | PROVIDERS: PCP Family Medicine; Visit Provider Orthopaedic Surgery | DX: M17.12 Unilateral primary osteoarthritis, left knee (principal) | CPT/HCPCS: 97110 ==

== ENCOUNTER → 2025-01-19 08:46 | Outpatient (BNVA) | payer MEDICARE, MEDICAID, SELFPAY | PROVIDERS: PCP Family Medicine; Visit Provider Family Medicine | DX: R79.89 Other specified abnormal findings of blood chemistry (principal); R73.03 Prediabetes; E03.9 Hypothyroidism, unspecified; E53.8 Deficiency of other specified B group vitamins; I89.0 Lymphedema, not elsewhere classified; J06.9 Acute upper respiratory infection, unspecified; Z79.891 Long term (current) use of opiate analgesic | CPT/HCPCS: 80053; 81000; 82607; 83036; 84443; 85025 ==